=== PATIENT | male | born 1935 | race Asian ===

== ENCOUNTER 2017-09-16 10:32 | Inpatient (IN) | payer MEDICARE, OTHER, MEDICAID ==
[2017-09-16 11:18] LABS: ADD MAN DIFF? NO
[2017-09-16 11:23] LABS: BASOPHILS % 0.3 % (0.0-2.0); EOSINOPHILS % 0.2 % (0.0-7.0); HEMATOCRIT 28.3 % (42.0-52.0); HEMOGLOBIN 9.4 g/dl (14.0-18.0); LYMPHOCYTES # 0.8 10^3/ul (0.8-2.9); LYMPHOCYTES % 12.7 % (15.0-51.0); MEAN CORPUSCULAR HEMOGLOBIN 33.2 pg (29.0-33.0); MEAN CORPUSCULAR HGB CONC 33.2 g/dl (32.0-37.0); MEAN PLATELET VOLUME 9.9 fl (7.4-10.4); MONOCYTE # 0.4 10^3/ul (0.3-0.9); NEUTROPHIL # 4.8 10^3/ul (1.6-7.5); NEUTROPHILS % 79.6 % (39.0-77.0); PLATELET COUNT 164 10^3/UL (140-415); RED BLOOD COUNT 2.83 10^6/ul (4.70-6.10); RED CELL DISTRIBUTION WIDTH 12.7 % (11.5-14.5)
[2017-09-16] MEDS ORDERED: ATROPINE 1 MG/10 ML SYRINGE (11:42)
[2017-09-16] MEDS: SOD CHLORIDE 0.9% 1,000 ML IV (11:46)
[2017-09-16] MEDS: ATROPINE 1 MG INJ IV (11:46)
[2017-09-16 11:51] LABS: ALANINE AMINOTRANSFERASE 48 IU/L (13-69); ALKALINE PHOSPHATASE 43 IU/L (42-121); ANION GAP 15 (8-16); ASPARTATE AMINO TRANSFERASE 55 IU/L (15-46); BILIRUBIN,INDIRECT 0.4 mg/dl (0-1.1); BILIRUBIN,TOTAL 0.4 mg/dl (0.2-1.3); BLOOD UREA NITROGEN 38 mg/dl (7-20); CALCIUM 8.9 mg/dl (8.4-10.2); CARBON DIOXIDE 21 mmol/L (21-31); CHLORIDE 104 mmol/L (97-110); CREATININE 1.61 mg/dl (0.61-1.24); GLUCOSE 123 mg/dl (70-220); POTASSIUM 4.6 mmol/L (3.5-5.1); SODIUM 135 mmol/L (135-144)
[2017-09-16 11:52] LABS: ALBUMIN 3.8 g/dl (3.3-4.9); ALBUMIN/GLOBULIN RATIO 1.58; CREATINE KINASE 110 IU/L (23-200); TOTAL PROTEIN 6.2 g/dl (6.1-8.1)
[2017-09-16 11:56] LABS: INR 0.95; PROTIME 12.8 Sec (11.9-14.9)
[2017-09-16 11:57] LABS: PARTIAL THROMBOPLASTIN TIME 26.1 Sec (25.0-35.0)
[2017-09-16 12:01] LABS: B-TYPE NATRIURETIC PEPTIDE 2000 PG/ML (0-450); CK INDEX 1.1; CK-MB 1.25 ng/ml (0.0-2.4)
[2017-09-16 12:03] LABS: TROPONIN-I 0.123 ng/ml (0.000-0.120)
[2017-09-16] MEDS: ALBUTEROL 0.5% (NEB) 2.5 MG/0.5 ML AMP INH (12:12)
[2017-09-16] MEDS: ASPIRIN 325 MG TAB PO (13:08)
[2017-09-16] MEDS: ISOPROTERENOL IV ×4 (13:46→22:09)
[2017-09-16] MEDS: DEXTROSE 5% IV ×4 (13:46→22:09)
[2017-09-16] MEDS ORDERED: NA PHOSPHATE/BIPHOS 133 ML ENEMA PR (14:00)
[2017-09-16] MEDS ORDERED: DOCUSATE SODIUM 100 MG CAP PO ×2 (14:00)
[2017-09-16] MEDS ORDERED: ONDANSETRON 4 MG INJ IV (14:00)
[2017-09-16] MEDS ORDERED: ALBUTEROL/IPRATROPIUM (NEB) 3 ML AMP HHN (14:00)
[2017-09-16] MEDS ORDERED: hydrALAzine 20 MG INJ IV (14:00)
[2017-09-16] MEDS ORDERED: LORAZEPAM 2 MG INJ IV (14:00)
[2017-09-16] MEDS ORDERED: HYDROCODONE/APAP (5/325) TAB PO (14:00)
[2017-09-16] MEDS ORDERED: NACL 0.9% 3 ML SYG IV (14:00)
[2017-09-16] MEDS ORDERED: NITROGLYCERIN (SL) 0.4 MG TAB SL (14:00)
[2017-09-16] MEDS ORDERED: morphine 2 MG INJ IV (14:00)
[2017-09-16] MEDS ORDERED: MAGNESIUM HYDROXIDE 30ML CUP PO (14:00)
[2017-09-16 14:06] LABS: HEMOGLOBIN A1C 5.8 % (0-5.9)
[2017-09-16 14:20] LABS: FREE T4 (FREE THYROXINE) 1.25 ng/dl (0.85-1.93)
[2017-09-16] MEDS: SOD CHLORIDE 0.45% 1,000 ML IV (15:00)
[2017-09-16] MEDS: FISH OIL 1,000 MG CAP PO ×2 (16:04→20:12)
[2017-09-16 16:22] LABS: TROPONIN-I 0.133 ng/ml (0.000-0.120)
[2017-09-16] MEDS: CREON (24K-76K-120K) 1 CAP PO (17:42)
[2017-09-16] MEDS: DOXAZOSIN 4 MG TAB PO (20:12)
[2017-09-16] MEDS: LUBIPROSTONE 24 MCG CAP PO (20:12)
[2017-09-16] MEDS: BACLOFEN 10 MG TAB PO (20:12)
[2017-09-16] MEDS: ATORVASTATIN 40 MG TAB PO (20:12)
[2017-09-16] MEDS: HEPARIN 5,000 UNIT/0.5 ML VIAL SC (20:16)
[2017-09-16 20:22] LABS: TROPONIN-I 0.249 ng/ml (0.000-0.120)
[2017-09-17 00:56] LABS: TROPONIN-I 0.478 ng/ml (0.000-0.120)
[2017-09-17] MEDS: DEXTROSE 5% IV ×2 (02:10→07:05)
[2017-09-17] MEDS: ISOPROTERENOL IV ×2 (02:10→07:05)
[2017-09-17 05:31] LABS: ADD MAN DIFF? NO
[2017-09-17 05:43] LABS: WHITE BLOOD COUNT 7.3 10^3/ul (4.8-10.8)
[2017-09-17 05:43] LABS: BASOPHILS % 0.1 % (0.0-2.0); EOSINOPHILS % 0.3 % (0.0-7.0); HEMATOCRIT 25.9 % (42.0-52.0); HEMOGLOBIN 8.6 g/dl (14.0-18.0); LYMPHOCYTES # 1.1 10^3/ul (0.8-2.9); MEAN CORPUSCULAR HEMOGLOBIN 33.5 pg (29.0-33.0); MEAN CORPUSCULAR HGB CONC 33.2 g/dl (32.0-37.0); MEAN CORPUSCULAR VOLUME 100.8 fl (82.0-101.0); MEAN PLATELET VOLUME 9.8 fl (7.4-10.4); MONOCYTE # 0.6 10^3/ul (0.3-0.9); MONOCYTES % 8.3 % (0.0-11.0); NEUTROPHIL # 5.6 10^3/ul (1.6-7.5); PLATELET COUNT 165 10^3/UL (140-415); RED BLOOD COUNT 2.57 10^6/ul (4.70-6.10); RED CELL DISTRIBUTION WIDTH 12.8 % (11.5-14.5)
[2017-09-17 06:00] LABS: INR 0.95; PROTIME 12.8 Sec (11.9-14.9)
[2017-09-17 06:09] LABS: ANION GAP 12 (8-16); BLOOD UREA NITROGEN 27 mg/dl (7-20); CALCIUM 8.5 mg/dl (8.4-10.2); CARBON DIOXIDE 21 mmol/L (21-31); CHLORIDE 104 mmol/L (97-110); CHOLESTEROL 110 mg/dl (100-200); CREATININE 1.05 mg/dl (0.61-1.24); GLUCOSE 124 mg/dl (70-220); HDL CHOLESTEROL 36 mg/dl (31-75); LDL CHOLESTEROL,CALCULATED 54 mg/dl; POTASSIUM 3.1 mmol/L (3.5-5.1); SODIUM 134 mmol/L (135-144); TRIGLYCERIDES 99 mg/dl (0-149)
[2017-09-17 06:25] LABS: TROPONIN-I 0.503 ng/ml (0.000-0.120)
[2017-09-17 06:42] LABS: PHOSPHORUS 3.8 mg/dl (2.5-4.9)
[2017-09-17 06:42] LABS: MAGNESIUM 2.2 mg/dl (1.7-2.5)
[2017-09-17] MEDS: SOD CHLORIDE 0.45% 1,000 ML IV (07:05)
[2017-09-17] MEDS ORDERED: LIDOCAINE 1%/EPI 30 ML INJ (07:07)
[2017-09-17] MEDS: POLYMYXIN/BACITRACIN 1L IRRIG IRR (07:30)
[2017-09-17 07:32] LABS: HEMOGLOBIN A1C 5.4 % (0-5.9)
[2017-09-17] MEDS ORDERED: PROPOFOL 20 ML (07:43)
[2017-09-17] MEDS ORDERED: MIDAZOLAM 1 MG/ML 2 ML INJ (07:43)
[2017-09-17] MEDS ORDERED: FENTAnyl 50 MCG/ML VIAL (07:43)
[2017-09-17] MEDS: HEPARIN 5,000 UNIT/0.5 ML VIAL SC ×2 (08:56→21:08)
[2017-09-17] MEDS ORDERED: HYDROCHLOROTHIAZIDE 12.5 MG CAP PO (09:00)
[2017-09-17] MEDS ORDERED: LOSARTAN 50 MG TAB PO (09:00)
[2017-09-17] MEDS ORDERED: POTASSIUM CHLORIDE 50 ML IVPB (10:00)
[2017-09-17] MEDS: PANTOPRAZOLE (EC) 40 MG TAB PO (10:28)
[2017-09-17] MEDS: CREON (24K-76K-120K) 1 CAP PO ×3 (10:29→17:35)
[2017-09-17] MEDS: LUBIPROSTONE 24 MCG CAP PO ×2 (10:29→21:01)
[2017-09-17] MEDS: FISH OIL 1,000 MG CAP PO ×2 (10:29→21:07)
[2017-09-17] MEDS: NIFEdipine (XL) 30 MG TAB PO (10:29)
[2017-09-17] MEDS: BACLOFEN 10 MG TAB PO ×2 (10:33→21:31)
[2017-09-17] MEDS: CLOPIDOGREL 75 MG TAB PO (10:33)
[2017-09-17] MEDS: ACETAMINOPHEN 325 MG TAB PO (12:52)
[2017-09-17] MEDS: POTASSIUM CHLORIDE (SR) 20 MEQ TAB PO (12:52)
[2017-09-17] MEDS: ATORVASTATIN 40 MG TAB PO (21:06)
[2017-09-17] MEDS: DOXAZOSIN 4 MG TAB PO (21:07)
[2017-09-18] MEDS: SOD CHLORIDE 0.45% 1,000 ML IV (05:34)
[2017-09-18 06:38] LABS: ADD MAN DIFF? NO
[2017-09-18 06:42] LABS: BASOPHILS % 0.4 % (0.0-2.0); EOSINOPHILS # 0.1 10^3/ul (0.0-0.5); EOSINOPHILS % 0.8 % (0.0-7.0); HEMATOCRIT 28.7 % (42.0-52.0); HEMOGLOBIN 10.1 g/dl (14.0-18.0); LYMPHOCYTES # 0.8 10^3/ul (0.8-2.9); LYMPHOCYTES % 11.4 % (15.0-51.0); MEAN CORPUSCULAR HEMOGLOBIN 35.1 pg (29.0-33.0); MEAN CORPUSCULAR HGB CONC 35.2 g/dl (32.0-37.0); MEAN CORPUSCULAR VOLUME 99.7 fl (82.0-101.0); MEAN PLATELET VOLUME 9.8 fl (7.4-10.4); MONOCYTE # 0.6 10^3/ul (0.3-0.9); MONOCYTES % 8.6 % (0.0-11.0); NEUTROPHIL # 5.7 10^3/ul (1.6-7.5); NEUTROPHILS % 78.5 % (39.0-77.0); PLATELET COUNT 166 10^3/UL (140-415); RED BLOOD COUNT 2.88 10^6/ul (4.70-6.10); RED CELL DISTRIBUTION WIDTH 12.7 % (11.5-14.5)
[2017-09-18 06:42] LABS: WHITE BLOOD COUNT 7.2 10^3/ul (4.8-10.8)
[2017-09-18 07:19] LABS: ANION GAP 9 (8-16); BLOOD UREA NITROGEN 17 mg/dl (7-20); CALCIUM 9.1 mg/dl (8.4-10.2); CARBON DIOXIDE 24 mmol/L (21-31); CHLORIDE 113 mmol/L (97-110); CREATININE 0.95 mg/dl (0.61-1.24); GLUCOSE 108 mg/dl (70-220); POTASSIUM 3.8 mmol/L (3.5-5.1); SODIUM 142 mmol/L (135-144)
[2017-09-18] MEDS: LUBIPROSTONE 24 MCG CAP PO (09:28)
[2017-09-18] MEDS: CREON (24K-76K-120K) 1 CAP PO ×2 (09:28→12:31)
[2017-09-18] MEDS: CLOPIDOGREL 75 MG TAB PO (09:28)
[2017-09-18] MEDS: NIFEdipine (XL) 30 MG TAB PO (09:28)
[2017-09-18] MEDS: FISH OIL 1,000 MG CAP PO (09:28)
[2017-09-18] MEDS: PANTOPRAZOLE (EC) 40 MG TAB PO (09:28)
[2017-09-18] MEDS: BACLOFEN 10 MG TAB PO (09:28)
[2017-09-18] MEDS: HEPARIN 5,000 UNIT/0.5 ML VIAL SC (09:32)
== END 2017-09-18 17:15 | disposition home or self-care (01) | DRG 244 ==
LOC: E/R 10:32 → MS4 09-17 14:39 → ICU 12:40
PROC: 0JH604Z Insertion of Pacemaker, Single Chamber into Chest Subcutaneous Tissue and Fascia, Open Approach (ICD-10-PCS; principal; 2017-09-17 07:30)
PROC: 02HK3JZ Insertion of Pacemaker Lead into Right Ventricle, Percutaneous Approach (ICD-10-PCS; 2017-09-17 07:30)
DX: I44.2 Atrioventricular block, complete (principal); E78.5 Hyperlipidemia, unspecified; F03.90 Unspecified dementia, unspecified severity, without behavioral disturbance, psychotic disturbance, mood disturbance, and anxiety; I10 Essential (primary) hypertension; I25.10 Atherosclerotic heart disease of native coronary artery without angina pectoris; E87.6 Hypokalemia; R00.1 Bradycardia, unspecified; Z95.5 Presence of coronary angioplasty implant and graft; Z85.46 Personal history of malignant neoplasm of prostate; Z87.891 Personal history of nicotine dependence; Z79.02 Long term (current) use of antithrombotics/antiplatelets
CPT/HCPCS: 71045; 80048; 80053; 80061; 82550; 82553; 83036; 83735; 83880; 84100; 84439; 84443; 84484; 85025; 85610; 85730; 92610; 93005; 93306; 94644; 96374; 97161; 97530; 99291-25

== ENCOUNTER 2017-11-12 14:56 | Emergency (ER) | payer MEDICARE, OTHER ==
[2017-11-12 16:47] LABS: ADD MAN DIFF? NO
[2017-11-12 16:56] LABS: BASOPHILS % 0.4 % (0.0-2.0); EOSINOPHILS % 0.5 % (0.0-7.0); HEMATOCRIT 26.5 % (42.0-52.0); HEMOGLOBIN 8.8 g/dl (14.0-18.0); MEAN CORPUSCULAR HEMOGLOBIN 33.5 pg (29.0-33.0); MEAN CORPUSCULAR HGB CONC 33.2 g/dl (32.0-37.0); MEAN CORPUSCULAR VOLUME 100.8 fl (82.0-101.0); MEAN PLATELET VOLUME 9.9 fl (7.4-10.4); MONOCYTE # 0.7 10^3/ul (0.3-0.9); MONOCYTES % 10.2 % (0.0-11.0); NEUTROPHIL # 5.5 10^3/ul (1.6-7.5); NEUTROPHILS % 75.5 % (39.0-77.0); PLATELET COUNT 157 10^3/UL (140-415); RED BLOOD COUNT 2.63 10^6/ul (4.70-6.10); RED CELL DISTRIBUTION WIDTH 13.2 % (11.5-14.5)
[2017-11-12 16:56] LABS: WHITE BLOOD COUNT 7.3 10^3/ul (4.8-10.8)
[2017-11-12 16:58] LABS: ADD UMIC NO; UR ASCORBIC ACID 40 mg/dL (NEGATIVE); UR BILIRUBIN (Dip) NEGATIVE (NEGATIVE); UR BLOOD (Dip) NEGATIVE (NEGATIVE); UR CLARITY CLEAR (CLEAR); UR COLOR YELLOW (YELLOW); UR GLUCOSE (Dip) NEGATIVE (NEGATIVE); UR KETONES (Dip) NEGATIVE (NEGATIVE); UR LEUKOCYTE ESTERASE (Dip) NEGATIVE Leu/ul (NEGATIVE); UR NITRITE (Dip) NEGATIVE (NEGATIVE); UR SPECIFIC GRAVITY (Dip) 1.017 (1.003-1.030); UR TOTAL PROTEIN (Dip) NEGATIVE (NEGATIVE); UR UROBILINOGEN (Dip) 2+ mg/dL (NEGATIVE)
[2017-11-12] MEDS: SOD CHLORIDE 0.9% 500 ML IV (17:10)
[2017-11-12 17:13] LABS: INR 0.94; PARTIAL THROMBOPLASTIN TIME 29.6 Sec (25.0-35.0); PROTIME 12.7 Sec (11.9-14.9)
[2017-11-12 17:20] LABS: ANION GAP 12 (8-16); BLOOD UREA NITROGEN 27 mg/dl (7-20); CALCIUM 9.1 mg/dl (8.4-10.2); CARBON DIOXIDE 26 mmol/L (21-31); CHLORIDE 108 mmol/L (97-110); CREATININE 0.94 mg/dl (0.61-1.24); GLUCOSE 111 mg/dl (70-220); POTASSIUM 3.8 mmol/L (3.5-5.1); SODIUM 142 mmol/L (135-144)
[2017-11-12 17:31] LABS: TROPONIN-I 0.028 ng/ml (0.000-0.120)
[2017-11-12] MEDS ORDERED: ACETAMINOPHEN 325 MG TAB PO ×2 (18:30→19:00)
[2017-11-12] MEDS ORDERED: ONDANSETRON 4 MG INJ IV ×2 (18:30→19:00)
[2017-11-12] MEDS ORDERED: SOD CHLORIDE 0.9% 1,000 ML IV (19:00)
[2017-11-12] MEDS ORDERED: HYDROCODONE/APAP (5/325) TAB PO (19:00)
[2017-11-13] MEDS ORDERED: ALBUTEROL/IPRATROPIUM (NEB) 3 ML AMP HHN (06:00)
[2017-11-13] MEDS ORDERED: PANTOPRAZOLE (EC) 40 MG TAB PO (06:00)
[2017-11-13] MEDS ORDERED: ACETAMINOPHEN 325 MG TAB PO (06:00)
[2017-11-13] MEDS ORDERED: NACL 0.9% 3 ML SYG IV (06:00)
[2017-11-13] MEDS ORDERED: DOCUSATE SODIUM 100 MG CAP PO (06:00)
[2017-11-13] MEDS ORDERED: ONDANSETRON 4 MG INJ IV (06:00)
[2017-11-13] MEDS ORDERED: CLOPIDOGREL 75 MG TAB PO (09:00)
[2017-11-13] MEDS ORDERED: NON-FORMULARY/PATIENT OWN MED (Omega-3 Acid Ethyl Esters (Lovaza) 2 GM) PO (09:00)
[2017-11-13] MEDS ORDERED: NIFEdipine (XL) 30 MG TAB PO (09:00)
[2017-11-13] MEDS ORDERED: FISH OIL 1,000 MG CAP PO (09:00)
[2017-11-13] MEDS ORDERED: DOXAZOSIN 4 MG TAB PO (21:00)
[2017-11-13] MEDS ORDERED: ATORVASTATIN 40 MG TAB PO (21:00)
== END 2017-11-12 19:29 | disposition left against medical advice (07) ==
LOC: E/R 14:56
DX: S92.911A Unspecified fracture of right toe(s), initial encounter for closed fracture (principal); S30.0XXA Contusion of lower back and pelvis, initial encounter; R53.1 Weakness; I10 Essential (primary) hypertension; W18.30XA Fall on same level, unspecified, initial encounter; Y92.9 Unspecified place or not applicable; Z85.46 Personal history of malignant neoplasm of prostate
CPT/HCPCS: 29515; 36415; 70450; 71045; 72131; 73550; 73552; 73630; 80048; 81003; 84484; 85025; 85610; 85730; 93005; 99285-25

== ENCOUNTER 2017-11-13 12:25 | Inpatient (IN) | payer MEDICARE, OTHER ==
[2017-11-13 14:11] LABS: ADD MAN DIFF? NO
[2017-11-13 14:13] LABS: WHITE BLOOD COUNT 5.7 10^3/ul (4.8-10.8)
[2017-11-13 14:13] LABS: BASOPHILS % 0.4 % (0.0-2.0); EOSINOPHILS # 0.1 10^3/ul (0.0-0.5); EOSINOPHILS % 0.9 % (0.0-7.0); HEMATOCRIT 26.9 % (42.0-52.0); HEMOGLOBIN 8.8 g/dl (14.0-18.0); LYMPHOCYTES # 0.8 10^3/ul (0.8-2.9); LYMPHOCYTES % 14.2 % (15.0-51.0); MEAN CORPUSCULAR HEMOGLOBIN 33.6 pg (29.0-33.0); MEAN CORPUSCULAR HGB CONC 32.7 g/dl (32.0-37.0); MEAN CORPUSCULAR VOLUME 102.7 fl (82.0-101.0); MEAN PLATELET VOLUME 9.6 fl (7.4-10.4); MONOCYTE # 0.5 10^3/ul (0.3-0.9); MONOCYTES % 8.1 % (0.0-11.0); NEUTROPHIL # 4.3 10^3/ul (1.6-7.5); NEUTROPHILS % 76.2 % (39.0-77.0); PLATELET COUNT 157 10^3/UL (140-415); RED BLOOD COUNT 2.62 10^6/ul (4.70-6.10); RED CELL DISTRIBUTION WIDTH 13.2 % (11.5-14.5)
[2017-11-13 14:29] LABS: ANION GAP 12 (8-16); BLOOD UREA NITROGEN 21 mg/dl (7-20); CALCIUM 8.8 mg/dl (8.4-10.2); CARBON DIOXIDE 23 mmol/L (21-31); CHLORIDE 108 mmol/L (97-110); CREATININE 0.88 mg/dl (0.61-1.24); GLUCOSE 98 mg/dl (70-220); POTASSIUM 3.9 mmol/L (3.5-5.1); SODIUM 139 mmol/L (135-144)
[2017-11-13] MEDS ORDERED: ACETAMINOPHEN 325 MG TAB PO ×2 (15:00→18:00)
[2017-11-13] MEDS ORDERED: ONDANSETRON 4 MG INJ IV ×2 (15:00→18:00)
[2017-11-13] MEDS ORDERED: ALBUTEROL/IPRATROPIUM (NEB) 3 ML AMP HHN (18:00)
[2017-11-13] MEDS ORDERED: morphine 2 MG INJ IV (18:00)
[2017-11-13] MEDS ORDERED: hydrALAzine 20 MG INJ IV (18:00)
[2017-11-13] MEDS ORDERED: LORAZEPAM 2 MG INJ IV (18:00)
[2017-11-13] MEDS ORDERED: NACL 0.9% 3 ML SYG IV (18:00)
[2017-11-13] MEDS ORDERED: DOCUSATE SODIUM 100 MG CAP PO ×2 (18:00)
[2017-11-13] MEDS ORDERED: NA PHOSPHATE/BIPHOS 133 ML ENEMA PR (18:00)
[2017-11-13] MEDS ORDERED: HYDROCODONE/APAP (5/325) TAB PO (18:00)
[2017-11-13] MEDS ORDERED: NITROGLYCERIN (SL) 0.4 MG TAB SL (18:00)
[2017-11-13] MEDS ORDERED: MAGNESIUM HYDROXIDE 30ML CUP PO (18:00)
[2017-11-13 18:30] LABS: FREE T4 (FREE THYROXINE) 1.88 ng/dl (0.85-1.93)
[2017-11-13] MEDS: DOXAZOSIN 4 MG TAB PO (20:39)
[2017-11-13] MEDS: HEPARIN 5,000 UNIT/0.5 ML VIAL SC (20:39)
[2017-11-13] MEDS: FISH OIL 1,000 MG CAP PO (20:39)
[2017-11-13] MEDS: ATORVASTATIN 40 MG TAB PO (20:41)
[2017-11-13] MEDS: SOD CHLORIDE 0.45% 1,000 ML IV (20:52)
[2017-11-13] MEDS ORDERED: NON-FORMULARY/PATIENT OWN MED (Omega-3 Acid Ethyl Esters (Lovaza) 2 GM) PO (21:00)
[2017-11-14] MEDS ORDERED: PANTOPRAZOLE (EC) 40 MG TAB PO (06:00)
[2017-11-14] MEDS: SOD CHLORIDE 0.45% 1,000 ML IV (07:10)
[2017-11-14 08:07] LABS: CHOL/HDL RATIO 3.4 RATIO; HDL CHOLESTEROL 40 mg/dl (31-75); LDL CHOLESTEROL,CALCULATED 81 mg/dl; TRIGLYCERIDES 88 mg/dl (0-149)
[2017-11-14 08:07] LABS: CHOLESTEROL 139 mg/dl (100-200)
[2017-11-14 08:09] LABS: HEMOGLOBIN A1C 5.6 % (0-5.9)
[2017-11-14] MEDS: FISH OIL 1,000 MG CAP PO ×2 (09:47→20:12)
[2017-11-14] MEDS: FAMOTIDINE 20 MG TAB PO (09:48)
[2017-11-14] MEDS: NIFEdipine (XL) 30 MG TAB PO (09:48)
[2017-11-14] MEDS: CLOPIDOGREL 75 MG TAB PO (09:48)
[2017-11-14] MEDS: HEPARIN 5,000 UNIT/0.5 ML VIAL SC ×2 (10:08→20:27)
[2017-11-14] MEDS ORDERED: DICLOFENAC SODIUM 1% GEL 100 GM TUBE TP (13:00)
[2017-11-14] MEDS: ASPIRIN (EC) 81 MG TAB PO (13:36)
[2017-11-14] MEDS: DICLOFENAC SODIUM 1% GEL 100 GM TUBE TP ×3 (13:37→20:13)
[2017-11-14 13:53] LABS: B-TYPE NATRIURETIC PEPTIDE 2060 PG/ML (0-450)
[2017-11-14 18:37] LABS: TROPONIN-I 0.022 ng/ml (0.000-0.120)
[2017-11-14] MEDS: DOXAZOSIN 4 MG TAB PO (20:12)
[2017-11-14] MEDS: ATORVASTATIN 40 MG TAB PO (20:12)
[2017-11-14] MEDS: DORZOLAMIDE/TIMOLOL 10 ML OPH BOTH EYES (20:12)
[2017-11-15 01:17] LABS: TROPONIN-I 0.042 ng/ml (0.000-0.120)
[2017-11-15] MEDS: FAMOTIDINE 20 MG TAB PO (08:56)
[2017-11-15] MEDS: CLOPIDOGREL 75 MG TAB PO (08:56)
[2017-11-15] MEDS: FISH OIL 1,000 MG CAP PO ×2 (08:56→20:28)
[2017-11-15] MEDS: DICLOFENAC SODIUM 1% GEL 100 GM TUBE TP ×4 (08:57→20:38)
[2017-11-15] MEDS: DORZOLAMIDE/TIMOLOL 10 ML OPH BOTH EYES ×2 (08:57→20:36)
[2017-11-15] MEDS: NIFEdipine (XL) 30 MG TAB PO (08:57)
[2017-11-15] MEDS: HEPARIN 5,000 UNIT/0.5 ML VIAL SC ×2 (08:58→20:36)
[2017-11-15] MEDS: ASPIRIN (EC) 81 MG TAB PO (09:00)
[2017-11-15 10:46] LABS: ADD MAN DIFF? NO
[2017-11-15 10:58] LABS: BASOPHILS % 0.7 % (0.0-2.0); EOSINOPHILS # 0.1 10^3/ul (0.0-0.5); EOSINOPHILS % 1.1 % (0.0-7.0); HEMATOCRIT 30.3 % (42.0-52.0); HEMOGLOBIN 10.2 g/dl (14.0-18.0); LYMPHOCYTES # 0.9 10^3/ul (0.8-2.9); LYMPHOCYTES % 15.6 % (15.0-51.0); MEAN CORPUSCULAR HEMOGLOBIN 33.3 pg (29.0-33.0); MEAN CORPUSCULAR HGB CONC 33.7 g/dl (32.0-37.0); MEAN PLATELET VOLUME 9.7 fl (7.4-10.4); MONOCYTE # 0.4 10^3/ul (0.3-0.9); MONOCYTES % 7.5 % (0.0-11.0); NEUTROPHIL # 4.1 10^3/ul (1.6-7.5); NEUTROPHILS % 74.9 % (39.0-77.0); PLATELET COUNT 203 10^3/UL (140-415); RED BLOOD COUNT 3.06 10^6/ul (4.70-6.10); RED CELL DISTRIBUTION WIDTH 13.1 % (11.5-14.5)
[2017-11-15 10:58] LABS: WHITE BLOOD COUNT 5.5 10^3/ul (4.8-10.8)
[2017-11-15 11:16] LABS: ANION GAP 10 (8-16); BLOOD UREA NITROGEN 23 mg/dl (7-20); CALCIUM 8.8 mg/dl (8.4-10.2); CARBON DIOXIDE 24 mmol/L (21-31); CHLORIDE 107 mmol/L (97-110); CREATININE 0.94 mg/dl (0.61-1.24); GLUCOSE 109 mg/dl (70-220); POTASSIUM 4.2 mmol/L (3.5-5.1); SODIUM 137 mmol/L (135-144)
[2017-11-15 11:24] LABS: TROPONIN-I 0.016 ng/ml (0.000-0.120)
[2017-11-15 13:16] LABS: TROPONIN-I 0.018 ng/ml (0.000-0.120)
[2017-11-15 18:57] LABS: TROPONIN-I 0.016 ng/ml (0.000-0.120)
[2017-11-15] MEDS: ATORVASTATIN 40 MG TAB PO (20:28)
[2017-11-15] MEDS: DOXAZOSIN 4 MG TAB PO (20:29)
[2017-11-16 06:35] LABS: ADD MAN DIFF? NO
[2017-11-16 06:49] LABS: WHITE BLOOD COUNT 5.2 10^3/ul (4.8-10.8)
[2017-11-16 06:49] LABS: BASOPHIL # 0.1 10^3/ul (0.0-0.1); EOSINOPHILS # 0.1 10^3/ul (0.0-0.5); EOSINOPHILS % 1.7 % (0.0-7.0); HEMOGLOBIN 9.5 g/dl (14.0-18.0); LYMPHOCYTES # 1.2 10^3/ul (0.8-2.9); LYMPHOCYTES % 23.2 % (15.0-51.0); MEAN CORPUSCULAR HEMOGLOBIN 33.5 pg (29.0-33.0); MEAN CORPUSCULAR HGB CONC 33.9 g/dl (32.0-37.0); MEAN CORPUSCULAR VOLUME 98.6 fl (82.0-101.0); MEAN PLATELET VOLUME 9.9 fl (7.4-10.4); MONOCYTE # 0.5 10^3/ul (0.3-0.9); MONOCYTES % 8.8 % (0.0-11.0); NEUTROPHIL # 3.4 10^3/ul (1.6-7.5); NEUTROPHILS % 64.9 % (39.0-77.0); PLATELET COUNT 193 10^3/UL (140-415); RED BLOOD COUNT 2.84 10^6/ul (4.70-6.10)
[2017-11-16 07:09] LABS: ANION GAP 10 (8-16); CALCIUM 8.7 mg/dl (8.4-10.2); CARBON DIOXIDE 24 mmol/L (21-31); CHLORIDE 110 mmol/L (97-110); CREATININE 0.99 mg/dl (0.61-1.24); GLUCOSE 100 mg/dl (70-220); POTASSIUM 3.8 mmol/L (3.5-5.1); SODIUM 140 mmol/L (135-144)
[2017-11-16 07:10] LABS: BLOOD UREA NITROGEN 28 mg/dl (7-20)
[2017-11-16] MEDS: CLOPIDOGREL 75 MG TAB PO (08:53)
[2017-11-16] MEDS: FAMOTIDINE 20 MG TAB PO (08:53)
[2017-11-16] MEDS: DORZOLAMIDE/TIMOLOL 10 ML OPH BOTH EYES (08:53)
[2017-11-16] MEDS: FISH OIL 1,000 MG CAP PO (08:53)
[2017-11-16] MEDS: NIFEdipine (XL) 30 MG TAB PO (08:54)
[2017-11-16] MEDS: HEPARIN 5,000 UNIT/0.5 ML VIAL SC (08:54)
[2017-11-16] MEDS: ASPIRIN (EC) 81 MG TAB PO (08:55)
[2017-11-16] MEDS: DICLOFENAC SODIUM 1% GEL 100 GM TUBE TP ×3 (08:56→16:27)
== END 2017-11-16 20:00 | DRG 556 ==
LOC: TEL 18:05 → E/R 12:25 → PP2 14:40 → TEL 21:28
DX: M62.81 Muscle weakness (generalized) (principal); I25.10 Atherosclerotic heart disease of native coronary artery without angina pectoris; Z95.5 Presence of coronary angioplasty implant and graft; I10 Essential (primary) hypertension; Z95.0 Presence of cardiac pacemaker; Z79.02 Long term (current) use of antithrombotics/antiplatelets; Z85.46 Personal history of malignant neoplasm of prostate; E78.00 Pure hypercholesterolemia, unspecified; S92.341D Displaced fracture of fourth metatarsal bone, right foot, subsequent encounter for fracture with routine healing; S92.351D Displaced fracture of fifth metatarsal bone, right foot, subsequent encounter for fracture with routine healing; X58.XXXD Exposure to other specified factors, subsequent encounter; N40.0 Benign prostatic hyperplasia without lower urinary tract symptoms
CPT/HCPCS: 36415; 70450; 71045; 72131; 73550; 73552; 73630; 80048; 80061; 81003; 83036; 83880; 84439; 84443; 84484; 85025; 85610; 85730; 92610; 93005; 93306; 97116; 97162; 97166; 97530; 99217; 99285-25; G0378

== ENCOUNTER 2017-11-16 20:42 | Inpatient (IN) | payer MEDICARE, OTHER ==
[2017-11-16] MEDS ORDERED: ONDANSETRON 4 MG INJ IV (23:07)
[2017-11-16] MEDS ORDERED: NACL 0.9% 3 ML SYG IV (23:07)
[2017-11-16] MEDS ORDERED: ALBUTEROL/IPRATROPIUM (NEB) 3 ML AMP HHN (23:07)
[2017-11-16] MEDS ORDERED: NITROGLYCERIN (SL) 0.4 MG TAB SL (23:07)
[2017-11-16] MEDS ORDERED: LORAZEPAM 2 MG INJ IV (23:07)
[2017-11-16] MEDS ORDERED: hydrALAzine 20 MG INJ IV (23:07)
[2017-11-16] MEDS ORDERED: DOCUSATE SODIUM 100 MG CAP PO (23:07)
[2017-11-16] MEDS ORDERED: HYDROCODONE/APAP (5/325) TAB PO (23:07)
[2017-11-16] MEDS ORDERED: HEPARIN 5,000 UNIT/0.5 ML VIAL SC (23:07)
[2017-11-16] MEDS ORDERED: MAGNESIUM HYDROXIDE 30ML CUP PO (23:07)
[2017-11-16] MEDS ORDERED: DORZOLAMIDE/TIMOLOL 10 ML OPH BOTH EYES (23:07)
[2017-11-16] MEDS ORDERED: DOXAZOSIN 4 MG TAB PO (23:07)
[2017-11-16] MEDS ORDERED: ATORVASTATIN 40 MG TAB PO (23:07)
[2017-11-16] MEDS ORDERED: FISH OIL 1,000 MG CAP PO (23:07)
[2017-11-16] MEDS ORDERED: NA PHOSPHATE/BIPHOS 133 ML ENEMA PR (23:07)
[2017-11-16] MEDS: DORZOLAMIDE/TIMOLOL 10 ML OPH BOTH EYES (23:33)
[2017-11-16] MEDS: HEPARIN 5,000 UNIT/0.5 ML VIAL SC (23:35)
[2017-11-16] MEDS: ATORVASTATIN 40 MG TAB PO (23:36)
[2017-11-16] MEDS: FISH OIL 1,000 MG CAP PO (23:36)
[2017-11-16] MEDS: DOXAZOSIN 4 MG TAB PO (23:48)
[2017-11-17] MEDS ORDERED: BISACODYL 10 MG SUPP PR (01:30)
[2017-11-17] MEDS ORDERED: LACTULOSE 30ML CUP PO (01:30)
[2017-11-17] MEDS ORDERED: MAGNESIUM HYDROXIDE 30ML CUP PO (01:30)
[2017-11-17 03:18] LABS: ADD UMIC NO; UR ASCORBIC ACID 20 mg/dL (NEGATIVE); UR BILIRUBIN (Dip) NEGATIVE (NEGATIVE); UR BLOOD (Dip) NEGATIVE (NEGATIVE); UR CLARITY CLEAR (CLEAR); UR COLOR YELLOW (YELLOW); UR GLUCOSE (Dip) NEGATIVE (NEGATIVE); UR KETONES (Dip) NEGATIVE (NEGATIVE); UR LEUKOCYTE ESTERASE (Dip) NEGATIVE Leu/ul (NEGATIVE); UR NITRITE (Dip) NEGATIVE (NEGATIVE); UR SPECIFIC GRAVITY (Dip) 1.015 (1.003-1.030); UR TOTAL PROTEIN (Dip) NEGATIVE (NEGATIVE); UR UROBILINOGEN (Dip) 2+ mg/dL (NEGATIVE)
[2017-11-17] MEDS: CLOPIDOGREL 75 MG TAB PO (09:04)
[2017-11-17] MEDS: FISH OIL 1,000 MG CAP PO ×2 (09:04→20:58)
[2017-11-17] MEDS: DOCUSATE SODIUM 100 MG CAP PO ×2 (09:04→20:57)
[2017-11-17] MEDS: FAMOTIDINE 20 MG TAB PO (09:05)
[2017-11-17] MEDS: ASPIRIN (EC) 81 MG TAB PO (09:05)
[2017-11-17] MEDS: NIFEdipine (XL) 30 MG TAB PO (09:05)
[2017-11-17] MEDS: HEPARIN 5,000 UNIT/0.5 ML VIAL SC ×2 (09:11→20:59)
[2017-11-17] MEDS ORDERED: PENDING SANTYL ORDER FOR WOUND CARE XX (10:00)
[2017-11-17 10:26] LABS: ADD MAN DIFF? NO
[2017-11-17 10:32] LABS: BASOPHILS % 0.8 % (0.0-2.0); EOSINOPHILS # 0.1 10^3/ul (0.0-0.5); EOSINOPHILS % 2.4 % (0.0-7.0); HEMATOCRIT 29.8 % (42.0-52.0); LYMPHOCYTES # 1.1 10^3/ul (0.8-2.9); MEAN CORPUSCULAR HEMOGLOBIN 33.9 pg (29.0-33.0); MEAN CORPUSCULAR HGB CONC 33.6 g/dl (32.0-37.0); MONOCYTE # 0.5 10^3/ul (0.3-0.9); MONOCYTES % 9.4 % (0.0-11.0); NEUTROPHIL # 3.2 10^3/ul (1.6-7.5); NEUTROPHILS % 65.2 % (39.0-77.0); PLATELET COUNT 211 10^3/UL (140-415); RED BLOOD COUNT 2.95 10^6/ul (4.70-6.10); RED CELL DISTRIBUTION WIDTH 13.1 % (11.5-14.5)
[2017-11-17 10:32] LABS: WHITE BLOOD COUNT 4.9 10^3/ul (4.8-10.8)
[2017-11-17] MEDS: DORZOLAMIDE/TIMOLOL 10 ML OPH BOTH EYES ×2 (10:46→20:57)
[2017-11-17] MEDS: DICLOFENAC SODIUM 1% GEL 100 GM TUBE TP ×4 (10:48→20:57)
[2017-11-17] MEDS: morphine 2 MG INJ IV (10:51)
[2017-11-17 10:52] LABS: ALANINE AMINOTRANSFERASE 32 IU/L (13-69); ALBUMIN 3.6 g/dl (3.3-4.9); ALBUMIN/GLOBULIN RATIO 1.24; ALKALINE PHOSPHATASE 67 IU/L (42-121); ANION GAP 9 (8-16); ASPARTATE AMINO TRANSFERASE 42 IU/L (15-46); BILIRUBIN,INDIRECT 0.6 mg/dl (0-1.1); BILIRUBIN,TOTAL 0.6 mg/dl (0.2-1.3); BLOOD UREA NITROGEN 27 mg/dl (7-20); CALCIUM 8.6 mg/dl (8.4-10.2); CARBON DIOXIDE 24 mmol/L (21-31); CHLORIDE 110 mmol/L (97-110); CREATININE 0.95 mg/dl (0.61-1.24); GLUCOSE 97 mg/dl (70-220); POTASSIUM 3.9 mmol/L (3.5-5.1); SODIUM 139 mmol/L (135-144); TOTAL PROTEIN 6.5 g/dl (6.1-8.1)
[2017-11-17] MEDS: DOXAZOSIN 4 MG TAB PO (20:57)
[2017-11-17] MEDS: ATORVASTATIN 40 MG TAB PO (20:57)
[2017-11-17] MEDS: SENNA TAB PO (20:59)
[2017-11-18] MEDS: DOCUSATE SODIUM 100 MG CAP PO ×2 (08:53→21:01)
[2017-11-18] MEDS: NIFEdipine (XL) 30 MG TAB PO (08:53)
[2017-11-18] MEDS: DORZOLAMIDE/TIMOLOL 10 ML OPH BOTH EYES ×2 (08:53→21:06)
[2017-11-18] MEDS: FAMOTIDINE 20 MG TAB PO (08:53)
[2017-11-18] MEDS: CLOPIDOGREL 75 MG TAB PO (08:53)
[2017-11-18] MEDS: DICLOFENAC SODIUM 1% GEL 100 GM TUBE TP ×4 (08:54→21:07)
[2017-11-18] MEDS: FISH OIL 1,000 MG CAP PO ×2 (08:54→21:01)
[2017-11-18] MEDS: HEPARIN 5,000 UNIT/0.5 ML VIAL SC ×2 (09:03→21:02)
[2017-11-18] MEDS: ASPIRIN (EC) 81 MG TAB PO (11:55)
[2017-11-18] MEDS: ATORVASTATIN 40 MG TAB PO (21:01)
[2017-11-18] MEDS: SENNA TAB PO (21:01)
[2017-11-18] MEDS: ACETAMINOPHEN 325 MG TAB PO (21:01)
[2017-11-18] MEDS: DOXAZOSIN 4 MG TAB PO (21:05)
[2017-11-19] MEDS: DORZOLAMIDE/TIMOLOL 10 ML OPH BOTH EYES ×2 (09:00→21:18)
[2017-11-19] MEDS: DICLOFENAC SODIUM 1% GEL 100 GM TUBE TP ×4 (09:00→21:27)
[2017-11-19] MEDS: HEPARIN 5,000 UNIT/0.5 ML VIAL SC ×2 (09:00→21:23)
[2017-11-19] MEDS: NIFEdipine (XL) 30 MG TAB PO (10:00)
[2017-11-19] MEDS: FAMOTIDINE 20 MG TAB PO (19:36)
[2017-11-19] MEDS: ASPIRIN (EC) 81 MG TAB PO (19:36)
[2017-11-19] MEDS: CLOPIDOGREL 75 MG TAB PO (19:36)
[2017-11-19] MEDS: FISH OIL 1,000 MG CAP PO ×2 (19:36→21:00)
[2017-11-19] MEDS: DOCUSATE SODIUM 100 MG CAP PO ×2 (19:36→21:00)
[2017-11-19] MEDS: ATORVASTATIN 40 MG TAB PO (21:18)
[2017-11-19] MEDS: SENNA TAB PO (21:18)
[2017-11-19] MEDS: DOXAZOSIN 4 MG TAB PO (21:19)
[2017-11-20] MEDS: DOCUSATE SODIUM 100 MG CAP PO ×2 (08:53→20:22)
[2017-11-20] MEDS: CLOPIDOGREL 75 MG TAB PO (08:53)
[2017-11-20] MEDS: DORZOLAMIDE/TIMOLOL 10 ML OPH BOTH EYES ×2 (08:53→20:23)
[2017-11-20] MEDS: FAMOTIDINE 20 MG TAB PO (08:53)
[2017-11-20] MEDS: ASPIRIN (EC) 81 MG TAB PO (08:53)
[2017-11-20] MEDS: FISH OIL 1,000 MG CAP PO ×2 (08:53→20:22)
[2017-11-20] MEDS: NIFEdipine (XL) 30 MG TAB PO (08:54)
[2017-11-20] MEDS: HEPARIN 5,000 UNIT/0.5 ML VIAL SC ×2 (08:59→20:24)
[2017-11-20] MEDS: DICLOFENAC SODIUM 1% GEL 100 GM TUBE TP ×4 (09:06→20:31)
[2017-11-20] MEDS: FINASTERIDE 5 MG TAB PO (15:49)
[2017-11-20] MEDS: SENNA TAB PO (20:22)
[2017-11-20] MEDS: ATORVASTATIN 40 MG TAB PO (20:22)
[2017-11-20] MEDS: DOXAZOSIN 4 MG TAB PO (20:22)
[2017-11-21] MEDS: DORZOLAMIDE/TIMOLOL 10 ML OPH BOTH EYES ×2 (09:06→21:00)
[2017-11-21] MEDS: FINASTERIDE 5 MG TAB PO (09:06)
[2017-11-21] MEDS: FISH OIL 1,000 MG CAP PO ×2 (09:06→21:00)
[2017-11-21] MEDS: DOCUSATE SODIUM 100 MG CAP PO ×2 (09:06→21:01)
[2017-11-21] MEDS: CLOPIDOGREL 75 MG TAB PO (09:06)
[2017-11-21] MEDS: ASPIRIN (EC) 81 MG TAB PO (09:06)
[2017-11-21] MEDS: DICLOFENAC SODIUM 1% GEL 100 GM TUBE TP ×4 (09:07→21:00)
[2017-11-21] MEDS: NIFEdipine (XL) 30 MG TAB PO (09:07)
[2017-11-21] MEDS: FAMOTIDINE 20 MG TAB PO (09:07)
[2017-11-21] MEDS: HEPARIN 5,000 UNIT/0.5 ML VIAL SC ×2 (09:19→21:01)
[2017-11-21] MEDS: SENNA TAB PO (21:01)
[2017-11-21] MEDS: ATORVASTATIN 40 MG TAB PO (21:02)
[2017-11-21] MEDS: DOXAZOSIN 4 MG TAB PO (21:02)
[2017-11-22 06:59] LABS: ADD MAN DIFF? NO
[2017-11-22 07:07] LABS: WHITE BLOOD COUNT 5.5 10^3/ul (4.8-10.8)
[2017-11-22 07:07] LABS: BASOPHIL # 0.1 10^3/ul (0.0-0.1); BASOPHILS % 0.9 % (0.0-2.0); EOSINOPHILS # 0.1 10^3/ul (0.0-0.5); EOSINOPHILS % 1.6 % (0.0-7.0); HEMATOCRIT 29.9 % (42.0-52.0); HEMOGLOBIN 10.1 g/dl (14.0-18.0); LYMPHOCYTES # 1.5 10^3/ul (0.8-2.9); LYMPHOCYTES % 26.8 % (15.0-51.0); MEAN CORPUSCULAR HEMOGLOBIN 33.6 pg (29.0-33.0); MEAN CORPUSCULAR HGB CONC 33.8 g/dl (32.0-37.0); MEAN CORPUSCULAR VOLUME 99.3 fl (82.0-101.0); MEAN PLATELET VOLUME 9.6 fl (7.4-10.4); MONOCYTE # 0.5 10^3/ul (0.3-0.9); MONOCYTES % 8.7 % (0.0-11.0); NEUTROPHIL # 3.4 10^3/ul (1.6-7.5); NEUTROPHILS % 61.6 % (39.0-77.0); PLATELET COUNT 228 10^3/UL (140-415); RED BLOOD COUNT 3.01 10^6/ul (4.70-6.10); RED CELL DISTRIBUTION WIDTH 13.3 % (11.5-14.5)
[2017-11-22 08:10] LABS: IRON 99 ug/dl (35-150)
[2017-11-22 08:12] LABS: ALANINE AMINOTRANSFERASE 29 IU/L (13-69); ALBUMIN 3.3 g/dl (3.3-4.9); ALKALINE PHOSPHATASE 65 IU/L (42-121); ANION GAP 13 (8-16); ASPARTATE AMINO TRANSFERASE 25 IU/L (15-46); BILIRUBIN,INDIRECT 0.6 mg/dl (0-1.1); BILIRUBIN,TOTAL 0.6 mg/dl (0.2-1.3); BLOOD UREA NITROGEN 27 mg/dl (7-20); CALCIUM 9.1 mg/dl (8.4-10.2); CARBON DIOXIDE 22 mmol/L (21-31); CHLORIDE 108 mmol/L (97-110); CREATININE 0.97 mg/dl (0.61-1.24); GLUCOSE 103 mg/dl (70-220); POTASSIUM 3.9 mmol/L (3.5-5.1); SODIUM 139 mmol/L (135-144); TOTAL PROTEIN 6.3 g/dl (6.1-8.1)
[2017-11-22 08:15] LABS: THYROID STIMULATING HORMONE 0.938 MIU/L (0.465-4.680)
[2017-11-22 08:19] LABS: % IRON SATURATION 29 % SAT (22-52); FERRITIN 47.1 ng/ml (11.1-264.0); TOTAL IRON BINDING CAPACITY 345 ug/dl (241-421)
[2017-11-22 08:34] LABS: HEPATITIS C VIRAL ANTIBODY NEGATIVE (NEGATIVE)
[2017-11-22] MEDS: ASPIRIN (EC) 81 MG TAB PO (09:00)
[2017-11-22] MEDS: DICLOFENAC SODIUM 1% GEL 100 GM TUBE TP ×4 (10:04→21:00)
[2017-11-22] MEDS: DOCUSATE SODIUM 100 MG CAP PO ×2 (10:05→22:05)
[2017-11-22] MEDS: FAMOTIDINE 20 MG TAB PO (10:06)
[2017-11-22] MEDS: NIFEdipine (XL) 30 MG TAB PO (10:06)
[2017-11-22] MEDS: CLOPIDOGREL 75 MG TAB PO (10:06)
[2017-11-22] MEDS: FISH OIL 1,000 MG CAP PO ×2 (10:07→22:05)
[2017-11-22] MEDS: DORZOLAMIDE/TIMOLOL 10 ML OPH BOTH EYES ×2 (10:08→22:04)
[2017-11-22] MEDS: FINASTERIDE 5 MG TAB PO (10:09)
[2017-11-22] MEDS: HEPARIN 5,000 UNIT/0.5 ML VIAL SC ×2 (10:12→21:00)
[2017-11-22 19:38] LABS: RAPID PLASMA REAGIN NONREACTIVE (NR)
[2017-11-22] MEDS: SENNA TAB PO (22:05)
[2017-11-22] MEDS: ATORVASTATIN 40 MG TAB PO (22:05)
[2017-11-22] MEDS: DOXAZOSIN 4 MG TAB PO (22:07)
[2017-11-23] MEDS: HEPARIN 5,000 UNIT/0.5 ML VIAL SC ×3 (09:00→20:33)
[2017-11-23] MEDS: DORZOLAMIDE/TIMOLOL 10 ML OPH BOTH EYES ×2 (09:40→20:23)
[2017-11-23] MEDS: DOCUSATE SODIUM 100 MG CAP PO ×2 (09:41→20:22)
[2017-11-23] MEDS: FISH OIL 1,000 MG CAP PO ×2 (09:41→20:22)
[2017-11-23] MEDS: ASPIRIN (EC) 81 MG TAB PO (09:41)
[2017-11-23] MEDS: FINASTERIDE 5 MG TAB PO (09:42)
[2017-11-23] MEDS: FAMOTIDINE 20 MG TAB PO (09:42)
[2017-11-23] MEDS: CLOPIDOGREL 75 MG TAB PO (09:42)
[2017-11-23] MEDS: NIFEdipine (XL) 30 MG TAB PO (09:42)
[2017-11-23] MEDS: DICLOFENAC SODIUM 1% GEL 100 GM TUBE TP ×4 (09:42→20:30)
[2017-11-23] MEDS: DOXAZOSIN 4 MG TAB PO (20:22)
[2017-11-23] MEDS: SENNA TAB PO (20:23)
[2017-11-23] MEDS: ATORVASTATIN 40 MG TAB PO (20:24)
[2017-11-24] MEDS: FAMOTIDINE 20 MG TAB PO (08:27)
[2017-11-24] MEDS: NIFEdipine (XL) 30 MG TAB PO (08:27)
[2017-11-24] MEDS: FISH OIL 1,000 MG CAP PO ×2 (08:27→21:37)
[2017-11-24] MEDS: FINASTERIDE 5 MG TAB PO (08:27)
[2017-11-24] MEDS: DOCUSATE SODIUM 100 MG CAP PO ×2 (08:27→21:37)
[2017-11-24] MEDS: DORZOLAMIDE/TIMOLOL 10 ML OPH BOTH EYES ×2 (08:27→21:36)
[2017-11-24] MEDS: ASPIRIN (EC) 81 MG TAB PO (08:27)
[2017-11-24] MEDS: CLOPIDOGREL 75 MG TAB PO (08:27)
[2017-11-24] MEDS: HEPARIN 5,000 UNIT/0.5 ML VIAL SC ×2 (08:28→21:38)
[2017-11-24] MEDS: DICLOFENAC SODIUM 1% GEL 100 GM TUBE TP ×4 (08:29→21:00)
[2017-11-24] MEDS: SENNA TAB PO (21:36)
[2017-11-24] MEDS: ATORVASTATIN 40 MG TAB PO (21:37)
[2017-11-24] MEDS: DOXAZOSIN 4 MG TAB PO (21:40)
[2017-11-25] MEDS: DOCUSATE SODIUM 100 MG CAP PO (08:42)
[2017-11-25] MEDS: FINASTERIDE 5 MG TAB PO (08:42)
[2017-11-25] MEDS: DORZOLAMIDE/TIMOLOL 10 ML OPH BOTH EYES (08:42)
[2017-11-25] MEDS: CLOPIDOGREL 75 MG TAB PO (08:42)
[2017-11-25] MEDS: FISH OIL 1,000 MG CAP PO (08:42)
[2017-11-25] MEDS: ASPIRIN (EC) 81 MG TAB PO (08:42)
[2017-11-25] MEDS: FAMOTIDINE 20 MG TAB PO (08:42)
[2017-11-25] MEDS: NIFEdipine (XL) 30 MG TAB PO (08:42)
[2017-11-25] MEDS: DICLOFENAC SODIUM 1% GEL 100 GM TUBE TP ×2 (08:43→14:17)
[2017-11-25] MEDS: HEPARIN 5,000 UNIT/0.5 ML VIAL SC (08:43)
== END 2017-11-25 15:30 | disposition home health service (06) | DRG 561 ==
LOC: VRC 11-24 12:51
PROC: F07Z5ZZ Bed Mobility Treatment (ICD-10-PCS; principal; 2017-11-16)
PROC: F08Z2ZZ Grooming/Personal Hygiene Treatment (ICD-10-PCS; 2017-11-16)
DX: S92.341D Displaced fracture of fourth metatarsal bone, right foot, subsequent encounter for fracture with routine healing (principal); S92.351D Displaced fracture of fifth metatarsal bone, right foot, subsequent encounter for fracture with routine healing; R53.81 Other malaise; R53.1 Weakness; M54.5 Low back pain; I10 Essential (primary) hypertension; E78.5 Hyperlipidemia, unspecified; I25.10 Atherosclerotic heart disease of native coronary artery without angina pectoris; N40.0 Benign prostatic hyperplasia without lower urinary tract symptoms; Z79.82 Long term (current) use of aspirin; I34.0 Nonrheumatic mitral (valve) insufficiency; D64.9 Anemia, unspecified
CPT/HCPCS: 80053; 81003; 82728; 83540; 83735; 84443; 85025; 86592; 86803; 87081; 87086; 97110; 97112; 97116; 97150; 97163; 97530; 97535; 97542

== ENCOUNTER 2018-02-18 14:26 | Inpatient (IN) | payer MEDICARE, OTHER ==
[2018-02-18 15:10] LABS: ADD MAN DIFF? NO
[2018-02-18 15:13] LABS: WHITE BLOOD COUNT 14.2 10^3/ul (4.8-10.8)
[2018-02-18 15:13] LABS: ABNORMAL IP MESSAGE 1; BASOPHILS % 0.1 % (0.0-2.0); HEMATOCRIT 26.9 % (42.0-52.0); HEMOGLOBIN 8.9 g/dl (14.0-18.0); LYMPHOCYTES # 0.3 10^3/ul (0.8-2.9); LYMPHOCYTES % 2.3 % (15.0-51.0); MEAN CORPUSCULAR HEMOGLOBIN 32.2 pg (29.0-33.0); MEAN CORPUSCULAR HGB CONC 33.1 g/dl (32.0-37.0); MEAN CORPUSCULAR VOLUME 97.5 fl (82.0-101.0); MEAN PLATELET VOLUME 11.2 fl (7.4-10.4); MONOCYTE # 0.7 10^3/ul (0.3-0.9); PLATELET COUNT 196 10^3/UL (140-415); POSITIVE DIFF @See below; RED BLOOD COUNT 2.76 10^6/ul (4.70-6.10); RED CELL DISTRIBUTION WIDTH 12.7 % (11.5-14.5)
[2018-02-18] MEDS: CEFEPIME 2GM/50 ML (PMX) 50 ML IVPB (15:13)
[2018-02-18 15:28] LABS: ADD UMIC NO; UR ASCORBIC ACID 20 mg/dL (NEGATIVE); UR BILIRUBIN (Dip) NEGATIVE (NEGATIVE); UR BLOOD (Dip) NEGATIVE (NEGATIVE); UR CLARITY CLEAR (CLEAR); UR COLOR YELLOW (YELLOW); UR GLUCOSE (Dip) NEGATIVE (NEGATIVE); UR KETONES (Dip) NEGATIVE (NEGATIVE); UR LEUKOCYTE ESTERASE (Dip) NEGATIVE Leu/ul (NEGATIVE); UR NITRITE (Dip) NEGATIVE (NEGATIVE); UR SPECIFIC GRAVITY (Dip) 1.016 (1.003-1.030); UR TOTAL PROTEIN (Dip) NEGATIVE (NEGATIVE); UR UROBILINOGEN (Dip) NEGATIVE (NEGATIVE)
[2018-02-18] MEDS: SODIUM CHLORIDE 0.9% 1L BAG IV* (15:31)
[2018-02-18] MEDS: VANCOMYCIN 1 GM (PMX) 250 ML IVPB (15:32)
[2018-02-18 15:33] LABS: ANION GAP 19 (5-13); BLOOD UREA NITROGEN 59 mg/dl (7-20); CALCIUM 8.6 mg/dl (8.4-10.2); CARBON DIOXIDE 17 mmol/L (21-31); CHLORIDE 100 mmol/L (97-110); CREATININE 1.54 mg/dl (0.61-1.24); GLUCOSE 245 mg/dl (70-220); SODIUM 136 mmol/L (135-144)
[2018-02-18 15:34] LABS: INR 1.24; PROTIME 15.8 Sec (11.9-14.9); PT RATIO 1.2
[2018-02-18 15:35] LABS: PARTIAL THROMBOPLASTIN TIME 37.5 Sec (23.0-35.0)
[2018-02-18 15:44] LABS: TROPONIN-I 0.108 ng/ml (0.000-0.120)
[2018-02-18] MEDS ORDERED: ONDANSETRON 4 MG INJ IV ×2 (17:00→17:30)
[2018-02-18] MEDS ORDERED: ACETAMINOPHEN 325 MG TAB PO (17:00)
[2018-02-18] MEDS ORDERED: DOCUSATE SODIUM 100 MG CAP PO (17:30)
[2018-02-18] MEDS ORDERED: morphine 2 MG INJ IV (17:30)
[2018-02-18] MEDS ORDERED: NACL 0.9% 3 ML SYG IV (17:30)
[2018-02-18] MEDS: LORAZEPAM 2 MG INJ IV (17:36)
[2018-02-18] MEDS: HALOPERIDOL 5 MG INJ IM ×2 (18:12→18:51)
[2018-02-18] MEDS: SOD CHLORIDE 0.9% 1,000 ML IV (18:30)
[2018-02-18 18:39] LABS: AADO2 Arterial 579.5 mmHg (7.0-24.0); Allen Test ACCEPTAB; Arterial Blood Gas Oxygen Sat 97.4 mmHG (95.0-100.0); Arterial COHb 0.3 % (0.0-3.0); Arterial Fraction of Oxyhgb 96.9 % (93.0-99.0); Arterial HCO3 16.7 mmol/L (22.0-26.0); Arterial MetHb 0.2 % (0.0-1.5); Arterial pCO2 24.4 mmhg (35-45); Blood Gas IEPAP 15/5; Blood Gas PS 10; MODE MASK - BIPAP; Site Right Radial
[2018-02-18 20:07] LABS: LACTIC ACID 2.3 mmol/L (0.5-2.0)
[2018-02-18] MEDS: DOCUSATE SODIUM 100 MG CAP PO (21:00)
[2018-02-18] MEDS: DOXAZOSIN 4 MG TAB PO (21:00)
[2018-02-18] MEDS: ATORVASTATIN 40 MG TAB PO (21:00)
[2018-02-18] MEDS: BACLOFEN 10 MG TAB PO (21:00)
[2018-02-18] MEDS: NIFEdipine (XL) 30 MG TAB PO (21:00)
[2018-02-18] MEDS ORDERED: CEFEPIME 2GM/50 ML (PMX) 50 ML IVPB (22:00)
[2018-02-18] MEDS: FAMOTIDINE 20 MG INJ IV (23:07)
[2018-02-18] MEDS: LORAZEPAM 4 MG/ML VIAL IV (23:26)
[2018-02-19] MEDS: SOD CHLORIDE 0.9% 1,000 ML IV ×4 (00:50→17:40)
[2018-02-19] MEDS: HALOPERIDOL 5 MG INJ IM (02:37)
[2018-02-19 06:24] LABS: ADD MAN DIFF? NO
[2018-02-19 06:27] LABS: WHITE BLOOD COUNT 15.1 10^3/ul (4.8-10.8)
[2018-02-19 06:27] LABS: ABNORMAL IP MESSAGE 1; BASOPHILS % 0.1 % (0.0-2.0); HEMATOCRIT 23.1 % (42.0-52.0); HEMOGLOBIN 7.8 g/dl (14.0-18.0); LYMPHOCYTES # 0.3 10^3/ul (0.8-2.9); MEAN CORPUSCULAR HEMOGLOBIN 32.4 pg (29.0-33.0); MEAN CORPUSCULAR HGB CONC 33.8 g/dl (32.0-37.0); MEAN CORPUSCULAR VOLUME 95.9 fl (82.0-101.0); MEAN PLATELET VOLUME 10.7 fl (7.4-10.4); MONOCYTE # 0.4 10^3/ul (0.3-0.9); MONOCYTES % 2.4 % (0.0-11.0); NEUTROPHIL # 14.3 10^3/ul (1.6-7.5); NEUTROPHILS % 94.9 % (39.0-77.0); PLATELET COUNT 163 10^3/UL (140-415); POSITIVE DIFF @See below; RED BLOOD COUNT 2.41 10^6/ul (4.70-6.10); RED CELL DISTRIBUTION WIDTH 12.7 % (11.5-14.5)
[2018-02-19] MEDS ORDERED: ETOMIDATE 20 MG INJ (07:00)
[2018-02-19] MEDS ORDERED: VECURONIUM 10 MG VIAL (07:00)
[2018-02-19 07:07] LABS: ALANINE AMINOTRANSFERASE 33 IU/L (13-69); ALBUMIN 3.2 g/dl (3.3-4.9); ALBUMIN/GLOBULIN RATIO 1.14; ALKALINE PHOSPHATASE 58 IU/L (42-121); ANION GAP 14 (5-13); ASPARTATE AMINO TRANSFERASE 56 IU/L (15-46); BILIRUBIN,INDIRECT 0.2 mg/dl (0-1.1); BILIRUBIN,TOTAL 0.2 mg/dl (0.2-1.3); BLOOD UREA NITROGEN 67 mg/dl (7-20); CALCIUM 7.9 mg/dl (8.4-10.2); CARBON DIOXIDE 18 mmol/L (21-31); CHLORIDE 109 mmol/L (97-110); CREATININE 1.47 mg/dl (0.61-1.24); GLUCOSE 133 mg/dl (70-220); SODIUM 141 mmol/L (135-144)
[2018-02-19] MEDS: DONEPEZIL 5 MG TAB PO (09:00)
[2018-02-19] MEDS: PREGABALIN 25 MG CAP PO (09:00)
[2018-02-19] MEDS: NIFEdipine (XL) 30 MG TAB PO ×2 (09:00→21:00)
[2018-02-19] MEDS: FLUTICASONE 0.05% 16 GM NAS SPRAY NASAL (09:00)
[2018-02-19] MEDS: PANTOPRAZOLE (EC) 40 MG TAB PO (09:00)
[2018-02-19 10:40] LABS: AADO2 Arterial 531.1 mmHg (7.0-24.0); Allen Test ACCEPTAB; Arterial Base Excess -7.8 mmol/L (-3.0-3); Arterial COHb 0.3 % (0.0-3.0); Arterial Fraction of Oxyhgb 97.4 % (93.0-99.0); Arterial HCO3 18.5 mmol/L (22.0-26.0); Arterial MetHb 0.3 % (0.0-1.5); Arterial pCO2 40.6 mmhg (35-45); MODE VENT - AC; Site Right Radial
[2018-02-19] MEDS: LEVOFLOXACIN 250MG/D5W (PMX) 50 ML IVPB (10:55)
[2018-02-19] MEDS: ENOXAPARIN 30 MG/0.3 ML SYG SC (11:02)
[2018-02-19] MEDS: FINASTERIDE 5 MG TAB PO (11:06)
[2018-02-19] MEDS: BACLOFEN 10 MG TAB PO ×2 (11:09→21:05)
[2018-02-19] MEDS: HYDROCHLOROTHIAZIDE 12.5 MG CAP PO (11:09)
[2018-02-19] MEDS: DOCUSATE SODIUM 100 MG CAP PO ×2 (11:09→21:05)
[2018-02-19] MEDS: FAMOTIDINE 20 MG INJ IV ×2 (11:22→21:05)
[2018-02-19] MEDS: CEFEPIME 2GM/50 ML (PMX) 50 ML IVPB ×3 (11:23→21:06)
[2018-02-19] MEDS: NA BICARBONATE 8.4% 50 ML SYG IV (12:59)
[2018-02-19] MEDS: PROPOFOL 100 ML IV ×2 (13:43→22:48)
[2018-02-19] MEDS: PREGABALIN 50 MG CAP PO (14:09)
[2018-02-19] MEDS: DOXAZOSIN 4 MG TAB PO (21:00)
[2018-02-19] MEDS: ATORVASTATIN 40 MG TAB PO (21:05)
[2018-02-20 05:42] LABS: CREATINE KINASE 94 IU/L (23-200)
[2018-02-20] MEDS: PROPOFOL 100 ML IV ×3 (06:00→21:23)
[2018-02-20] MEDS: SOD CHLORIDE 0.9% 1,000 ML IV (06:00)
[2018-02-20 08:28] LABS: ADD MAN DIFF? NO
[2018-02-20 08:30] LABS: WHITE BLOOD COUNT 9.6 10^3/ul (4.8-10.8)
[2018-02-20 08:30] LABS: ABNORMAL IP MESSAGE 1; BASOPHILS % 0.1 % (0.0-2.0); EOSINOPHILS % 0.4 % (0.0-7.0); HEMATOCRIT 23.5 % (42.0-52.0); HEMOGLOBIN 7.7 g/dl (14.0-18.0); LYMPHOCYTES # 0.4 10^3/ul (0.8-2.9); LYMPHOCYTES % 3.8 % (15.0-51.0); MEAN CORPUSCULAR HGB CONC 32.8 g/dl (32.0-37.0); MEAN CORPUSCULAR VOLUME 97.5 fl (82.0-101.0); MEAN PLATELET VOLUME 11.3 fl (7.4-10.4); MONOCYTE # 0.3 10^3/ul (0.3-0.9); MONOCYTES % 2.9 % (0.0-11.0); NEUTROPHIL # 8.8 10^3/ul (1.6-7.5); NEUTROPHILS % 92.3 % (39.0-77.0); PLATELET COUNT 185 10^3/UL (140-415); POSITIVE DIFF @See below; RED BLOOD COUNT 2.41 10^6/ul (4.70-6.10); RED CELL DISTRIBUTION WIDTH 13.2 % (11.5-14.5)
[2018-02-20] MEDS: CEFEPIME 2GM/50 ML (PMX) 50 ML IVPB ×2 (08:52→21:34)
[2018-02-20] MEDS: FINASTERIDE 5 MG TAB PO (08:52)
[2018-02-20] MEDS: FAMOTIDINE 20 MG INJ IV ×2 (08:52→21:24)
[2018-02-20] MEDS: PANTOPRAZOLE (EC) 40 MG TAB PO (08:53)
[2018-02-20] MEDS: NIFEdipine (XL) 30 MG TAB PO ×2 (08:53→21:00)
[2018-02-20] MEDS: HYDROCHLOROTHIAZIDE 12.5 MG CAP PO (08:53)
[2018-02-20] MEDS: DONEPEZIL 5 MG TAB PO (08:53)
[2018-02-20] MEDS: BACLOFEN 10 MG TAB PO ×2 (08:53→21:27)
[2018-02-20] MEDS: DOCUSATE SODIUM 100 MG CAP PO (08:54)
[2018-02-20] MEDS: FLUTICASONE 0.05% 16 GM NAS SPRAY NASAL (08:55)
[2018-02-20] MEDS: PREGABALIN 50 MG CAP PO (08:58)
[2018-02-20] MEDS: ENOXAPARIN 30 MG/0.3 ML SYG SC (09:01)
[2018-02-20 09:08] LABS: ALANINE AMINOTRANSFERASE 42 IU/L (13-69); ALBUMIN 2.8 g/dl (3.3-4.9); ALBUMIN/GLOBULIN RATIO 0.93; ALKALINE PHOSPHATASE 90 IU/L (42-121); ANION GAP 11 (5-13); ASPARTATE AMINO TRANSFERASE 78 IU/L (15-46); BILIRUBIN,INDIRECT 0.2 mg/dl (0-1.1); BILIRUBIN,TOTAL 0.2 mg/dl (0.2-1.3); BLOOD UREA NITROGEN 61 mg/dl (7-20); CALCIUM 7.7 mg/dl (8.4-10.2); CARBON DIOXIDE 21 mmol/L (21-31); CHLORIDE 115 mmol/L (97-110); GLUCOSE 114 mg/dl (70-220); MAGNESIUM 3.6 mg/dl (1.7-2.5); POTASSIUM 4.2 mmol/L (3.5-5.1); SODIUM 147 mmol/L (135-144); TOTAL PROTEIN 5.8 g/dl (6.1-8.1)
[2018-02-20] MEDS: LEVOFLOXACIN 250MG/D5W (PMX) 50 ML IVPB (10:13)
[2018-02-20 10:17] LABS: AADO2 Arterial 287.9 mmHg (7.0-24.0); Allen Test ACCEPTAB; Arterial Base Excess -2.9 mmol/L (-3.0-3); Arterial Blood Gas Oxygen Sat 91.6 mmHG (95.0-100.0); Arterial COHb 0.3 % (0.0-3.0); Arterial Fraction of Oxyhgb 91.1 % (93.0-99.0); Arterial HCO3 21.4 mmol/L (22.0-26.0); Arterial MetHb 0.3 % (0.0-1.5); Arterial pCO2 34.8 mmhg (35-45); MODE VENT - AC; Site Right Radial
[2018-02-20 11:08] LABS: CREATININE,URINE RANDOM 85.09 mg/dl (20-370); PROTEIN/CREAT RATIO 0.24 RATIO
[2018-02-20 11:21] LABS: SODIUM,URINE RANDOM < 13 mmol/L (30-90)
[2018-02-20] MEDS: LIDOCAINE 1% (MPF) 5 ML VIAL INJ (17:56)
[2018-02-20] MEDS: DOXAZOSIN 4 MG TAB PO (21:00)
[2018-02-20] MEDS: ATORVASTATIN 40 MG TAB PO (21:24)
[2018-02-20] MEDS: DOCUSATE SODIUM 10 MG/ML (10ML CUP) GTB (21:24)
[2018-02-21] MEDS: PROPOFOL 100 ML IV ×3 (05:25→20:58)
[2018-02-21 05:40] LABS: ADD MAN DIFF? NO
[2018-02-21 05:46] LABS: WHITE BLOOD COUNT 7.4 10^3/ul (4.8-10.8)
[2018-02-21 05:46] LABS: ABNORMAL IP MESSAGE 1; BASOPHILS % 0.1 % (0.0-2.0); EOSINOPHILS # 0.1 10^3/ul (0.0-0.5); EOSINOPHILS % 1.6 % (0.0-7.0); HEMATOCRIT 21.8 % (42.0-52.0); HEMOGLOBIN 7.3 g/dl (14.0-18.0); LYMPHOCYTES # 0.4 10^3/ul (0.8-2.9); LYMPHOCYTES % 4.9 % (15.0-51.0); MEAN CORPUSCULAR HEMOGLOBIN 32.6 pg (29.0-33.0); MEAN CORPUSCULAR HGB CONC 33.5 g/dl (32.0-37.0); MEAN CORPUSCULAR VOLUME 97.3 fl (82.0-101.0); MEAN PLATELET VOLUME 11.3 fl (7.4-10.4); MONOCYTE # 0.2 10^3/ul (0.3-0.9); NEUTROPHIL # 6.6 10^3/ul (1.6-7.5); NEUTROPHILS % 89.7 % (39.0-77.0); PLATELET COUNT 189 10^3/UL (140-415); POSITIVE DIFF @See below; RED BLOOD COUNT 2.24 10^6/ul (4.70-6.10); RED CELL DISTRIBUTION WIDTH 13.2 % (11.5-14.5)
[2018-02-21 06:18] LABS: ANION GAP 7 (5-13); BLOOD UREA NITROGEN 55 mg/dl (7-20); CALCIUM 7.6 mg/dl (8.4-10.2); CARBON DIOXIDE 23 mmol/L (21-31); CHLORIDE 118 mmol/L (97-110); CREATININE 1.12 mg/dl (0.61-1.24); GLUCOSE 152 mg/dl (70-220); MAGNESIUM 3.6 mg/dl (1.7-2.5); PHOSPHORUS 3.2 mg/dl (2.5-4.9); SODIUM 148 mmol/L (135-144)
[2018-02-21 06:30] LABS: POTASSIUM 2.9 mmol/L (3.5-5.1)
[2018-02-21] MEDS: POTASSIUM CHLORIDE (SR) 20 MEQ TAB PO (06:53)
[2018-02-21] MEDS: FLUTICASONE 0.05% 16 GM NAS SPRAY NASAL (09:00)
[2018-02-21] MEDS: NIFEdipine (XL) 30 MG TAB PO ×3 (09:00→20:15)
[2018-02-21] MEDS: FENTAnyl (DRIP) 1000 mcg/100mL 100 ML IV (09:07)
[2018-02-21] MEDS: DOCUSATE SODIUM 10 MG/ML (10ML CUP) GTB ×2 (09:14→20:14)
[2018-02-21] MEDS: FINASTERIDE 5 MG TAB PO (09:14)
[2018-02-21] MEDS: HYDROCHLOROTHIAZIDE 12.5 MG CAP PO (09:14)
[2018-02-21] MEDS: BACLOFEN 10 MG TAB PO ×2 (09:15→20:15)
[2018-02-21] MEDS: DONEPEZIL 5 MG TAB PO (09:15)
[2018-02-21] MEDS: ALLOPURINOL 100 MG TAB PO (09:15)
[2018-02-21] MEDS: ENOXAPARIN 30 MG/0.3 ML SYG SC (09:17)
[2018-02-21] MEDS: CEFEPIME 2GM/50 ML (PMX) 50 ML IVPB ×2 (09:32→20:13)
[2018-02-21] MEDS: PREGABALIN 50 MG CAP PO (09:32)
[2018-02-21] MEDS: FAMOTIDINE 20 MG INJ IV (09:32)
[2018-02-21] MEDS: LEVOFLOXACIN 250MG/D5W (PMX) 50 ML IVPB (10:23)
[2018-02-21] MEDS ORDERED: POTASSIUM CHLORIDE (SR) 20 MEQ TAB PO (11:00)
[2018-02-21 11:05] LABS: IMMEDIATE SPIN CROSSMATCH 1 1
[2018-02-21] MEDS: POTASSIUM CHLORIDE 20 MEQ POWDER FOR ORAL SOLN NGT (11:47)
[2018-02-21] MEDS: FAMOTIDINE 20 MG TAB PO (20:14)
[2018-02-21] MEDS: ATORVASTATIN 40 MG TAB PO (20:14)
[2018-02-21] MEDS: DOXAZOSIN 4 MG TAB PO (20:15)
[2018-02-22] MEDS: FENTAnyl (DRIP) 1000 mcg/100mL 100 ML IV (04:16)
[2018-02-22] MEDS: PROPOFOL 100 ML IV ×3 (04:48→20:58)
[2018-02-22 05:15] LABS: ADD MAN DIFF? NO
[2018-02-22 05:17] LABS: ABNORMAL IP MESSAGE 1; BASOPHILS % 0.4 % (0.0-2.0); EOSINOPHILS # 0.3 10^3/ul (0.0-0.5); EOSINOPHILS % 3.5 % (0.0-7.0); HEMATOCRIT 23.7 % (42.0-52.0); HEMOGLOBIN 7.8 g/dl (14.0-18.0); LYMPHOCYTES # 0.5 10^3/ul (0.8-2.9); LYMPHOCYTES % 7.3 % (15.0-51.0); MEAN CORPUSCULAR HEMOGLOBIN 31.8 pg (29.0-33.0); MEAN CORPUSCULAR HGB CONC 32.9 g/dl (32.0-37.0); MEAN CORPUSCULAR VOLUME 96.7 fl (82.0-101.0); MEAN PLATELET VOLUME 11.1 fl (7.4-10.4); MONOCYTE # 0.4 10^3/ul (0.3-0.9); MONOCYTES % 5.6 % (0.0-11.0); NEUTROPHIL # 5.8 10^3/ul (1.6-7.5); NUCLEATED RED BLOOD CELLS% 0.4 /100WBC (0.0-0.0); PLATELET COUNT 189 10^3/UL (140-415); POSITIVE DIFF @See below; RED BLOOD COUNT 2.45 10^6/ul (4.70-6.10); RED CELL DISTRIBUTION WIDTH 14.1 % (11.5-14.5)
[2018-02-22 05:17] LABS: WHITE BLOOD COUNT 7.2 10^3/ul (4.8-10.8)
[2018-02-22 05:44] LABS: ALANINE AMINOTRANSFERASE 31 IU/L (13-69); ALBUMIN 2.4 g/dl (3.3-4.9); ALBUMIN/GLOBULIN RATIO 0.92; ALKALINE PHOSPHATASE 90 IU/L (42-121); ANION GAP 8 (5-13); ASPARTATE AMINO TRANSFERASE 47 IU/L (15-46); BLOOD UREA NITROGEN 50 mg/dl (7-20); CALCIUM 8.1 mg/dl (8.4-10.2); CARBON DIOXIDE 24 mmol/L (21-31); CHLORIDE 119 mmol/L (97-110); CREATININE 1.14 mg/dl (0.61-1.24); GLUCOSE 153 mg/dl (70-220); SODIUM 151 mmol/L (135-144)
[2018-02-22] MEDS: NIFEdipine (XL) 30 MG TAB PO ×2 (09:00→20:59)
[2018-02-22] MEDS: FLUTICASONE 0.05% 16 GM NAS SPRAY NASAL (09:00)
[2018-02-22] MEDS: CEFEPIME 2GM/50 ML (PMX) 50 ML IVPB ×2 (09:17→20:58)
[2018-02-22] MEDS: FAMOTIDINE 20 MG TAB PO ×2 (09:19→20:58)
[2018-02-22] MEDS: ALLOPURINOL 100 MG TAB PO (09:19)
[2018-02-22] MEDS: FINASTERIDE 5 MG TAB PO (09:19)
[2018-02-22] MEDS: DOCUSATE SODIUM 10 MG/ML (10ML CUP) GTB ×2 (09:19→20:58)
[2018-02-22] MEDS: DONEPEZIL 5 MG TAB PO (09:19)
[2018-02-22] MEDS: HYDROCHLOROTHIAZIDE 12.5 MG CAP PO (09:19)
[2018-02-22] MEDS: BACLOFEN 10 MG TAB PO ×2 (09:19→20:58)
[2018-02-22] MEDS: ENOXAPARIN 30 MG/0.3 ML SYG SC (09:21)
[2018-02-22] MEDS: PREGABALIN 50 MG CAP PO (09:22)
[2018-02-22] MEDS: LEVOFLOXACIN 250MG/D5W (PMX) 50 ML IVPB (10:07)
[2018-02-22] MEDS: DEXTROSE 5% 1,000 ML IV (15:44)
[2018-02-22] MEDS: DOXAZOSIN 4 MG TAB PO (20:59)
[2018-02-22] MEDS: ATORVASTATIN 40 MG TAB PO (20:59)
[2018-02-23] MEDS: FENTAnyl (DRIP) 1000 mcg/100mL 100 ML IV ×2 (00:55→22:15)
[2018-02-23 04:57] LABS: ADD MAN DIFF? NO
[2018-02-23 05:08] LABS: WHITE BLOOD COUNT 10.3 10^3/ul (4.8-10.8)
[2018-02-23 05:08] LABS: BASOPHILS % 0.2 % (0.0-2.0); EOSINOPHILS # 0.2 10^3/ul (0.0-0.5); EOSINOPHILS % 1.7 % (0.0-7.0); HEMATOCRIT 25.1 % (42.0-52.0); HEMOGLOBIN 7.9 g/dl (14.0-18.0); LYMPHOCYTES # 0.6 10^3/ul (0.8-2.9); LYMPHOCYTES % 6.1 % (15.0-51.0); MEAN CORPUSCULAR HEMOGLOBIN 31.6 pg (29.0-33.0); MEAN CORPUSCULAR HGB CONC 31.5 g/dl (32.0-37.0); MEAN CORPUSCULAR VOLUME 100.4 fl (82.0-101.0); MEAN PLATELET VOLUME 11.1 fl (7.4-10.4); MONOCYTE # 0.4 10^3/ul (0.3-0.9); NEUTROPHIL # 8.9 10^3/ul (1.6-7.5); NEUTROPHILS % 86.7 % (39.0-77.0); NUCLEATED RED BLOOD CELLS% 0.3 /100WBC (0.0-0.0); PLATELET COUNT 171 10^3/UL (140-415); RED CELL DISTRIBUTION WIDTH 14.5 % (11.5-14.5)
[2018-02-23] MEDS: PROPOFOL 100 ML IV ×2 (05:30→12:32)
[2018-02-23 05:34] LABS: ANION GAP 6 (5-13); BLOOD UREA NITROGEN 51 mg/dl (7-20); CARBON DIOXIDE 24 mmol/L (21-31); CHLORIDE 118 mmol/L (97-110); CREATININE 1.18 mg/dl (0.61-1.24); GLUCOSE 153 mg/dl (70-220); POTASSIUM 4.7 mmol/L (3.5-5.1); SODIUM 148 mmol/L (135-144)
[2018-02-23 07:15] LABS: AADO2 Arterial 226.3 mmHg (7.0-24.0); Allen Test ACCEPTAB; Arterial Base Excess -2.4 mmol/L (-3.0-3); Arterial Blood Gas Oxygen Sat 93.8 mmHG (95.0-100.0); Arterial COHb 0.3 % (0.0-3.0); Arterial Fraction of Oxyhgb 93.1 % (93.0-99.0); Arterial MetHb 0.4 % (0.0-1.5); MODE VENT - AC; Site Right Radial
[2018-02-23] MEDS: DONEPEZIL 5 MG TAB PO (08:48)
[2018-02-23] MEDS: CEFEPIME 2GM/50 ML (PMX) 50 ML IVPB ×2 (08:48→20:48)
[2018-02-23] MEDS: FAMOTIDINE 20 MG TAB PO ×2 (08:49→20:49)
[2018-02-23] MEDS: BACLOFEN 10 MG TAB PO ×2 (08:49→20:49)
[2018-02-23] MEDS: HYDROCHLOROTHIAZIDE 12.5 MG CAP PO (08:49)
[2018-02-23] MEDS: ALLOPURINOL 100 MG TAB PO (08:49)
[2018-02-23] MEDS: FINASTERIDE 5 MG TAB PO (08:49)
[2018-02-23] MEDS: PREGABALIN 50 MG CAP PO (08:49)
[2018-02-23] MEDS: ENOXAPARIN 30 MG/0.3 ML SYG SC (09:00)
[2018-02-23] MEDS ORDERED: VANCOMYCIN IV PER PHARMACY XX (09:00)
[2018-02-23] MEDS: NIFEdipine (XL) 30 MG TAB PO (09:00)
[2018-02-23] MEDS: DOCUSATE SODIUM 10 MG/ML (10ML CUP) GTB ×2 (09:26→20:48)
[2018-02-23] MEDS: VANCOMYCIN 1.25 GM in SOD CHLORIDE 0.9% 250 ML IVPB (10:17)
[2018-02-23] MEDS: LEVOFLOXACIN 250MG/D5W (PMX) 50 ML IVPB (10:52)
[2018-02-23] MEDS: FLUTICASONE 0.05% 16 GM NAS SPRAY NASAL (12:59)
[2018-02-23] MEDS: NIFEdipine 10 MG CAP NGT ×2 (15:30→20:44)
[2018-02-23] MEDS: DOXAZOSIN 4 MG TAB PO (20:44)
[2018-02-23] MEDS: ATORVASTATIN 40 MG TAB PO (20:49)
[2018-02-24] MEDS: PROPOFOL 100 ML IV ×2 (00:50→14:07)
[2018-02-24 05:08] LABS: ABNORMAL IP MESSAGE 1; ADD MAN DIFF? NO; BASOPHILS % 0.2 % (0.0-2.0); EOSINOPHILS # 0.1 10^3/ul (0.0-0.5); EOSINOPHILS % 0.9 % (0.0-7.0); HEMATOCRIT 24.1 % (42.0-52.0); HEMOGLOBIN 7.7 g/dl (14.0-18.0); LYMPHOCYTES # 0.4 10^3/ul (0.8-2.9); LYMPHOCYTES % 3.7 % (15.0-51.0); MEAN CORPUSCULAR HEMOGLOBIN 32.1 pg (29.0-33.0); MEAN CORPUSCULAR VOLUME 100.4 fl (82.0-101.0); MEAN PLATELET VOLUME 11.5 fl (7.4-10.4); MONOCYTE # 0.5 10^3/ul (0.3-0.9); MONOCYTES % 4.3 % (0.0-11.0); NEUTROPHIL # 9.4 10^3/ul (1.6-7.5); NEUTROPHILS % 86.8 % (39.0-77.0); NUCLEATED RED BLOOD CELLS% 0.3 /100WBC (0.0-0.0); PLATELET COUNT 158 10^3/UL (140-415); POSITIVE DIFF @See below; RED CELL DISTRIBUTION WIDTH 14.6 % (11.5-14.5)
[2018-02-24 05:08] LABS: WHITE BLOOD COUNT 10.8 10^3/ul (4.8-10.8)
[2018-02-24 05:39] LABS: ALANINE AMINOTRANSFERASE 52 IU/L (13-69); ALBUMIN/GLOBULIN RATIO 0.83; ALKALINE PHOSPHATASE 109 IU/L (42-121); ANION GAP 5 (5-13); ASPARTATE AMINO TRANSFERASE 102 IU/L (15-46); BILIRUBIN,INDIRECT 0.1 mg/dl (0-1.1); BILIRUBIN,TOTAL 0.1 mg/dl (0.2-1.3); BLOOD UREA NITROGEN 64 mg/dl (7-20); CALCIUM 7.9 mg/dl (8.4-10.2); CARBON DIOXIDE 22 mmol/L (21-31); CHLORIDE 117 mmol/L (97-110); GLUCOSE 160 mg/dl (70-220); POTASSIUM 5.5 mmol/L (3.5-5.1); SODIUM 144 mmol/L (135-144); TOTAL PROTEIN 4.4 g/dl (6.1-8.1)
[2018-02-24 07:13] LABS: AADO2 Arterial 310.3 mmHg (7.0-24.0); Allen Test ACCEPTAB; Arterial Base Excess -2.6 mmol/L (-3.0-3); Arterial Blood Gas Oxygen Sat 98.2 mmHG (95.0-100.0); Arterial COHb 0.3 % (0.0-3.0); Arterial Fraction of Oxyhgb 97.6 % (93.0-99.0); Arterial HCO3 23.1 mmol/L (22.0-26.0); Arterial MetHb 0.3 % (0.0-1.5); Arterial pCO2 44.4 mmhg (35-45); MODE VENT - AC; Site Right Radial
[2018-02-24] MEDS: FLUTICASONE 0.05% 16 GM NAS SPRAY NASAL (08:51)
[2018-02-24] MEDS: FINASTERIDE 5 MG TAB PO (08:51)
[2018-02-24] MEDS: CEFEPIME 2GM/50 ML (PMX) 50 ML IVPB ×2 (08:51→20:28)
[2018-02-24] MEDS: DOCUSATE SODIUM 10 MG/ML (10ML CUP) GTB ×2 (08:51→20:28)
[2018-02-24] MEDS: BACLOFEN 10 MG TAB PO ×2 (08:53→20:29)
[2018-02-24] MEDS: NIFEdipine 10 MG CAP NGT ×3 (08:53→20:28)
[2018-02-24] MEDS: ALLOPURINOL 100 MG TAB PO (08:53)
[2018-02-24] MEDS: DONEPEZIL 5 MG TAB PO (08:53)
[2018-02-24] MEDS: PREGABALIN 50 MG CAP PO (08:54)
[2018-02-24] MEDS: FAMOTIDINE 20 MG TAB PO ×2 (08:55→20:29)
[2018-02-24] MEDS: BALSAM PERU/CASTOR OIL 60 GM TUBE TOP ×3 (08:55→20:29)
[2018-02-24] MEDS: ENOXAPARIN 30 MG/0.3 ML SYG SC (08:58)
[2018-02-24] MEDS: LEVOFLOXACIN 250MG/D5W (PMX) 50 ML IVPB (10:00)
[2018-02-24] MEDS: NA POLYST SULFON 15 GM/60 ML BTL NGT (11:22)
[2018-02-24] MEDS: VANCOMYCIN 1 GM 250 ML IVPB (12:32)
[2018-02-24] MEDS: FENTAnyl (DRIP) 1000 mcg/100mL 100 ML IV (19:38)
[2018-02-24] MEDS: DOXAZOSIN 4 MG TAB PO (20:29)
[2018-02-24] MEDS: ATORVASTATIN 40 MG TAB PO (20:29)
[2018-02-25] MEDS: PROPOFOL 100 ML IV ×3 (01:59→23:11)
[2018-02-25 05:56] LABS: CREATININE 1.64 mg/dl (0.61-1.24)
[2018-02-25 05:56] LABS: BLOOD UREA NITROGEN 73 mg/dl (7-20)
[2018-02-25 07:58] LABS: ADD MAN DIFF? NO
[2018-02-25 08:07] LABS: WHITE BLOOD COUNT 9.9 10^3/ul (4.8-10.8)
[2018-02-25 08:07] LABS: ABNORMAL IP MESSAGE 1; BASOPHILS % 0.1 % (0.0-2.0); EOSINOPHILS # 0.1 10^3/ul (0.0-0.5); EOSINOPHILS % 1.4 % (0.0-7.0); HEMATOCRIT 24.7 % (42.0-52.0); HEMOGLOBIN 7.8 g/dl (14.0-18.0); LYMPHOCYTES # 0.5 10^3/ul (0.8-2.9); LYMPHOCYTES % 4.6 % (15.0-51.0); MEAN CORPUSCULAR HEMOGLOBIN 31.6 pg (29.0-33.0); MEAN CORPUSCULAR HGB CONC 31.6 g/dl (32.0-37.0); MEAN PLATELET VOLUME 11.8 fl (7.4-10.4); MONOCYTE # 0.4 10^3/ul (0.3-0.9); MONOCYTES % 3.9 % (0.0-11.0); NEUTROPHIL # 8.5 10^3/ul (1.6-7.5); NEUTROPHILS % 86.2 % (39.0-77.0); PLATELET COUNT 167 10^3/UL (140-415); POSITIVE DIFF @See below; RED BLOOD COUNT 2.47 10^6/ul (4.70-6.10); RED CELL DISTRIBUTION WIDTH 14.5 % (11.5-14.5)
[2018-02-25] MEDS: NIFEdipine 10 MG CAP NGT ×3 (08:10→20:20)
[2018-02-25] MEDS: DOCUSATE SODIUM 10 MG/ML (10ML CUP) GTB ×2 (08:11→20:20)
[2018-02-25] MEDS: CEFEPIME 2GM/50 ML (PMX) 50 ML IVPB ×2 (08:11→20:19)
[2018-02-25] MEDS: FLUTICASONE 0.05% 16 GM NAS SPRAY NASAL (08:12)
[2018-02-25] MEDS: PREGABALIN 50 MG CAP PO (08:12)
[2018-02-25] MEDS: ALLOPURINOL 100 MG TAB PO (08:13)
[2018-02-25] MEDS: FINASTERIDE 5 MG TAB PO (08:13)
[2018-02-25] MEDS: BACLOFEN 10 MG TAB PO ×2 (08:13→20:20)
[2018-02-25] MEDS: FAMOTIDINE 20 MG TAB PO ×2 (08:13→20:20)
[2018-02-25] MEDS: DONEPEZIL 5 MG TAB PO (08:13)
[2018-02-25] MEDS: BALSAM PERU/CASTOR OIL 60 GM TUBE TOP ×2 (08:14→20:20)
[2018-02-25] MEDS: ENOXAPARIN 30 MG/0.3 ML SYG SC (08:15)
[2018-02-25 08:29] LABS: ANION GAP 6 (5-13); BLOOD UREA NITROGEN 72 mg/dl (7-20); CALCIUM 8.4 mg/dl (8.4-10.2); CARBON DIOXIDE 23 mmol/L (21-31); CHLORIDE 116 mmol/L (97-110); CREATININE 1.64 mg/dl (0.61-1.24); GLUCOSE 167 mg/dl (70-220); POTASSIUM 4.8 mmol/L (3.5-5.1); SODIUM 145 mmol/L (135-144)
[2018-02-25] MEDS: LEVOFLOXACIN 250MG/D5W (PMX) 50 ML IVPB (09:06)
[2018-02-25] MEDS: VANCOMYCIN 1 GM 250 ML IVPB (11:00)
[2018-02-25] MEDS: FUROSEMIDE 40 MG INJ IV (12:18)
[2018-02-25] MEDS: FENTAnyl (DRIP) 1000 mcg/100mL 100 ML IV (14:14)
[2018-02-25] MEDS: ATORVASTATIN 40 MG TAB PO (20:19)
[2018-02-25] MEDS: DOXAZOSIN 4 MG TAB PO (23:35)
[2018-02-26] MEDS: FENTAnyl (DRIP) 1000 mcg/100mL 100 ML IV (04:53)
[2018-02-26] MEDS: FUROSEMIDE 40 MG INJ IV (05:32)
[2018-02-26 05:56] LABS: ANION GAP 11 (5-13); BLOOD UREA NITROGEN 92 mg/dl (7-20); CALCIUM 8.5 mg/dl (8.4-10.2); CARBON DIOXIDE 24 mmol/L (21-31); CHLORIDE 112 mmol/L (97-110); CREATININE 2.43 mg/dl (0.61-1.24); GLUCOSE 155 mg/dl (70-220); MAGNESIUM 3.1 mg/dl (1.7-2.5); POTASSIUM 4.4 mmol/L (3.5-5.1); SODIUM 147 mmol/L (135-144)
[2018-02-26] MEDS: FAMOTIDINE 20 MG TAB PO ×2 (08:47→20:32)
[2018-02-26] MEDS: DONEPEZIL 5 MG TAB PO (08:47)
[2018-02-26] MEDS: DOCUSATE SODIUM 10 MG/ML (10ML CUP) GTB ×2 (08:47→20:31)
[2018-02-26] MEDS: ALLOPURINOL 100 MG TAB PO (08:48)
[2018-02-26] MEDS: FINASTERIDE 5 MG TAB PO (08:48)
[2018-02-26] MEDS: PREGABALIN 50 MG CAP PO (08:48)
[2018-02-26] MEDS: BACLOFEN 10 MG TAB PO ×2 (08:48→20:32)
[2018-02-26] MEDS: CEFEPIME 2GM/50 ML (PMX) 50 ML IVPB ×2 (08:49→20:31)
[2018-02-26] MEDS: NIFEdipine 10 MG CAP NGT ×3 (08:49→20:32)
[2018-02-26] MEDS: ENOXAPARIN 30 MG/0.3 ML SYG SC (08:50)
[2018-02-26] MEDS: BALSAM PERU/CASTOR OIL 60 GM TUBE TOP ×2 (08:51→20:32)
[2018-02-26] MEDS: FLUTICASONE 0.05% 16 GM NAS SPRAY NASAL (08:51)
[2018-02-26] MEDS: LEVOFLOXACIN 250MG/D5W (PMX) 50 ML IVPB (09:55)
[2018-02-26 09:56] LABS: ADD MAN DIFF? NO
[2018-02-26] MEDS: PROPOFOL 100 ML IV (09:56)
[2018-02-26 10:01] LABS: ABNORMAL IP MESSAGE 1; BASOPHILS % 0.3 % (0.0-2.0); EOSINOPHILS # 0.2 10^3/ul (0.0-0.5); EOSINOPHILS % 2.5 % (0.0-7.0); HEMATOCRIT 25.2 % (42.0-52.0); HEMOGLOBIN 8.1 g/dl (14.0-18.0); LYMPHOCYTES # 0.7 10^3/ul (0.8-2.9); LYMPHOCYTES % 7.4 % (15.0-51.0); MEAN CORPUSCULAR HEMOGLOBIN 31.9 pg (29.0-33.0); MEAN CORPUSCULAR HGB CONC 32.1 g/dl (32.0-37.0); MEAN CORPUSCULAR VOLUME 99.2 fl (82.0-101.0); MEAN PLATELET VOLUME 12.1 fl (7.4-10.4); MONOCYTE # 0.6 10^3/ul (0.3-0.9); MONOCYTES % 5.8 % (0.0-11.0); NEUTROPHIL # 7.4 10^3/ul (1.6-7.5); NEUTROPHILS % 78.5 % (39.0-77.0); NUCLEATED RED BLOOD CELLS% 0.3 /100WBC (0.0-0.0); PLATELET COUNT 148 10^3/UL (140-415); POSITIVE DIFF @See below; RED BLOOD COUNT 2.54 10^6/ul (4.70-6.10); RED CELL DISTRIBUTION WIDTH 14.4 % (11.5-14.5)
[2018-02-26 10:01] LABS: WHITE BLOOD COUNT 9.4 10^3/ul (4.8-10.8)
[2018-02-26 10:49] LABS: VANCOMYCIN,TROUGH 22.4 ug/ml (10.0-20.0)
[2018-02-26] MEDS ORDERED: GLUCOSE GEL 15 GRAM TUBE BUCCAL (14:30)
[2018-02-26] MEDS ORDERED: DEXTROSE 50% 50 ML SYRINGE IV ×2 (14:30)
[2018-02-26] MEDS ORDERED: GLUCOSE GEL 15 GRAM TUBE PO ×2 (14:30)
[2018-02-26] MEDS ORDERED: GLUCAGON 1 MG INJ IM (14:30)
[2018-02-26] MEDS: INSULIN ASPART [NOVOLOG] 3 ML PEN SC ×2 (16:41→20:43)
[2018-02-26] MEDS ORDERED: FUROSEMIDE 20 MG INJ IV (18:00)
[2018-02-26] MEDS: ATORVASTATIN 40 MG TAB PO (20:31)
[2018-02-26] MEDS: DOXAZOSIN 4 MG TAB PO (20:32)
[2018-02-27] MEDS: INSULIN ASPART [NOVOLOG] 3 ML PEN SC ×6 (01:15→21:00)
[2018-02-27] MEDS: PROPOFOL 100 ML IV ×2 (02:15→16:22)
[2018-02-27 04:57] LABS: ADD MAN DIFF? NO
[2018-02-27 05:00] LABS: ABNORMAL IP MESSAGE 1; BASOPHILS % 0.2 % (0.0-2.0); EOSINOPHILS # 0.2 10^3/ul (0.0-0.5); EOSINOPHILS % 2.3 % (0.0-7.0); HEMATOCRIT 22.9 % (42.0-52.0); HEMOGLOBIN 7.3 g/dl (14.0-18.0); LYMPHOCYTES # 0.4 10^3/ul (0.8-2.9); LYMPHOCYTES % 3.6 % (15.0-51.0); MEAN CORPUSCULAR HEMOGLOBIN 31.6 pg (29.0-33.0); MEAN CORPUSCULAR HGB CONC 31.9 g/dl (32.0-37.0); MEAN CORPUSCULAR VOLUME 99.1 fl (82.0-101.0); MEAN PLATELET VOLUME 12.6 fl (7.4-10.4); MONOCYTE # 0.6 10^3/ul (0.3-0.9); MONOCYTES % 5.8 % (0.0-11.0); NEUTROPHIL # 8.5 10^3/ul (1.6-7.5); NEUTROPHILS % 83.7 % (39.0-77.0); NUCLEATED RED BLOOD CELLS% 0.2 /100WBC (0.0-0.0); PLATELET COUNT 135 10^3/UL (140-415); POSITIVE DIFF @See below; RED BLOOD COUNT 2.31 10^6/ul (4.70-6.10); RED CELL DISTRIBUTION WIDTH 14.2 % (11.5-14.5)
[2018-02-27 05:00] LABS: WHITE BLOOD COUNT 10.1 10^3/ul (4.8-10.8)
[2018-02-27 05:32] LABS: ANION GAP 8 (5-13); BLOOD UREA NITROGEN 111 mg/dl (7-20); CALCIUM 8.7 mg/dl (8.4-10.2); CARBON DIOXIDE 22 mmol/L (21-31); CHLORIDE 113 mmol/L (97-110); CREATININE 3.42 mg/dl (0.61-1.24); GLUCOSE 161 mg/dl (70-220); POTASSIUM 4.5 mmol/L (3.5-5.1); SODIUM 143 mmol/L (135-144)
[2018-02-27 05:33] LABS: VANCOMYCIN,RANDOM 19.1 ug/ml
[2018-02-27 05:55] LABS: AADO2 Arterial 152.6 mmHg (7.0-24.0); Allen Test ACCEPTAB; Arterial Base Excess -4.4 mmol/L (-3.0-3); Arterial Blood Gas Oxygen Sat 95.7 mmHG (95.0-100.0); Arterial COHb 0.1 % (0.0-3.0); Arterial Fraction of Oxyhgb 95.1 % (93.0-99.0); Arterial HCO3 20.7 mmol/L (22.0-26.0); Arterial MetHb 0.5 % (0.0-1.5); Arterial pCO2 37.4 mmhg (35-45); MODE VENT - AC; Site Right Radial
[2018-02-27 08:03] LABS: CREATININE,URINE RANDOM 29.47 mg/dl (20-370)
[2018-02-27] MEDS: FLUTICASONE 0.05% 16 GM NAS SPRAY NASAL (09:00)
[2018-02-27] MEDS: DOCUSATE SODIUM 10 MG/ML (10ML CUP) GTB ×2 (09:31→21:00)
[2018-02-27] MEDS: ALLOPURINOL 100 MG TAB PO (09:31)
[2018-02-27] MEDS: FAMOTIDINE 20 MG TAB PO (09:31)
[2018-02-27] MEDS: NIFEdipine 10 MG CAP NGT ×3 (09:31→21:37)
[2018-02-27] MEDS: FINASTERIDE 5 MG TAB PO (09:31)
[2018-02-27] MEDS: BACLOFEN 10 MG TAB PO ×2 (09:32→21:36)
[2018-02-27] MEDS: ENOXAPARIN 30 MG/0.3 ML SYG SC (09:33)
[2018-02-27] MEDS: BALSAM PERU/CASTOR OIL 60 GM TUBE TOP ×2 (09:34→21:43)
[2018-02-27] MEDS: DONEPEZIL 5 MG TAB PO (09:42)
[2018-02-27] MEDS: PREGABALIN 50 MG CAP PO (09:42)
[2018-02-27] MEDS: CEFEPIME 2GM/50 ML (PMX) 50 ML IVPB ×2 (09:42→21:37)
[2018-02-27] MEDS: ALBUMIN HUMAN 25% 100 ML IV (09:43)
[2018-02-27] MEDS: SOD CHLORIDE 0.9% 1,000 ML IV (09:44)
[2018-02-27] MEDS: LEVOFLOXACIN 250MG/D5W (PMX) 50 ML IVPB (12:10)
[2018-02-27 12:26] LABS: HEMATOCRIT 22.9 % (42.0-52.0); HEMOGLOBIN 7.5 g/dl (14.0-18.0)
[2018-02-27] MEDS: BUMETANIDE 12 MG in DEXTROSE 5% 72 ML IV (13:30)
[2018-02-27] MEDS: ATORVASTATIN 40 MG TAB PO (21:36)
[2018-02-27] MEDS: DOXAZOSIN 4 MG TAB PO (21:36)
[2018-02-28] MEDS: INSULIN ASPART [NOVOLOG] 3 ML PEN SC ×6 (01:00→20:26)
[2018-02-28] MEDS: PROPOFOL 100 ML IV ×2 (04:21→13:53)
[2018-02-28 04:51] LABS: ADD MAN DIFF? NO
[2018-02-28 04:55] LABS: ABNORMAL IP MESSAGE 1; BASOPHILS % 0.1 % (0.0-2.0); EOSINOPHILS # 0.2 10^3/ul (0.0-0.5); EOSINOPHILS % 2.1 % (0.0-7.0); HEMATOCRIT 22.1 % (42.0-52.0); HEMOGLOBIN 7.2 g/dl (14.0-18.0); LYMPHOCYTES # 0.4 10^3/ul (0.8-2.9); LYMPHOCYTES % 3.3 % (15.0-51.0); MEAN CORPUSCULAR HGB CONC 32.6 g/dl (32.0-37.0); MEAN CORPUSCULAR VOLUME 98.2 fl (82.0-101.0); MEAN PLATELET VOLUME 12.7 fl (7.4-10.4); MONOCYTE # 0.5 10^3/ul (0.3-0.9); MONOCYTES % 4.7 % (0.0-11.0); NEUTROPHIL # 9.5 10^3/ul (1.6-7.5); NEUTROPHILS % 86.1 % (39.0-77.0); PLATELET COUNT 127 10^3/UL (140-415); POSITIVE DIFF @See below; RED BLOOD COUNT 2.25 10^6/ul (4.70-6.10); RED CELL DISTRIBUTION WIDTH 14.5 % (11.5-14.5)
[2018-02-28 04:55] LABS: WHITE BLOOD COUNT 11.1 10^3/ul (4.8-10.8)
[2018-02-28 05:01] LABS: AADO2 Arterial 156.9 mmHg (7.0-24.0); Allen Test ACCEPTAB; Arterial Base Excess -7.5 mmol/L (-3.0-3); Arterial Blood Gas Oxygen Sat 94.1 mmHG (95.0-100.0); Arterial COHb 0.7 % (0.0-3.0); Arterial Fraction of Oxyhgb 93.1 % (93.0-99.0); Arterial HCO3 18.9 mmol/L (22.0-26.0); Arterial MetHb 0.4 % (0.0-1.5); MODE VENT - AC; Site Right Radial
[2018-02-28 05:17] LABS: URIC ACID 6.3 mg/dl (3.1-7.9)
[2018-02-28 05:22] LABS: ANION GAP 10 (5-13); CALCIUM 8.8 mg/dl (8.4-10.2); CARBON DIOXIDE 20 mmol/L (21-31); CHLORIDE 108 mmol/L (97-110); CREATININE 4.22 mg/dl (0.61-1.24); GLUCOSE 129 mg/dl (70-220); SODIUM 138 mmol/L (135-144)
[2018-02-28 05:24] LABS: B-TYPE NATRIURETIC PEPTIDE 23300 PG/ML (0-450)
[2018-02-28 05:31] LABS: BLOOD UREA NITROGEN 131 mg/dl (7-20)
[2018-02-28] MEDS ORDERED: SODIUM CHLORIDE 0.9% 1L BAG IV (07:30)
[2018-02-28] MEDS ORDERED: MANNITOL 25% 50 ML IV (07:30)
[2018-02-28] MEDS ORDERED: ALBUMIN HUMAN 25% 50 ML IV (07:30)
[2018-02-28] MEDS: BALSAM PERU/CASTOR OIL 60 GM TUBE TOP ×2 (08:52→20:26)
[2018-02-28] MEDS: DOCUSATE SODIUM 10 MG/ML (10ML CUP) GTB ×2 (08:52→20:25)
[2018-02-28] MEDS: FINASTERIDE 5 MG TAB PO (08:53)
[2018-02-28] MEDS: DONEPEZIL 5 MG TAB PO (08:53)
[2018-02-28] MEDS: ENOXAPARIN 30 MG/0.3 ML SYG SC (08:53)
[2018-02-28] MEDS: ALLOPURINOL 100 MG TAB PO (08:53)
[2018-02-28] MEDS: PREGABALIN 50 MG CAP PO (08:53)
[2018-02-28] MEDS: BACLOFEN 10 MG TAB PO ×2 (08:53→20:26)
[2018-02-28] MEDS: FAMOTIDINE 20 MG INJ IV (08:53)
[2018-02-28] MEDS: FLUTICASONE 0.05% 16 GM NAS SPRAY NASAL (08:54)
[2018-02-28] MEDS: NIFEdipine 10 MG CAP NGT ×3 (08:54→20:26)
[2018-02-28 09:26] LABS: HAAIG REFLEX REFLEX FILED
[2018-02-28 09:48] LABS: INR 1.27; PT RATIO 1.3
[2018-02-28] MEDS: CEFEPIME 2GM/50 ML (PMX) 50 ML IVPB (10:00)
[2018-02-28 10:19] LABS: HEPATITIS B SURFACE ANTIGEN NEGATIVE (NEGATIVE)
[2018-02-28 10:36] LABS: HEPATITIS B CORE ANTIBODY REACTIVE (NEGATIVE); HEPATITIS C VIRAL ANTIBODY NEGATIVE (NEGATIVE); HIV 1&2 ANTIBODY NEGATIVE (NEGATIVE)
[2018-02-28] MEDS: LEVOFLOXACIN 250MG/D5W (PMX) 50 ML IVPB ×2 (11:00→15:35)
[2018-02-28] MEDS: EVAC CONTAINER IV (13:48)
[2018-02-28] MEDS: MANNITOL 20% IV (13:48)
[2018-02-28] MEDS: HEPARIN 1000 UNITS/ML 10 ML INJ CATHETER (15:30)
[2018-02-28] MEDS: CEFEPIME 1GM/50 ML IVPB (20:23)
[2018-02-28] MEDS: ATORVASTATIN 40 MG TAB PO (20:25)
[2018-02-28] MEDS: DOXAZOSIN 4 MG TAB PO (20:26)
[2018-03-01] MEDS: INSULIN ASPART [NOVOLOG] 3 ML PEN SC ×6 (01:00→21:29)
[2018-03-01 04:54] LABS: ADD MAN DIFF? NO
[2018-03-01 04:57] LABS: ABNORMAL IP MESSAGE 1; BASOPHILS % 0.1 % (0.0-2.0); EOSINOPHILS # 0.2 10^3/ul (0.0-0.5); EOSINOPHILS % 1.2 % (0.0-7.0); HEMATOCRIT 20.7 % (42.0-52.0); LYMPHOCYTES # 0.4 10^3/ul (0.8-2.9); LYMPHOCYTES % 3.2 % (15.0-51.0); MEAN CORPUSCULAR HGB CONC 33.8 g/dl (32.0-37.0); MEAN CORPUSCULAR VOLUME 94.5 fl (82.0-101.0); MEAN PLATELET VOLUME 13.2 fl (7.4-10.4); MONOCYTE # 0.6 10^3/ul (0.3-0.9); NEUTROPHIL # 10.5 10^3/ul (1.6-7.5); NEUTROPHILS % 87.3 % (39.0-77.0); PLATELET COUNT 137 10^3/UL (140-415); POSITIVE DIFF @See below; RED BLOOD COUNT 2.19 10^6/ul (4.70-6.10); RED CELL DISTRIBUTION WIDTH 14.2 % (11.5-14.5)
[2018-03-01 05:18] LABS: INR 1.34; PROTIME 16.7 Sec (11.9-14.9); PT RATIO 1.3
[2018-03-01 05:19] LABS: PARTIAL THROMBOPLASTIN TIME 38.5 Sec (23.0-35.0)
[2018-03-01 05:21] LABS: ALANINE AMINOTRANSFERASE 38 IU/L (13-69); ALBUMIN 2.1 g/dl (3.3-4.9); ALBUMIN/GLOBULIN RATIO 0.87; ALKALINE PHOSPHATASE 124 IU/L (42-121); ANION GAP 10 (5-13); ASPARTATE AMINO TRANSFERASE 38 IU/L (15-46); BLOOD UREA NITROGEN 107 mg/dl (7-20); CALCIUM 8.2 mg/dl (8.4-10.2); CARBON DIOXIDE 22 mmol/L (21-31); CHLORIDE 105 mmol/L (97-110); CREATININE 3.87 mg/dl (0.61-1.24); GLUCOSE 126 mg/dl (70-220); POTASSIUM 4.7 mmol/L (3.5-5.1); SODIUM 137 mmol/L (135-144); TOTAL PROTEIN 4.5 g/dl (6.1-8.1)
[2018-03-01] MEDS: PROPOFOL 100 ML IV ×2 (07:23→21:42)
[2018-03-01] MEDS: FLUTICASONE 0.05% 16 GM NAS SPRAY NASAL (09:00)
[2018-03-01] MEDS: PREGABALIN 50 MG CAP PO (09:15)
[2018-03-01] MEDS: DONEPEZIL 5 MG TAB PO (09:15)
[2018-03-01] MEDS: FINASTERIDE 5 MG TAB PO (09:15)
[2018-03-01] MEDS: FAMOTIDINE 20 MG INJ IV (09:15)
[2018-03-01] MEDS: BACLOFEN 10 MG TAB PO ×2 (09:15→21:22)
[2018-03-01] MEDS: ALLOPURINOL 100 MG TAB PO (09:15)
[2018-03-01] MEDS: DOCUSATE SODIUM 10 MG/ML (10ML CUP) GTB ×2 (09:15→21:21)
[2018-03-01] MEDS: NIFEdipine 10 MG CAP NGT ×3 (09:16→21:23)
[2018-03-01] MEDS: ENOXAPARIN 30 MG/0.3 ML SYG SC (09:25)
[2018-03-01] MEDS: BALSAM PERU/CASTOR OIL 60 GM TUBE TOP ×2 (09:26→21:23)
[2018-03-01] MEDS: HEPARIN 1000 UNITS/ML 10 ML INJ CATHETER (12:27)
[2018-03-01] MEDS: CEFEPIME 1GM/50 ML IVPB (21:21)
[2018-03-01] MEDS: DOXAZOSIN 4 MG TAB PO (21:22)
[2018-03-01] MEDS: ATORVASTATIN 40 MG TAB PO (21:22)
[2018-03-02] MEDS: INSULIN ASPART [NOVOLOG] 3 ML PEN SC ×6 (01:13→21:30)
[2018-03-02 04:37] LABS: ADD MAN DIFF? NO
[2018-03-02 04:40] LABS: ABNORMAL IP MESSAGE 1; BASOPHILS % 0.1 % (0.0-2.0); EOSINOPHILS # 0.2 10^3/ul (0.0-0.5); EOSINOPHILS % 1.5 % (0.0-7.0); HEMATOCRIT 21.1 % (42.0-52.0); HEMOGLOBIN 7.2 g/dl (14.0-18.0); LYMPHOCYTES # 0.5 10^3/ul (0.8-2.9); LYMPHOCYTES % 4.5 % (15.0-51.0); MEAN CORPUSCULAR HEMOGLOBIN 31.9 pg (29.0-33.0); MEAN CORPUSCULAR HGB CONC 34.1 g/dl (32.0-37.0); MEAN CORPUSCULAR VOLUME 93.4 fl (82.0-101.0); MEAN PLATELET VOLUME 12.6 fl (7.4-10.4); MONOCYTE # 0.6 10^3/ul (0.3-0.9); MONOCYTES % 5.4 % (0.0-11.0); NEUTROPHIL # 9.8 10^3/ul (1.6-7.5); NEUTROPHILS % 86.5 % (39.0-77.0); PLATELET COUNT 147 10^3/UL (140-415); POSITIVE DIFF @See below; RED BLOOD COUNT 2.26 10^6/ul (4.70-6.10)
[2018-03-02 04:40] LABS: WHITE BLOOD COUNT 11.3 10^3/ul (4.8-10.8)
[2018-03-02 04:59] LABS: ANION GAP 13 (5-13); BLOOD UREA NITROGEN 85 mg/dl (7-20); CALCIUM 8.6 mg/dl (8.4-10.2); CARBON DIOXIDE 26 mmol/L (21-31); CHLORIDE 99 mmol/L (97-110); GLUCOSE 125 mg/dl (70-220); MAGNESIUM 2.9 mg/dl (1.7-2.5); PHOSPHORUS 6.2 mg/dl (2.5-4.9); POTASSIUM 4.2 mmol/L (3.5-5.1); SODIUM 138 mmol/L (135-144)
[2018-03-02] MEDS: FINASTERIDE 5 MG TAB PO (08:55)
[2018-03-02] MEDS: FAMOTIDINE 20 MG INJ IV (08:55)
[2018-03-02] MEDS: DOCUSATE SODIUM 10 MG/ML (10ML CUP) GTB ×2 (08:55→21:16)
[2018-03-02] MEDS: ALLOPURINOL 100 MG TAB PO (08:55)
[2018-03-02] MEDS: DONEPEZIL 5 MG TAB PO (08:55)
[2018-03-02] MEDS: PREGABALIN 50 MG CAP PO (08:55)
[2018-03-02] MEDS: BACLOFEN 10 MG TAB PO ×2 (08:55→21:17)
[2018-03-02] MEDS: NIFEdipine 10 MG CAP NGT ×3 (08:55→21:17)
[2018-03-02] MEDS: BALSAM PERU/CASTOR OIL 60 GM TUBE TOP ×2 (08:56→21:18)
[2018-03-02] MEDS: ENOXAPARIN 30 MG/0.3 ML SYG SC (08:57)
[2018-03-02] MEDS: FLUTICASONE 0.05% 16 GM NAS SPRAY NASAL (09:00)
[2018-03-02] MEDS ORDERED: SOD CHLORIDE 0.9% 250 ML IV* (14:42)
[2018-03-02] MEDS: SOD CHLORIDE 0.9% 250 ML IV* (15:09)
[2018-03-02 17:23] LABS: IMMEDIATE SPIN CROSSMATCH 1 1
[2018-03-02] MEDS: CEFEPIME 1GM/50 ML IVPB (21:16)
[2018-03-02] MEDS: ATORVASTATIN 40 MG TAB PO (21:17)
[2018-03-02] MEDS: DOXAZOSIN 4 MG TAB PO (21:17)
[2018-03-02 21:59] LABS: ADD MAN DIFF? NO
[2018-03-02 22:03] LABS: ABNORMAL IP MESSAGE 1; BASOPHILS % 0.2 % (0.0-2.0); EOSINOPHILS # 0.1 10^3/ul (0.0-0.5); EOSINOPHILS % 0.4 % (0.0-7.0); HEMATOCRIT 26.6 % (42.0-52.0); LYMPHOCYTES # 0.4 10^3/ul (0.8-2.9); LYMPHOCYTES % 3.4 % (15.0-51.0); MEAN CORPUSCULAR HEMOGLOBIN 31.6 pg (29.0-33.0); MEAN CORPUSCULAR HGB CONC 33.8 g/dl (32.0-37.0); MEAN CORPUSCULAR VOLUME 93.3 fl (82.0-101.0); MEAN PLATELET VOLUME 13.3 fl (7.4-10.4); MONOCYTE # 0.6 10^3/ul (0.3-0.9); MONOCYTES % 4.5 % (0.0-11.0); NEUTROPHIL # 11.7 10^3/ul (1.6-7.5); PLATELET COUNT 155 10^3/UL (140-415); POSITIVE DIFF @See below; RED BLOOD COUNT 2.85 10^6/ul (4.70-6.10); RED CELL DISTRIBUTION WIDTH 14.3 % (11.5-14.5)
[2018-03-03] MEDS: INSULIN ASPART [NOVOLOG] 3 ML PEN SC ×6 (01:22→21:00)
[2018-03-03 04:59] LABS: ADD MAN DIFF? NO
[2018-03-03 05:06] LABS: WHITE BLOOD COUNT 12.7 10^3/ul (4.8-10.8)
[2018-03-03 05:06] LABS: ABNORMAL IP MESSAGE 1; BASOPHILS % 0.2 % (0.0-2.0); EOSINOPHILS # 0.1 10^3/ul (0.0-0.5); EOSINOPHILS % 0.5 % (0.0-7.0); HEMATOCRIT 25.1 % (42.0-52.0); HEMOGLOBIN 8.7 g/dl (14.0-18.0); LYMPHOCYTES # 0.4 10^3/ul (0.8-2.9); LYMPHOCYTES % 3.2 % (15.0-51.0); MEAN CORPUSCULAR HEMOGLOBIN 31.8 pg (29.0-33.0); MEAN CORPUSCULAR HGB CONC 34.7 g/dl (32.0-37.0); MEAN CORPUSCULAR VOLUME 91.6 fl (82.0-101.0); MEAN PLATELET VOLUME 13.2 fl (7.4-10.4); MONOCYTE # 0.7 10^3/ul (0.3-0.9); MONOCYTES % 5.4 % (0.0-11.0); NEUTROPHIL # 11.3 10^3/ul (1.6-7.5); NEUTROPHILS % 89.4 % (39.0-77.0); PLATELET COUNT 146 10^3/UL (140-415); POSITIVE DIFF @See below; RED BLOOD COUNT 2.74 10^6/ul (4.70-6.10); RED CELL DISTRIBUTION WIDTH 14.7 % (11.5-14.5)
[2018-03-03 05:42] LABS: ANION GAP 13 (5-13); BLOOD UREA NITROGEN 74 mg/dl (7-20); CALCIUM 8.7 mg/dl (8.4-10.2); CARBON DIOXIDE 26 mmol/L (21-31); CHLORIDE 99 mmol/L (97-110); CREATININE 3.48 mg/dl (0.61-1.24); GLUCOSE 156 mg/dl (70-220); POTASSIUM 4.2 mmol/L (3.5-5.1); SODIUM 138 mmol/L (135-144)
[2018-03-03] MEDS: ALLOPURINOL 100 MG TAB PO (08:26)
[2018-03-03] MEDS: FINASTERIDE 5 MG TAB PO (08:26)
[2018-03-03] MEDS: FAMOTIDINE 20 MG TAB PO (08:26)
[2018-03-03] MEDS: BACLOFEN 10 MG TAB PO ×2 (08:26→21:26)
[2018-03-03] MEDS: DOXAZOSIN 4 MG TAB PO (08:26)
[2018-03-03] MEDS: ENOXAPARIN 30 MG/0.3 ML SYG SC (08:27)
[2018-03-03] MEDS: DOCUSATE SODIUM 10 MG/ML (10ML CUP) GTB ×2 (08:48→21:00)
[2018-03-03] MEDS: FLUTICASONE 0.05% 16 GM NAS SPRAY NASAL (09:00)
[2018-03-03 10:34] LABS: OCCULT BLOOD STOOL NEGATIVE (NEGATIVE)
[2018-03-03] MEDS: NIFEdipine 10 MG CAP NGT ×3 (11:29→21:25)
[2018-03-03] MEDS: BALSAM PERU/CASTOR OIL 60 GM TUBE TOP ×2 (11:30→21:00)
[2018-03-03 12:03] LABS: TROPONIN-I 0.381 ng/ml (0.000-0.120)
[2018-03-03 18:51] LABS: TROPONIN-I 0.357 ng/ml (0.000-0.120)
[2018-03-03] MEDS: LORAZEPAM 1 MG TAB GTB (21:25)
[2018-03-03] MEDS: ATORVASTATIN 40 MG TAB PO (21:25)
[2018-03-03] MEDS: CEFEPIME 1GM/50 ML IVPB (21:25)
[2018-03-04] MEDS: INSULIN ASPART [NOVOLOG] 3 ML PEN SC ×6 (01:00→21:16)
[2018-03-04 01:23] LABS: TROPONIN-I 0.384 ng/ml (0.000-0.120)
[2018-03-04 05:03] LABS: ADD MAN DIFF? NO
[2018-03-04 05:07] LABS: ABNORMAL IP MESSAGE 1; BASOPHILS % 0.2 % (0.0-2.0); EOSINOPHILS # 0.2 10^3/ul (0.0-0.5); EOSINOPHILS % 1.7 % (0.0-7.0); HEMATOCRIT 24.2 % (42.0-52.0); HEMOGLOBIN 8.4 g/dl (14.0-18.0); LYMPHOCYTES # 0.6 10^3/ul (0.8-2.9); LYMPHOCYTES % 5.3 % (15.0-51.0); MEAN CORPUSCULAR HEMOGLOBIN 31.9 pg (29.0-33.0); MEAN CORPUSCULAR HGB CONC 34.7 g/dl (32.0-37.0); MEAN PLATELET VOLUME 13.6 fl (7.4-10.4); MONOCYTE # 0.8 10^3/ul (0.3-0.9); MONOCYTES % 6.5 % (0.0-11.0); NEUTROPHIL # 9.9 10^3/ul (1.6-7.5); NEUTROPHILS % 85.3 % (39.0-77.0); PLATELET COUNT 139 10^3/UL (140-415); POSITIVE DIFF @See below; RED BLOOD COUNT 2.63 10^6/ul (4.70-6.10); RED CELL DISTRIBUTION WIDTH 14.5 % (11.5-14.5)
[2018-03-04 05:07] LABS: WHITE BLOOD COUNT 11.6 10^3/ul (4.8-10.8)
[2018-03-04 05:27] LABS: AMMONIA 11 umol/l (9-30)
[2018-03-04 05:35] LABS: ANION GAP 14 (5-13); BLOOD UREA NITROGEN 107 mg/dl (7-20); CALCIUM 8.6 mg/dl (8.4-10.2); CARBON DIOXIDE 21 mmol/L (21-31); CHLORIDE 100 mmol/L (97-110); GLUCOSE 132 mg/dl (70-220); POTASSIUM 4.1 mmol/L (3.5-5.1); SODIUM 135 mmol/L (135-144)
[2018-03-04 05:44] LABS: CREATININE 3.99 mg/dl (0.61-1.24)
[2018-03-04] MEDS: DOCUSATE SODIUM 10 MG/ML (10ML CUP) GTB ×2 (08:23→21:13)
[2018-03-04] MEDS: HEPARIN 5,000 UNIT/1 ML VIAL SC ×2 (08:42→21:15)
[2018-03-04 09:05] LABS: AADO2 Arterial 90.2 mmHg (7.0-24.0); Allen Test ACCEPTAB; Arterial Base Excess -2.2 mmol/L (-3.0-3); Arterial COHb 0.3 % (0.0-3.0); Arterial Fraction of Oxyhgb 95.6 % (93.0-99.0); Arterial HCO3 20.8 mmol/L (22.0-26.0); Arterial MetHb 0.1 % (0.0-1.5); Arterial pCO2 29.2 mmhg (35-45); MODE VENT - AC; Site Right Radial
[2018-03-04] MEDS ORDERED: MANNITOL 25% 50 ML INJ IV* (10:51)
[2018-03-04] MEDS ORDERED: MANNITOL 20% IV (11:30)
[2018-03-04] MEDS: MANNITOL 20% 125 ML IV (11:30)
[2018-03-04] MEDS ORDERED: METOPROLOL 5 MG INJ IV (12:00)
[2018-03-04] MEDS: NIFEdipine 10 MG CAP NGT ×3 (13:00→21:14)
[2018-03-04] MEDS: HEPARIN 1000 UNITS/ML 10 ML INJ CATHETER (13:06)
[2018-03-04] MEDS: FINASTERIDE 5 MG TAB PO (13:50)
[2018-03-04] MEDS: BACLOFEN 10 MG TAB PO ×2 (13:51→21:14)
[2018-03-04] MEDS: FAMOTIDINE 20 MG TAB PO (13:51)
[2018-03-04] MEDS: ALLOPURINOL 100 MG TAB PO (13:51)
[2018-03-04] MEDS: BALSAM PERU/CASTOR OIL 60 GM TUBE TOP ×2 (13:52→21:17)
[2018-03-04] MEDS: DOXAZOSIN 4 MG TAB PO (21:00)
[2018-03-04] MEDS: CEFEPIME 1GM/50 ML IVPB (21:13)
[2018-03-04] MEDS: ATORVASTATIN 40 MG TAB PO (21:14)
[2018-03-05] MEDS: INSULIN ASPART [NOVOLOG] 3 ML PEN SC ×6 (01:35→20:45)
[2018-03-05 05:02] LABS: ADD MAN DIFF? NO
[2018-03-05 05:08] LABS: ABNORMAL IP MESSAGE 1; BASOPHILS % 0.3 % (0.0-2.0); EOSINOPHILS # 0.1 10^3/ul (0.0-0.5); EOSINOPHILS % 0.5 % (0.0-7.0); HEMATOCRIT 25.5 % (42.0-52.0); HEMOGLOBIN 8.5 g/dl (14.0-18.0); LYMPHOCYTES # 0.4 10^3/ul (0.8-2.9); LYMPHOCYTES % 3.3 % (15.0-51.0); MEAN CORPUSCULAR HGB CONC 33.3 g/dl (32.0-37.0); MEAN CORPUSCULAR VOLUME 93.1 fl (82.0-101.0); MEAN PLATELET VOLUME 13.2 fl (7.4-10.4); MONOCYTE # 0.8 10^3/ul (0.3-0.9); MONOCYTES % 6.7 % (0.0-11.0); NEUTROPHIL # 10.3 10^3/ul (1.6-7.5); NEUTROPHILS % 88.4 % (39.0-77.0); PLATELET COUNT 157 10^3/UL (140-415); POSITIVE DIFF @See below; RED BLOOD COUNT 2.74 10^6/ul (4.70-6.10); RED CELL DISTRIBUTION WIDTH 14.5 % (11.5-14.5)
[2018-03-05 05:08] LABS: WHITE BLOOD COUNT 11.7 10^3/ul (4.8-10.8)
[2018-03-05 05:25] LABS: INR 1.15; PROTIME 14.8 Sec (11.9-14.9); PT RATIO 1.2
[2018-03-05 05:26] LABS: PARTIAL THROMBOPLASTIN TIME 36.4 Sec (23.0-35.0)
[2018-03-05 05:35] LABS: ANION GAP 13 (5-13); BLOOD UREA NITROGEN 82 mg/dl (7-20); CALCIUM 8.4 mg/dl (8.4-10.2); CARBON DIOXIDE 27 mmol/L (21-31); CHLORIDE 98 mmol/L (97-110); GLUCOSE 121 mg/dl (70-220); POTASSIUM 4.5 mmol/L (3.5-5.1); SODIUM 138 mmol/L (135-144)
[2018-03-05 05:44] LABS: CREATININE 3.27 mg/dl (0.61-1.24)
[2018-03-05] MEDS ORDERED: SEVOFLURANE 15 MIN (07:00)
[2018-03-05] MEDS: HEPARIN 5,000 UNIT/1 ML VIAL SC ×3 (09:00→21:00)
[2018-03-05] MEDS: FINASTERIDE 5 MG TAB PO (09:44)
[2018-03-05] MEDS: NIFEdipine 10 MG CAP NGT ×3 (09:44→21:00)
[2018-03-05] MEDS: ALLOPURINOL 100 MG TAB PO (09:44)
[2018-03-05] MEDS: FAMOTIDINE 20 MG TAB PO (09:44)
[2018-03-05] MEDS: BACLOFEN 10 MG TAB PO ×2 (09:44→20:50)
[2018-03-05] MEDS: DOCUSATE SODIUM 10 MG/ML (10ML CUP) GTB ×2 (09:45→21:00)
[2018-03-05] MEDS: BALSAM PERU/CASTOR OIL 60 GM TUBE TOP ×2 (09:45→20:46)
[2018-03-05] MEDS: morphine LIQ (10 MG/5 ML) CUP PO (10:01)
[2018-03-05] MEDS ORDERED: FENTAnyl 50 MCG/ML VIAL IV (12:30)
[2018-03-05] MEDS ORDERED: FENTAnyl 50 MCG/ML VIAL (17:32)
[2018-03-05] MEDS ORDERED: LIDOCAINE 1% (MPF) 30 ML INJ (17:33)
[2018-03-05] MEDS ORDERED: MIDAZOLAM 1 MG/ML 2 ML INJ (18:07)
[2018-03-05] MEDS: ATORVASTATIN 40 MG TAB PO (20:50)
[2018-03-05] MEDS: DOXAZOSIN 4 MG TAB PO (21:00)
[2018-03-06] MEDS: INSULIN ASPART [NOVOLOG] 3 ML PEN SC ×6 (01:00→20:54)
[2018-03-06 05:09] LABS: ADD MAN DIFF? NO
[2018-03-06 05:19] LABS: WHITE BLOOD COUNT 9.9 10^3/ul (4.8-10.8)
[2018-03-06 05:19] LABS: ABNORMAL IP MESSAGE 1; BASOPHILS % 0.3 % (0.0-2.0); EOSINOPHILS # 0.2 10^3/ul (0.0-0.5); EOSINOPHILS % 1.6 % (0.0-7.0); HEMATOCRIT 24.7 % (42.0-52.0); LYMPHOCYTES # 0.3 10^3/ul (0.8-2.9); MEAN CORPUSCULAR HEMOGLOBIN 31.3 pg (29.0-33.0); MEAN CORPUSCULAR HGB CONC 32.4 g/dl (32.0-37.0); MEAN CORPUSCULAR VOLUME 96.5 fl (82.0-101.0); MEAN PLATELET VOLUME 13.3 fl (7.4-10.4); MONOCYTE # 0.6 10^3/ul (0.3-0.9); MONOCYTES % 5.9 % (0.0-11.0); NEUTROPHIL # 8.8 10^3/ul (1.6-7.5); NEUTROPHILS % 88.7 % (39.0-77.0); PLATELET COUNT 156 10^3/UL (140-415); POSITIVE DIFF @See below; RED BLOOD COUNT 2.56 10^6/ul (4.70-6.10); RED CELL DISTRIBUTION WIDTH 14.7 % (11.5-14.5)
[2018-03-06 05:43] LABS: ANION GAP 18 (5-13); BLOOD UREA NITROGEN 109 mg/dl (7-20); CALCIUM 8.1 mg/dl (8.4-10.2); CARBON DIOXIDE 21 mmol/L (21-31); CHLORIDE 99 mmol/L (97-110); GLUCOSE 92 mg/dl (70-220); SODIUM 138 mmol/L (135-144)
[2018-03-06 05:53] LABS: CREATININE 4.27 mg/dl (0.61-1.24)
[2018-03-06] MEDS: FINASTERIDE 5 MG TAB PO (08:36)
[2018-03-06] MEDS: NIFEdipine 10 MG CAP NGT ×3 (08:36→20:50)
[2018-03-06] MEDS: DOCUSATE SODIUM 10 MG/ML (10ML CUP) GTB ×2 (08:36→20:50)
[2018-03-06] MEDS: BACLOFEN 10 MG TAB PO ×2 (08:37→20:51)
[2018-03-06] MEDS: FAMOTIDINE 20 MG TAB PO (08:37)
[2018-03-06] MEDS: ALLOPURINOL 100 MG TAB PO (08:37)
[2018-03-06] MEDS ORDERED: MANNITOL 25% 50 ML INJ IV* (11:00)
[2018-03-06] MEDS: MANNITOL 20% 125 ML IV (11:54)
[2018-03-06] MEDS: HEPARIN 1000 UNITS/ML 10 ML INJ CATHETER (14:18)
[2018-03-06] MEDS: BALSAM PERU/CASTOR OIL 60 GM TUBE TOP ×2 (16:56→20:58)
[2018-03-06] MEDS: HEPARIN 5,000 UNIT/1 ML VIAL SC ×2 (16:59→20:54)
[2018-03-06] MEDS: ATORVASTATIN 40 MG TAB PO (20:50)
[2018-03-06] MEDS: DOXAZOSIN 4 MG TAB PO (20:51)
[2018-03-07] MEDS: INSULIN ASPART [NOVOLOG] 3 ML PEN SC ×6 (01:56→22:05)
[2018-03-07] MEDS: ACETAMINOPHEN 325 MG TAB PO (05:28)
[2018-03-07 05:59] LABS: ADD MAN DIFF? NO
[2018-03-07 06:02] LABS: ABNORMAL IP MESSAGE 1; BASOPHILS % 0.4 % (0.0-2.0); EOSINOPHILS # 0.2 10^3/ul (0.0-0.5); EOSINOPHILS % 1.6 % (0.0-7.0); HEMATOCRIT 25.3 % (42.0-52.0); HEMOGLOBIN 8.3 g/dl (14.0-18.0); LYMPHOCYTES # 0.6 10^3/ul (0.8-2.9); LYMPHOCYTES % 5.6 % (15.0-51.0); MEAN CORPUSCULAR HEMOGLOBIN 31.4 pg (29.0-33.0); MEAN CORPUSCULAR HGB CONC 32.8 g/dl (32.0-37.0); MEAN CORPUSCULAR VOLUME 95.8 fl (82.0-101.0); MEAN PLATELET VOLUME 12.6 fl (7.4-10.4); MONOCYTES % 10.1 % (0.0-11.0); NEUTROPHILS % 81.5 % (39.0-77.0); PLATELET COUNT 168 10^3/UL (140-415); POSITIVE DIFF @See below; RED BLOOD COUNT 2.64 10^6/ul (4.70-6.10); RED CELL DISTRIBUTION WIDTH 15.1 % (11.5-14.5)
[2018-03-07 06:02] LABS: WHITE BLOOD COUNT 9.8 10^3/ul (4.8-10.8)
[2018-03-07 06:34] LABS: ANION GAP 11 (5-13); BLOOD UREA NITROGEN 88 mg/dl (7-20); CALCIUM 8.2 mg/dl (8.4-10.2); CARBON DIOXIDE 25 mmol/L (21-31); CHLORIDE 100 mmol/L (97-110); GLUCOSE 162 mg/dl (70-220); POTASSIUM 4.5 mmol/L (3.5-5.1); SODIUM 136 mmol/L (135-144)
[2018-03-07 06:56] LABS: CREATININE 3.52 mg/dl (0.61-1.24)
[2018-03-07] MEDS: FAMOTIDINE 20 MG TAB PO (08:28)
[2018-03-07] MEDS: ALLOPURINOL 100 MG TAB PO (08:28)
[2018-03-07] MEDS: DOCUSATE SODIUM 10 MG/ML (10ML CUP) GTB ×2 (08:28→21:58)
[2018-03-07] MEDS: NIFEdipine 10 MG CAP NGT ×4 (08:28→21:59)
[2018-03-07] MEDS: FINASTERIDE 5 MG TAB PO (08:28)
[2018-03-07] MEDS: BACLOFEN 10 MG TAB PO ×2 (08:28→21:58)
[2018-03-07] MEDS: HEPARIN 5,000 UNIT/1 ML VIAL SC ×2 (08:30→22:15)
[2018-03-07] MEDS: BALSAM PERU/CASTOR OIL 60 GM TUBE TOP ×2 (08:41→21:00)
[2018-03-07] MEDS ORDERED: COLLAGENASE 5 GM (UD JAR) TOP (12:30)
[2018-03-07] MEDS: COLLAGENASE 5 GM (UD JAR) TOP (13:29)
[2018-03-07] MEDS: DOXAZOSIN 4 MG TAB PO (21:59)
[2018-03-07] MEDS: ATORVASTATIN 40 MG TAB PO (21:59)
[2018-03-08] MEDS: INSULIN ASPART [NOVOLOG] 3 ML PEN SC ×6 (01:51→21:00)
[2018-03-08 06:02] LABS: ADD MAN DIFF? NO
[2018-03-08 06:16] LABS: BASOPHILS % 0.3 % (0.0-2.0); EOSINOPHILS # 0.3 10^3/ul (0.0-0.5); EOSINOPHILS % 3.4 % (0.0-7.0); HEMATOCRIT 25.5 % (42.0-52.0); HEMOGLOBIN 8.4 g/dl (14.0-18.0); LYMPHOCYTES # 0.6 10^3/ul (0.8-2.9); MEAN CORPUSCULAR HEMOGLOBIN 31.7 pg (29.0-33.0); MEAN CORPUSCULAR HGB CONC 32.9 g/dl (32.0-37.0); MEAN CORPUSCULAR VOLUME 96.2 fl (82.0-101.0); MEAN PLATELET VOLUME 12.8 fl (7.4-10.4); MONOCYTES % 11.5 % (0.0-11.0); NEUTROPHIL # 6.7 10^3/ul (1.6-7.5); NEUTROPHILS % 77.1 % (39.0-77.0); PLATELET COUNT 183 10^3/UL (140-415); RED BLOOD COUNT 2.65 10^6/ul (4.70-6.10); RED CELL DISTRIBUTION WIDTH 14.7 % (11.5-14.5)
[2018-03-08 06:16] LABS: WHITE BLOOD COUNT 8.6 10^3/ul (4.8-10.8)
[2018-03-08 06:38] LABS: ANION GAP 17 (5-13); CALCIUM 8.1 mg/dl (8.4-10.2); CARBON DIOXIDE 23 mmol/L (21-31); CHLORIDE 97 mmol/L (97-110); GLUCOSE 148 mg/dl (70-220); SODIUM 137 mmol/L (135-144)
[2018-03-08 06:46] LABS: BLOOD UREA NITROGEN 121 mg/dl (7-20); CREATININE 4.34 mg/dl (0.61-1.24)
[2018-03-08] MEDS: FINASTERIDE 5 MG TAB PO (08:59)
[2018-03-08] MEDS: BACLOFEN 10 MG TAB PO ×2 (08:59→20:58)
[2018-03-08] MEDS: FAMOTIDINE 20 MG TAB PO (09:00)
[2018-03-08] MEDS: ALLOPURINOL 100 MG TAB PO (09:00)
[2018-03-08] MEDS: NIFEdipine 10 MG CAP NGT ×3 (09:00→20:58)
[2018-03-08] MEDS: COLLAGENASE 5 GM (UD JAR) TOP (09:00)
[2018-03-08] MEDS: BALSAM PERU/CASTOR OIL 60 GM TUBE TOP ×2 (09:01→21:05)
[2018-03-08] MEDS: DOCUSATE SODIUM 10 MG/ML (10ML CUP) GTB ×2 (09:01→20:58)
[2018-03-08] MEDS: HEPARIN 5,000 UNIT/1 ML VIAL SC ×2 (09:23→21:13)
[2018-03-08] MEDS: ATORVASTATIN 40 MG TAB PO (20:58)
[2018-03-08] MEDS: DOXAZOSIN 4 MG TAB PO (23:05)
[2018-03-09] MEDS: INSULIN ASPART [NOVOLOG] 3 ML PEN SC ×4 (01:06→13:11)
[2018-03-09 07:46] LABS: ADD MAN DIFF? NO
[2018-03-09 08:13] LABS: ANION GAP 15 (5-13); CARBON DIOXIDE 21 mmol/L (21-31); CHLORIDE 97 mmol/L (97-110); GLUCOSE 140 mg/dl (70-220); POTASSIUM 5.4 mmol/L (3.5-5.1); SODIUM 133 mmol/L (135-144)
[2018-03-09 08:19] LABS: BASOPHILS % 0.2 % (0.0-2.0); EOSINOPHILS # 0.2 10^3/ul (0.0-0.5); EOSINOPHILS % 2.3 % (0.0-7.0); HEMATOCRIT 24.5 % (42.0-52.0); HEMOGLOBIN 8.1 g/dl (14.0-18.0); LYMPHOCYTES # 0.8 10^3/ul (0.8-2.9); LYMPHOCYTES % 8.7 % (15.0-51.0); MEAN CORPUSCULAR HEMOGLOBIN 31.8 pg (29.0-33.0); MEAN CORPUSCULAR HGB CONC 33.1 g/dl (32.0-37.0); MEAN CORPUSCULAR VOLUME 96.1 fl (82.0-101.0); MEAN PLATELET VOLUME 12.8 fl (7.4-10.4); MONOCYTE # 1.2 10^3/ul (0.3-0.9); MONOCYTES % 13.4 % (0.0-11.0); NEUTROPHIL # 6.7 10^3/ul (1.6-7.5); NEUTROPHILS % 74.7 % (39.0-77.0); PLATELET COUNT 188 10^3/UL (140-415); RED BLOOD COUNT 2.55 10^6/ul (4.70-6.10); RED CELL DISTRIBUTION WIDTH 14.9 % (11.5-14.5)
[2018-03-09 08:31] LABS: BLOOD UREA NITROGEN 149 mg/dl (7-20)
[2018-03-09] MEDS: DOCUSATE SODIUM 10 MG/ML (10ML CUP) GTB (08:42)
[2018-03-09] MEDS: NIFEdipine 10 MG CAP NGT ×3 (08:43→13:04)
[2018-03-09] MEDS: COLLAGENASE 5 GM (UD JAR) TOP (08:43)
[2018-03-09] MEDS: ALLOPURINOL 100 MG TAB PO (08:43)
[2018-03-09] MEDS: FAMOTIDINE 20 MG TAB PO (08:43)
[2018-03-09] MEDS: BACLOFEN 10 MG TAB PO (08:43)
[2018-03-09] MEDS: FINASTERIDE 5 MG TAB PO (08:43)
[2018-03-09] MEDS: BALSAM PERU/CASTOR OIL 60 GM TUBE TOP (08:44)
[2018-03-09] MEDS: HEPARIN 5,000 UNIT/1 ML VIAL SC (08:50)
[2018-03-09] MEDS: HEPARIN 1000 UNITS/ML 10 ML INJ CATHETER (10:36)
[2018-03-09] MEDS ORDERED: NIFEdipine 10 MG CAP NGT (21:00)
== END 2018-03-09 16:41 | disposition short-term general hospital (02) | DRG 4 ==
LOC: TEL 03-06 17:59 → E/R 14:26 → ICU 16:57
PROC: 0B110F4 Bypass Trachea to Cutaneous with Tracheostomy Device, Open Approach (ICD-10-PCS; principal; 2018-03-05 16:00)
PROC: 5A1955Z Respiratory Ventilation, Greater than 96 Consecutive Hours (ICD-10-PCS; 2018-03-05 17:26)
PROC: 0BH17EZ Insertion of Endotracheal Airway into Trachea, Via Natural or Artificial Opening (ICD-10-PCS; 2018-03-05 17:26)
PROC: 5A1D70Z Performance of Urinary Filtration, Intermittent, Less than 6 Hours Per Day (ICD-10-PCS; 2018-03-05 17:26)
PROC: 02HV33Z Insertion of Infusion Device into Superior Vena Cava, Percutaneous Approach (ICD-10-PCS; 2018-03-05 17:26)
PROC: B548ZZA Ultrasonography of Superior Vena Cava, Guidance (ICD-10-PCS; 2018-03-05 17:26)
PROC: 30233N1 Transfusion of Nonautologous Red Blood Cells into Peripheral Vein, Percutaneous Approach (ICD-10-PCS; 2018-03-05 17:26)
DX: A41.9 Sepsis, unspecified organism (principal); J18.9 Pneumonia, unspecified organism; J96.01 Acute respiratory failure with hypoxia; N17.0 Acute kidney failure with tubular necrosis; G92 Toxic encephalopathy; R65.21 Severe sepsis with septic shock; I50.31 Acute diastolic (congestive) heart failure; N18.6 End stage renal disease; E87.2 Acidosis; E87.0 Hyperosmolality and hypernatremia; N39.0 Urinary tract infection, site not specified; I13.2 Hypertensive heart and chronic kidney disease with heart failure and with stage 5 chronic kidney disease, or end stage renal disease; N40.0 Benign prostatic hyperplasia without lower urinary tract symptoms; I25.10 Atherosclerotic heart disease of native coronary artery without angina pectoris; Z95.5 Presence of coronary angioplasty implant and graft; Z95.0 Presence of cardiac pacemaker; G89.29 Other chronic pain; M54.9 Dorsalgia, unspecified; D64.9 Anemia, unspecified; D69.6 Thrombocytopenia, unspecified; Z85.46 Personal history of malignant neoplasm of prostate; E87.5 Hyperkalemia; R13.10 Dysphagia, unspecified; I25.2 Old myocardial infarction; F03.90 Unspecified dementia, unspecified severity, without behavioral disturbance, psychotic disturbance, mood disturbance, and anxiety; E79.0 Hyperuricemia without signs of inflammatory arthritis and tophaceous disease; G20 Parkinson's disease; F02.80 Dementia in other diseases classified elsewhere, unspecified severity, without behavioral disturbance, psychotic disturbance, mood disturbance, and anxiety; I48.0 Paroxysmal atrial fibrillation; B96.20 Unspecified Escherichia coli [E. coli] as the cause of diseases classified elsewhere
CPT/HCPCS: 31500; 36415; 36430; 36569; 36600; 70450; 71045; 76937; 80048; 80053; 80202; 81003; 82140; 82270; 82540; 82550; 82565; 82570; 82803; 82962; 83036; 83605; 83735; 83880; 84100; 84155; 84300; 84484; 84520; 84560; 85014; 85018; 85025; 85610; 85730; 86703; 86704; 86709; 86803; 86850; 86900; 86901; 86920; 87040; 87070; 87081; 87086; 87340; 87400; 89190; 89220; 90935; 93005; 93306; 93970; 94002; 94003; 94660; 94770; 96365; 96375; 99291-25

== ENCOUNTER 2018-03-16 11:48 | Day surgery (SDC) | payer OTHER, MEDICARE ==
[2018-03-16] MEDS ORDERED: CEFAZOLIN 1 GM INJ (13:39)
[2018-03-16] MEDS ORDERED: FENTAnyl 50 MCG/ML VIAL (13:41)
== END 2018-03-16 15:07 | disposition other institution (70) ==
LOC: GIL 11:48 → SDS 11:48 → GIL 15:07
DX: R13.10 Dysphagia, unspecified (principal); I10 Essential (primary) hypertension; E78.5 Hyperlipidemia, unspecified; E11.9 Type 2 diabetes mellitus without complications
CPT/HCPCS: 43239; 88305; 88312

== ENCOUNTER 2018-04-15 09:26 | Inpatient (IN) | payer MEDICARE, OTHER ==
[2018-04-15 09:50] LABS: ABNORMAL IP MESSAGE 1; HEMATOCRIT 23.3 % (42.0-52.0); HEMOGLOBIN 7.2 g/dl (14.0-18.0); MEAN CORPUSCULAR HGB CONC 30.9 g/dl (32.0-37.0); MEAN CORPUSCULAR VOLUME 103.6 fl (82.0-101.0); NUCLEATED RED BLOOD CELLS% 3.5 /100WBC (0.0-0.0); PLATELET COUNT 50 10^3/UL (140-415); POSITIVE DIFF @See below; RED BLOOD COUNT 2.25 10^6/ul (4.70-6.10); RED CELL DISTRIBUTION WIDTH 26.1 % (11.5-14.5)
[2018-04-15 09:51] LABS: ADD MAN DIFF? YES
[2018-04-15 10:08] LABS: IRON 33 ug/dl (35-150)
[2018-04-15 10:09] LABS: ALANINE AMINOTRANSFERASE 36 IU/L (13-69); ALBUMIN/GLOBULIN RATIO 0.71; ALKALINE PHOSPHATASE 130 IU/L (42-121); ANION GAP 13 (5-13); ASPARTATE AMINO TRANSFERASE 67 IU/L (15-46); BLOOD UREA NITROGEN 101 mg/dl (7-20); CALCIUM 7.8 mg/dl (8.4-10.2); CARBON DIOXIDE 26 mmol/L (21-31); CHLORIDE 97 mmol/L (97-110); CREATININE 2.75 mg/dl (0.61-1.24); GLUCOSE 138 mg/dl (70-220); LACTATE DEHYDROGENASE 656 IU/L (313-618); SODIUM 136 mmol/L (135-144); TOTAL PROTEIN 4.8 g/dl (6.1-8.1)
[2018-04-15 10:17] LABS: % IRON SATURATION 19 % SAT (22-52); TOTAL IRON BINDING CAPACITY 177 ug/dl (241-421)
[2018-04-15 10:22] LABS: POTASSIUM 2.8 mmol/L (3.5-5.1)
[2018-04-15] MEDS: POTASSIUM CHLORIDE 100 ML IVPB (10:58)
[2018-04-15 11:59] LABS: ANISOCYTOSIS 1+ (0-0); BAND NEUTROPHILS #M 1.3 10^3/ul (0.0-0.6); BAND NEUTROPHILS % (M) 33 % (0-4); BURR CELLS 1+ (0-0); ERYTHROBLAST% (NRBC) (M) 5 % (0-0); GIANT THROMBO% (M) 6 % (0-0); LYMPHOCYTES #M 0.4 10^3/ul (0.8-2.9); LYMPHOCYTES % (M) 11 % (15-51); METAMYELOCYTES %M 1 % (0-0); MICROCYTOSIS 1+ (0-0); MONOCYTE #M 0.1 10^3/ul (0.3-0.9); MONOCYTES % (M) 4 % (0-11); PLATELET ESTIMATE DECREASED; POIKILOCYTOSIS 1+ (0-0); POLYCHROMASIA 1+ (0-0); SEG NEUT #M 2.1 10^3/ul (1.6-7.5); SEGMENTED NEUTROPHILS (M) % 51 % (39-77); SMUDGE%M 13 % (0-0)
[2018-04-15 12:19] LABS: IMMEDIATE SPIN CROSSMATCH 1 1
[2018-04-15] MEDS ORDERED: ACETAMINOPHEN 325 MG TAB PO (12:30)
[2018-04-15] MEDS ORDERED: ONDANSETRON 4 MG INJ IV (12:30)
[2018-04-15] MEDS ORDERED: ONDANSETRON 4 MG TAB GTB (21:30)
[2018-04-15] MEDS: ERTAPENEM SODIUM 0.5 GM in SOD CHLORIDE 0.9% 100 ML IVPB (23:12)
[2018-04-16 02:19] LABS: MAGNESIUM 2.6 mg/dl (1.7-2.5)
[2018-04-16 02:19] LABS: ANION GAP 14 (5-13); BLOOD UREA NITROGEN 104 mg/dl (7-20); CALCIUM 7.7 mg/dl (8.4-10.2); CARBON DIOXIDE 25 mmol/L (21-31); CHLORIDE 96 mmol/L (97-110); GLUCOSE 102 mg/dl (70-220); POTASSIUM 3.4 mmol/L (3.5-5.1); SODIUM 135 mmol/L (135-144)
[2018-04-16] MEDS: POTASSIUM CHLORIDE (SR) 20 MEQ TAB PO (03:02)
[2018-04-16 06:18] LABS: ABNORMAL IP MESSAGE 1; HEMOGLOBIN 7.8 g/dl (14.0-18.0); MEAN CORPUSCULAR HEMOGLOBIN 32.4 pg (29.0-33.0); MEAN CORPUSCULAR HGB CONC 32.5 g/dl (32.0-37.0); MEAN CORPUSCULAR VOLUME 99.6 fl (82.0-101.0); PLATELET COUNT 39 10^3/UL (140-415); POSITIVE DIFF @See below; RED BLOOD COUNT 2.41 10^6/ul (4.70-6.10); RED CELL DISTRIBUTION WIDTH 23.3 % (11.5-14.5)
[2018-04-16 06:18] LABS: WHITE BLOOD COUNT 6.3 10^3/ul (4.8-10.8)
[2018-04-16 06:19] LABS: ADD MAN DIFF? YES
[2018-04-16 06:55] LABS: ANION GAP 15 (5-13); BLOOD UREA NITROGEN 105 mg/dl (7-20); CALCIUM 7.5 mg/dl (8.4-10.2); CARBON DIOXIDE 27 mmol/L (21-31); CHLORIDE 95 mmol/L (97-110); CREATININE 2.76 mg/dl (0.61-1.24); GLUCOSE 105 mg/dl (70-220); POTASSIUM 3.6 mmol/L (3.5-5.1); SODIUM 137 mmol/L (135-144)
[2018-04-16 06:59] LABS: IRON 29 ug/dl (35-150)
[2018-04-16 07:08] LABS: % IRON SATURATION 16 % SAT (22-52); TOTAL IRON BINDING CAPACITY 178 ug/dl (241-421)
[2018-04-16 07:18] LABS: ANISOCYTOSIS 2+ (0-0); BAND NEUTROPHILS #M 3.5 10^3/ul (0.0-0.6); BAND NEUTROPHILS % (M) 57 % (0-4); BURR CELLS 1+ (0-0); ERYTHROBLAST% (NRBC) (M) 11 % (0-0); GIANT THROMBO% (M) 1 % (0-0); LYMPHOCYTES #M 0.6 10^3/ul (0.8-2.9); LYMPHOCYTES % (M) 10 % (15-51); MONOCYTE #M 0.3 10^3/ul (0.3-0.9); MONOCYTES % (M) 6 % (0-11); PLATELET ESTIMATE SIG DECREASED; POIKILOCYTOSIS 1+ (0-0); POLYCHROMASIA 1+ (0-0); SEG NEUT #M 1.9 10^3/ul (1.6-7.5); SEGMENTED NEUTROPHILS (M) % 27 % (39-77); SMUDGE%M 38 % (0-0)
[2018-04-16] MEDS: SALINE 0.65% 45 ML NAS SPRAY NASAL (09:44)
[2018-04-16] MEDS: FINASTERIDE 5 MG TAB GTB (09:44)
[2018-04-16] MEDS: LANSOPRAZOLE 30 MG CAP GTB (09:44)
[2018-04-16] MEDS: DOCUSATE SODIUM 10 MG/ML (10ML CUP) GTB ×2 (09:45→21:27)
[2018-04-16] MEDS: BALSAM PERU/CASTOR OIL 60 GM TUBE TOP (09:45)
[2018-04-16] MEDS: COLLAGENASE 5 GM (UD JAR) TOP ×2 (09:46→21:27)
[2018-04-16] MEDS: ESCITALOPRAM 10 MG TAB GTB (09:46)
[2018-04-16] MEDS: ASCORBIC ACID 250 MG TAB GTB (09:46)
[2018-04-16] MEDS: ZINC OXIDE 20% 30 GM OINT TOP (09:46)
[2018-04-16] MEDS: MULTIVIT/CA CARB/B CMPLX/FA TAB GTB (09:47)
[2018-04-16 10:35] LABS: FOLATE > 20.0 ng/ml (2.8-20.0)
[2018-04-16 16:09] LABS: OCCULT BLOOD STOOL NEGATIVE (NEGATIVE)
[2018-04-16 16:21] LABS: TRANSFERRIN 114 mg/dL (188-341)
[2018-04-16] MEDS ORDERED: SODIUM CHLORIDE 0.9% 1L BAG IV (16:30)
[2018-04-16] MEDS: LORAZEPAM 0.5 MG TAB GTB (17:47)
[2018-04-16] MEDS: EPOETIN 4000 UNITS/1 ML INJ (ESRD) SC (17:48)
[2018-04-16] MEDS: ERTAPENEM SODIUM 0.5 GM in SOD CHLORIDE 0.9% 100 ML IVPB (21:28)
[2018-04-17 05:57] LABS: ABNORMAL IP MESSAGE 1; HEMATOCRIT 24.8 % (42.0-52.0); HEMOGLOBIN 7.9 g/dl (14.0-18.0); MEAN CORPUSCULAR HEMOGLOBIN 32.1 pg (29.0-33.0); MEAN CORPUSCULAR HGB CONC 31.9 g/dl (32.0-37.0); MEAN CORPUSCULAR VOLUME 100.8 fl (82.0-101.0); NUCLEATED RED BLOOD CELLS% 7.8 /100WBC (0.0-0.0); POSITIVE DIFF @See below; RED BLOOD COUNT 2.46 10^6/ul (4.70-6.10); RED CELL DISTRIBUTION WIDTH 24.1 % (11.5-14.5)
[2018-04-17 05:57] LABS: WHITE BLOOD COUNT 5.6 10^3/ul (4.8-10.8)
[2018-04-17 05:58] LABS: RETICULOCYTE COUNT # 0.061 X10^6 (0.020-0.110); RETICULOCYTE COUNT % 2.4 % (0.5-1.5)
[2018-04-17 06:28] LABS: IRON 31 ug/dl (35-150)
[2018-04-17 06:29] LABS: ADD MAN DIFF? YES; PLATELET COUNT 40 10^3/UL (140-415)
[2018-04-17 06:36] LABS: ALANINE AMINOTRANSFERASE 42 IU/L (13-69); ALBUMIN 1.8 g/dl (3.3-4.9); ALBUMIN/GLOBULIN RATIO 0.69; ALKALINE PHOSPHATASE 121 IU/L (42-121); ANION GAP 16 (5-13); ASPARTATE AMINO TRANSFERASE 59 IU/L (15-46); BLOOD UREA NITROGEN 118 mg/dl (7-20); CALCIUM 7.6 mg/dl (8.4-10.2); CARBON DIOXIDE 23 mmol/L (21-31); CHLORIDE 98 mmol/L (97-110); CREATININE 2.92 mg/dl (0.61-1.24); GLUCOSE 154 mg/dl (70-220); POTASSIUM 3.2 mmol/L (3.5-5.1); SODIUM 137 mmol/L (135-144); TOTAL PROTEIN 4.4 g/dl (6.1-8.1)
[2018-04-17 06:38] LABS: % IRON SATURATION 20 % SAT (22-52); TOTAL IRON BINDING CAPACITY 156 ug/dl (241-421)
[2018-04-17 06:46] LABS: MAGNESIUM 2.5 mg/dl (1.7-2.5)
[2018-04-17 06:46] LABS: PHOSPHORUS 3.5 mg/dl (2.5-4.9)
[2018-04-17] MEDS: PANTOPRAZOLE 40 MG INJ IV (07:30)
[2018-04-17 07:32] LABS: FOLATE > 20.0 ng/ml (2.8-20.0)
[2018-04-17] MEDS: ALBUMIN HUMAN 25% 100 ML IV ×2 (08:36→09:37)
[2018-04-17] MEDS: ZINC OXIDE 20% 30 GM OINT TOP (09:00)
[2018-04-17 09:12] LABS: ANISOCYTOSIS 1+ (0-0); BAND NEUTROPHILS #M 2.3 10^3/ul (0.0-0.6); BAND NEUTROPHILS % (M) 42 % (0-4); BURR CELLS 2+ (0-0); EOSINOPHILS % (M) 1 % (0-7); ERYTHROBLAST% (NRBC) (M) 15 % (0-0); GIANT THROMBO% (M) 5 % (0-0); LYMPHOCYTES #M 0.3 10^3/ul (0.8-2.9); LYMPHOCYTES % (M) 6 % (15-51); METAMYELOCYTES %M 1 % (0-0); MONOCYTE #M 0.3 10^3/ul (0.3-0.9); MONOCYTES % (M) 7 % (0-11); MYELOCYTES #M 0.1 10^3/ul (0.0-0.0); MYELOCYTES % (M) 2 % (0-0); OVALOCYTES 1+ (0-0); PLATELET ESTIMATE SIG DECREASED; POIKILOCYTOSIS 2+ (0-0); POLYCHROMASIA 2+ (0-0); REACTIVE LYMPHOCYTES #M 0.1 10^3/ul (0.0-0.0); REACTIVE LYMPHOCYTES% (M) 3 % (0-0); SEG NEUT #M 2.3 10^3/ul (1.6-7.5); SEGMENTED NEUTROPHILS (M) % 38 % (39-77); SMUDGE%M 35 % (0-0); TARGET CELLS 1+ (0-0); TEAR DROP CELLS 1+ (0-0); TOXIC GRANULATION 1+ (0-0)
[2018-04-17] MEDS: HEPARIN 1000 UNITS/ML 10 ML INJ CATHETER (10:46)
[2018-04-17] MEDS: MULTIVIT/CA CARB/B CMPLX/FA TAB GTB (12:14)
[2018-04-17] MEDS: ESCITALOPRAM 10 MG TAB GTB (12:14)
[2018-04-17] MEDS: DOCUSATE SODIUM 10 MG/ML (10ML CUP) GTB ×2 (12:14→21:20)
[2018-04-17] MEDS: POTASSIUM CHLORIDE 100 ML IVPB (12:15)
[2018-04-17] MEDS: COLLAGENASE 5 GM (UD JAR) TOP ×2 (12:21→21:20)
[2018-04-17] MEDS: BALSAM PERU/CASTOR OIL 60 GM TUBE TOP (12:21)
[2018-04-17] MEDS: FINASTERIDE 5 MG TAB GTB (12:50)
[2018-04-17] MEDS: ASCORBIC ACID 250 MG TAB GTB (12:50)
[2018-04-17] MEDS: SOD FERRIC GLUC COMPLX 125 MG in SOD CHLORIDE 0.9% 100 ML IVPB (12:56)
[2018-04-17] MEDS: LORAZEPAM 0.5 MG TAB GTB (17:49)
[2018-04-17] MEDS: ERTAPENEM SODIUM 0.5 GM in SOD CHLORIDE 0.9% 100 ML IVPB (21:20)
[2018-04-17] MEDS: ALBUTEROL/IPRATROPIUM (NEB) 3 ML AMP HHN (21:38)
[2018-04-17] MEDS: GUAIFENESIN/DM 5ML CUP PO (22:27)
[2018-04-18] MEDS: LORAZEPAM 0.5 MG TAB GTB (01:44)
[2018-04-18] MEDS: GUAIFENESIN/DM 5ML CUP PO ×2 (01:44→05:55)
[2018-04-18] MEDS: PANTOPRAZOLE 40 MG INJ IV (05:55)
[2018-04-18] MEDS: ESCITALOPRAM 10 MG TAB GTB (09:14)
[2018-04-18] MEDS: COLLAGENASE 5 GM (UD JAR) TOP ×2 (09:14→21:38)
[2018-04-18] MEDS: MULTIVIT/CA CARB/B CMPLX/FA TAB GTB (09:14)
[2018-04-18] MEDS: DOCUSATE SODIUM 10 MG/ML (10ML CUP) GTB ×2 (09:14→21:37)
[2018-04-18] MEDS: FINASTERIDE 5 MG TAB GTB (09:15)
[2018-04-18] MEDS: ASCORBIC ACID 250 MG TAB GTB (09:15)
[2018-04-18] MEDS: ZINC OXIDE 20% 30 GM OINT TOP (09:16)
[2018-04-18] MEDS: INFLUENZA VIRUS VACCINE 0.5 ML (DISPENSING) IM* (09:17)
[2018-04-18] MEDS: BALSAM PERU/CASTOR OIL 60 GM TUBE TOP (09:18)
[2018-04-18] MEDS: metroNIDAZOLE 500 MG/NS (PMX) 100 ML IVPB ×2 (11:56→17:50)
[2018-04-18] MEDS: POTASSIUM CHLORIDE 50 ML IVPB ×3 (11:56→15:30)
[2018-04-18] MEDS: SOD FERRIC GLUC COMPLX 125 MG in SOD CHLORIDE 0.9% 100 ML IVPB (13:18)
[2018-04-18] MEDS: VANCOMYCIN HCL 250 MG/5ML POSYG PO ×2 (13:19→17:50)
[2018-04-18] MEDS ORDERED: EPOETIN 10000 UNITS/1 ML INJ (ESRD) SC (17:00)
[2018-04-18] MEDS: MIDODRINE 5 MG TAB PO (17:54)
[2018-04-18] MEDS: ERTAPENEM SODIUM 0.5 GM in SOD CHLORIDE 0.9% 100 ML IVPB (21:36)
[2018-04-19] MEDS: VANCOMYCIN HCL 250 MG/5ML POSYG PO ×4 (00:23→17:26)
[2018-04-19] MEDS: metroNIDAZOLE 500 MG/NS (PMX) 100 ML IVPB ×4 (00:23→17:26)
[2018-04-19] MEDS: LANSOPRAZOLE 30 MG CAP PEG (06:10)
[2018-04-19] MEDS: ESCITALOPRAM 10 MG TAB GTB (08:38)
[2018-04-19] MEDS: COLLAGENASE 5 GM (UD JAR) TOP ×2 (08:38→20:57)
[2018-04-19] MEDS: FINASTERIDE 5 MG TAB GTB (08:38)
[2018-04-19] MEDS: MULTIVIT/CA CARB/B CMPLX/FA TAB GTB (08:38)
[2018-04-19] MEDS: ASCORBIC ACID 250 MG TAB GTB (08:38)
[2018-04-19] MEDS: DOCUSATE SODIUM 10 MG/ML (10ML CUP) GTB ×2 (08:39→20:56)
[2018-04-19] MEDS: MIDODRINE 5 MG TAB PO ×3 (08:39→17:26)
[2018-04-19] MEDS: ZINC OXIDE 20% 30 GM OINT TOP (08:40)
[2018-04-19] MEDS: BALSAM PERU/CASTOR OIL 60 GM TUBE TOP (08:40)
[2018-04-19 11:45] LABS: WHITE BLOOD COUNT 7.5 10^3/ul (4.8-10.8)
[2018-04-19 11:45] LABS: ABNORMAL IP MESSAGE 1; HEMATOCRIT 22.4 % (42.0-52.0); HEMOGLOBIN 7.2 g/dl (14.0-18.0); MEAN CORPUSCULAR HEMOGLOBIN 32.4 pg (29.0-33.0); MEAN CORPUSCULAR HGB CONC 32.1 g/dl (32.0-37.0); MEAN CORPUSCULAR VOLUME 100.9 fl (82.0-101.0); NUCLEATED RED BLOOD CELLS% 6.6 /100WBC (0.0-0.0); PLATELET COUNT 35 10^3/UL (140-415); POSITIVE DIFF @See below; RED BLOOD COUNT 2.22 10^6/ul (4.70-6.10); RED CELL DISTRIBUTION WIDTH 24.5 % (11.5-14.5)
[2018-04-19 11:48] LABS: ADD MAN DIFF? YES
[2018-04-19 12:03] LABS: ANION GAP 16 (5-13); BLOOD UREA NITROGEN 103 mg/dl (7-20); CALCIUM 7.5 mg/dl (8.4-10.2); CARBON DIOXIDE 22 mmol/L (21-31); CHLORIDE 97 mmol/L (97-110); GLUCOSE 122 mg/dl (70-220); SODIUM 135 mmol/L (135-144)
[2018-04-19 12:06] LABS: POTASSIUM 3.1 mmol/L (3.5-5.1)
[2018-04-19] MEDS: SOD FERRIC GLUC COMPLX 125 MG in SOD CHLORIDE 0.9% 100 ML IVPB (12:28)
[2018-04-19 13:00] LABS: ANISOCYTOSIS 2+ (0-0); BAND NEUTROPHILS #M 2.6 10^3/ul (0.0-0.6); BAND NEUTROPHILS % (M) 35 % (0-4); ERYTHROBLAST% (NRBC) (M) 6 % (0-0); GIANT THROMBO% (M) 4 % (0-0); LYMPHOCYTES #M 0.9 10^3/ul (0.8-2.9); LYMPHOCYTES % (M) 12 % (15-51); METAMYELOCYTES #M 0.6 10^3/ul (0.0-0.0); METAMYELOCYTES %M 9 % (0-0); MONOCYTES % (M) 1 % (0-11); MYELOCYTES #M 0.1 10^3/ul (0.0-0.0); MYELOCYTES % (M) 2 % (0-0); PLATELET ESTIMATE SIG DECREASED; POIKILOCYTOSIS 1+ (0-0); POLYCHROMASIA 1+ (0-0); PROMYELOCYTES #M 0.2 10^3/ul (0-0); PROMYELOCYTES % (M) 3 % (0-0); REACTIVE LYMPHOCYTES% (M) 1 % (0-0); SEGMENTED NEUTROPHILS (M) % 37 % (39-77); SMUDGE%M 46 % (0-0); SPHEROCYTES 1+ (0-0); TOXIC GRANULATION 1+ (0-0)
[2018-04-19] MEDS: EPOETIN 4000 UNITS/1 ML INJ (ESRD) SC (17:27)
[2018-04-19] MEDS: HYDROCODONE/APAP (5/325) TAB PO (18:51)
[2018-04-19] MEDS: HEPARIN 1000 UNITS/ML 10 ML INJ CATHETER (20:29)
[2018-04-19] MEDS: ERTAPENEM SODIUM 0.5 GM in SOD CHLORIDE 0.9% 100 ML IVPB (21:01)
[2018-04-20] MEDS: metroNIDAZOLE 500 MG/NS (PMX) 100 ML IVPB ×4 (01:12→17:32)
[2018-04-20] MEDS: VANCOMYCIN HCL 250 MG/5ML POSYG PO ×4 (01:12→17:32)
[2018-04-20] MEDS: LORAZEPAM 0.5 MG TAB GTB (02:19)
[2018-04-20] MEDS: LANSOPRAZOLE 30 MG CAP PEG (05:42)
[2018-04-20 06:11] LABS: WHITE BLOOD COUNT 7.1 10^3/ul (4.8-10.8)
[2018-04-20 06:11] LABS: ABNORMAL IP MESSAGE 1; MEAN CORPUSCULAR HEMOGLOBIN 34.7 pg (29.0-33.0); MEAN CORPUSCULAR HGB CONC 33.3 g/dl (32.0-37.0); PLATELET COUNT 42 10^3/UL (140-415); POSITIVE DIFF @See below; RED BLOOD COUNT 2.02 10^6/ul (4.70-6.10); RED CELL DISTRIBUTION WIDTH 24.8 % (11.5-14.5)
[2018-04-20 06:32] LABS: ADD MAN DIFF? YES; ANION GAP 6 (5-13); BLOOD UREA NITROGEN 81 mg/dl (7-20); CALCIUM 7.5 mg/dl (8.4-10.2); CARBON DIOXIDE 26 mmol/L (21-31); CHLORIDE 102 mmol/L (97-110); CREATININE 1.86 mg/dl (0.61-1.24); GLUCOSE 134 mg/dl (70-220); SODIUM 134 mmol/L (135-144)
[2018-04-20 06:43] LABS: POTASSIUM 2.8 mmol/L (3.5-5.1)
[2018-04-20 07:04] LABS: OCCULT BLOOD STOOL POSITIVE (NEGATIVE)
[2018-04-20 07:06] LABS: PROTEIN, TOTAL 4.3 g/dL (6.1-8.1)
[2018-04-20 08:23] LABS: ANISOCYTOSIS 2+ (0-0); BAND NEUTROPHILS #M 2.4 10^3/ul (0.0-0.6); BAND NEUTROPHILS % (M) 34 % (0-4); BASOPHIL #M 0.1 10^3/ul (0.0-0.0); BASOPHILS % (M) 2 % (0-2); ERYTHROBLAST% (NRBC) (M) 2 % (0-0); GIANT THROMBO% (M) 4 % (0-0); LYMPHOCYTES #M 0.7 10^3/ul (0.8-2.9); LYMPHOCYTES % (M) 10 % (15-51); METAMYELOCYTES #M 0.6 10^3/ul (0.0-0.0); METAMYELOCYTES %M 9 % (0-0); MONOCYTE #M 0.7 10^3/ul (0.3-0.9); MONOCYTES % (M) 10 % (0-11); MYELOCYTES #M 0.1 10^3/ul (0.0-0.0); MYELOCYTES % (M) 2 % (0-0); OVALOCYTES 1+ (0-0); PLATELET ESTIMATE SIG DECREASED; POLYCHROMASIA 1+ (0-0); PROMYELOCYTES % (M) 1 % (0-0); SEG NEUT #M 2.4 10^3/ul (1.6-7.5); SEGMENTED NEUTROPHILS (M) % 32 % (39-77); SMUDGE%M 60 % (0-0); TARGET CELLS 1+ (0-0); TEAR DROP CELLS 1+ (0-0)
[2018-04-20] MEDS: COLLAGENASE 5 GM (UD JAR) TOP ×2 (08:41→21:16)
[2018-04-20] MEDS: FINASTERIDE 5 MG TAB GTB (08:41)
[2018-04-20] MEDS: ESCITALOPRAM 10 MG TAB GTB (08:41)
[2018-04-20] MEDS: POTASSIUM CHLORIDE 20 MEQ POWDER FOR ORAL SOLN GTB (08:41)
[2018-04-20] MEDS: DOCUSATE SODIUM 10 MG/ML (10ML CUP) GTB ×2 (08:41→20:34)
[2018-04-20] MEDS: MULTIVIT/CA CARB/B CMPLX/FA TAB GTB (08:41)
[2018-04-20] MEDS: ASCORBIC ACID 250 MG TAB GTB (08:41)
[2018-04-20] MEDS: BALSAM PERU/CASTOR OIL 60 GM TUBE TOP (08:42)
[2018-04-20] MEDS: ZINC OXIDE 20% 30 GM OINT TOP (08:42)
[2018-04-20] MEDS: MIDODRINE 5 MG TAB PO ×3 (08:45→17:31)
[2018-04-20] MEDS: SOD FERRIC GLUC COMPLX 125 MG in SOD CHLORIDE 0.9% 100 ML IVPB (13:08)
[2018-04-20 14:56] LABS: HAPTOGLOBIN 242 mg/dL (43-212)
[2018-04-20] MEDS: POTASSIUM CHLORIDE 100 ML IVPB (15:22)
[2018-04-20 15:42] LABS: ALBUMIN 1.7 g/dL (3.8-4.8); ALPHA-1-GLOBULINS 0.6 g/dL (0.2-0.3); ALPHA-2-GLOBULINS 0.8 g/dL (0.5-0.9); BETA 2 GLOBULINS 0.2 g/dL (0.2-0.5); BETA GLOBULINS 0.2 g/dL (0.4-0.6); GAMMA GLOBULINS 0.9 g/dL (0.8-1.7)
[2018-04-21] MEDS: metroNIDAZOLE 500 MG/NS (PMX) 100 ML IVPB ×5 (00:59→23:59)
[2018-04-21] MEDS: VANCOMYCIN HCL 250 MG/5ML POSYG PO ×4 (00:59→17:33)
[2018-04-21] MEDS: LORAZEPAM 0.5 MG TAB GTB (05:00)
[2018-04-21] MEDS: LANSOPRAZOLE 30 MG CAP PEG (05:01)
[2018-04-21] MEDS: GUAIFENESIN/DM 5ML CUP PO (05:01)
[2018-04-21 06:24] LABS: ANION GAP 10 (5-13); BLOOD UREA NITROGEN 95 mg/dl (7-20); CALCIUM 7.5 mg/dl (8.4-10.2); CARBON DIOXIDE 20 mmol/L (21-31); CHLORIDE 104 mmol/L (97-110); CREATININE 1.97 mg/dl (0.61-1.24); GLUCOSE 110 mg/dl (70-220); POTASSIUM 3.6 mmol/L (3.5-5.1); SODIUM 134 mmol/L (135-144)
[2018-04-21 07:01] LABS: ABNORMAL IP MESSAGE 1; HEMATOCRIT 22.9 % (42.0-52.0); HEMOGLOBIN 7.5 g/dl (14.0-18.0); MEAN CORPUSCULAR HEMOGLOBIN 32.9 pg (29.0-33.0); MEAN CORPUSCULAR HGB CONC 32.8 g/dl (32.0-37.0); MEAN CORPUSCULAR VOLUME 100.4 fl (82.0-101.0); NUCLEATED RED BLOOD CELLS% 4.1 /100WBC (0.0-0.0); PLATELET COUNT 52 10^3/UL (140-415); POSITIVE DIFF @See below; RED BLOOD COUNT 2.28 10^6/ul (4.70-6.10)
[2018-04-21 07:01] LABS: WHITE BLOOD COUNT 7.4 10^3/ul (4.8-10.8)
[2018-04-21 07:02] LABS: ADD MAN DIFF? YES
[2018-04-21 07:09] LABS: MAGNESIUM 2.2 mg/dl (1.7-2.5)
[2018-04-21 09:18] LABS: ANISOCYTOSIS 2+ (0-0); BAND NEUTROPHILS #M 2.9 10^3/ul (0.0-0.6); BAND NEUTROPHILS % (M) 40 % (0-4); BURR CELLS 1+ (0-0); ERYTHROBLAST% (NRBC) (M) 8 % (0-0); HYPOCHROMASIA 2+ (0-0); LYMPHOCYTES #M 0.6 10^3/ul (0.8-2.9); LYMPHOCYTES % (M) 9 % (15-51); METAMYELOCYTES #M 0.1 10^3/ul (0.0-0.0); METAMYELOCYTES %M 2 % (0-0); MICROCYTOSIS 1+ (0-0); MONOCYTE #M 0.5 10^3/ul (0.3-0.9); MONOCYTES % (M) 7 % (0-11); MYELOCYTES #M 0.3 10^3/ul (0.0-0.0); MYELOCYTES % (M) 5 % (0-0); OVALOCYTES 1+ (0-0); PLATELET ESTIMATE DECREASED; POIKILOCYTOSIS 1+ (0-0); POLYCHROMASIA 2+ (0-0); PROMYELOCYTES % (M) 1 % (0-0); SEG NEUT #M 2.9 10^3/ul (1.6-7.5); SEGMENTED NEUTROPHILS (M) % 36 % (39-77); SMUDGE%M 40 % (0-0); SPHEROCYTES 1+ (0-0)
[2018-04-21] MEDS ORDERED: ALBUMIN HUMAN 25% 100 ML IV (12:00)
[2018-04-21] MEDS: ALBUMIN HUMAN 25% 100 ML IV (12:11)
[2018-04-21] MEDS: HEPARIN 1000 UNITS/ML 10 ML INJ CATHETER (13:43)
[2018-04-21] MEDS: COLLAGENASE 5 GM (UD JAR) TOP ×2 (14:47→21:52)
[2018-04-21] MEDS: DOCUSATE SODIUM 10 MG/ML (10ML CUP) GTB ×2 (14:47→21:52)
[2018-04-21] MEDS: FINASTERIDE 5 MG TAB GTB (14:48)
[2018-04-21] MEDS: ASCORBIC ACID 250 MG TAB GTB (14:48)
[2018-04-21] MEDS: MULTIVIT/CA CARB/B CMPLX/FA TAB GTB (14:48)
[2018-04-21] MEDS: ESCITALOPRAM 10 MG TAB GTB (14:48)
[2018-04-21] MEDS: BALSAM PERU/CASTOR OIL 60 GM TUBE TOP (14:49)
[2018-04-21] MEDS: MIDODRINE 5 MG TAB PO ×3 (14:49→17:00)
[2018-04-21] MEDS: ZINC OXIDE 20% 30 GM OINT TOP (14:50)
[2018-04-21] MEDS: SOD FERRIC GLUC COMPLX 125 MG in SOD CHLORIDE 0.9% 100 ML IVPB (15:43)
[2018-04-21] MEDS: EPOETIN 4000 UNITS/1 ML INJ (ESRD) SC (17:28)
[2018-04-22] MEDS: LORAZEPAM 0.5 MG TAB GTB ×2 (03:00→21:36)
[2018-04-22] MEDS: metroNIDAZOLE 500 MG/NS (PMX) 100 ML IVPB (05:56)
[2018-04-22] MEDS: VANCOMYCIN HCL 250 MG/5ML POSYG PO ×4 (05:57→17:43)
[2018-04-22] MEDS: LANSOPRAZOLE 30 MG CAP PEG (06:00)
[2018-04-22 06:31] LABS: ABNORMAL IP MESSAGE 1; HEMATOCRIT 21.7 % (42.0-52.0); HEMOGLOBIN 7.4 g/dl (14.0-18.0); MEAN CORPUSCULAR HEMOGLOBIN 35.4 pg (29.0-33.0); MEAN CORPUSCULAR HGB CONC 34.1 g/dl (32.0-37.0); MEAN CORPUSCULAR VOLUME 103.8 fl (82.0-101.0); NUCLEATED RED BLOOD CELLS% 3.7 /100WBC (0.0-0.0); PLATELET COUNT 58 10^3/UL (140-415); POSITIVE DIFF @See below; RED BLOOD COUNT 2.09 10^6/ul (4.70-6.10); RED CELL DISTRIBUTION WIDTH 25.7 % (11.5-14.5)
[2018-04-22 06:34] LABS: ADD MAN DIFF? YES
[2018-04-22 07:02] LABS: ANION GAP 12 (5-13); BLOOD UREA NITROGEN 80 mg/dl (7-20); CALCIUM 7.9 mg/dl (8.4-10.2); CARBON DIOXIDE 22 mmol/L (21-31); CHLORIDE 101 mmol/L (97-110); CREATININE 1.82 mg/dl (0.61-1.24); GLUCOSE 98 mg/dl (70-220); SODIUM 135 mmol/L (135-144)
[2018-04-22] MEDS: ZINC OXIDE 20% 30 GM OINT TOP (09:07)
[2018-04-22] MEDS: DOCUSATE SODIUM 10 MG/ML (10ML CUP) GTB (09:07)
[2018-04-22] MEDS: COLLAGENASE 5 GM (UD JAR) TOP ×2 (09:07→21:36)
[2018-04-22] MEDS: BALSAM PERU/CASTOR OIL 60 GM TUBE TOP (09:07)
[2018-04-22] MEDS: MULTIVIT/CA CARB/B CMPLX/FA TAB GTB (09:08)
[2018-04-22] MEDS: ASCORBIC ACID 250 MG TAB GTB (09:08)
[2018-04-22] MEDS: ESCITALOPRAM 10 MG TAB GTB (09:08)
[2018-04-22] MEDS: FINASTERIDE 5 MG TAB GTB (09:08)
[2018-04-22] MEDS: POTASSIUM CHLORIDE (SR) 10 MEQ TAB GTB (09:08)
[2018-04-22] MEDS: MIDODRINE 5 MG TAB PO ×3 (09:10→17:00)
[2018-04-22 09:26] LABS: ANISOCYTOSIS 2+ (0-0); BAND NEUTROPHILS #M 3.7 10^3/ul (0.0-0.6); BAND NEUTROPHILS % (M) 37 % (0-4); EOSINOPHILS % (M) 1 % (0-7); ERYTHROBLAST% (NRBC) (M) 6 % (0-0); GIANT THROMBO% (M) 2 % (0-0); LYMPHOCYTES #M 0.9 10^3/ul (0.8-2.9); LYMPHOCYTES % (M) 9 % (15-51); METAMYELOCYTES #M 0.1 10^3/ul (0.0-0.0); METAMYELOCYTES %M 1 % (0-0); MONOCYTE #M 0.2 10^3/ul (0.3-0.9); MONOCYTES % (M) 2 % (0-11); MYELOCYTES #M 0.6 10^3/ul (0.0-0.0); MYELOCYTES % (M) 6 % (0-0); PLATELET ESTIMATE SIG DECREASED; POLYCHROMASIA 1+ (0-0); PROMYELOCYTES #M 0.1 10^3/ul (0-0); PROMYELOCYTES % (M) 1 % (0-0); SEG NEUT #M 4.7 10^3/ul (1.6-7.5); SEGMENTED NEUTROPHILS (M) % 43 % (39-77); SMUDGE%M 37 % (0-0); SPHEROCYTES 1+ (0-0)
[2018-04-22] MEDS: SOD FERRIC GLUC COMPLX 125 MG in SOD CHLORIDE 0.9% 100 ML IVPB (12:05)
[2018-04-22] MEDS: FAMOTIDINE 20 MG TAB GTB (21:36)
[2018-04-23] MEDS: VANCOMYCIN HCL 250 MG/5ML POSYG PO ×4 (00:10→17:21)
[2018-04-23 05:27] LABS: ADD MAN DIFF? NO
[2018-04-23 05:33] LABS: ABNORMAL IP MESSAGE 1; HEMATOCRIT 22.7 % (42.0-52.0); HEMOGLOBIN 7.5 g/dl (14.0-18.0); MEAN CORPUSCULAR HEMOGLOBIN 33.5 pg (29.0-33.0); MEAN CORPUSCULAR VOLUME 101.3 fl (82.0-101.0); MEAN PLATELET VOLUME 14.8 fl (7.4-10.4); NUCLEATED RED BLOOD CELLS% 3.6 /100WBC (0.0-0.0); PLATELET COUNT 71 10^3/UL (140-415); POSITIVE DIFF @See below; RED BLOOD COUNT 2.24 10^6/ul (4.70-6.10); RED CELL DISTRIBUTION WIDTH 25.2 % (11.5-14.5)
[2018-04-23 05:33] LABS: WHITE BLOOD COUNT 9.8 10^3/ul (4.8-10.8)
[2018-04-23 06:12] LABS: ANION GAP 12 (5-13); BLOOD UREA NITROGEN 93 mg/dl (7-20); CARBON DIOXIDE 19 mmol/L (21-31); CHLORIDE 101 mmol/L (97-110); CREATININE 2.11 mg/dl (0.61-1.24); GLUCOSE 136 mg/dl (70-220); SODIUM 132 mmol/L (135-144)
[2018-04-23 06:17] LABS: POTASSIUM 2.9 mmol/L (3.5-5.1)
[2018-04-23] MEDS: POTASSIUM CHLORIDE (SR) 20 MEQ TAB PO (06:52)
[2018-04-23 08:00] LABS: ANISOCYTOSIS 2+ (0-0); BAND NEUTROPHILS #M 1.8 10^3/ul (0.0-0.6); BAND NEUTROPHILS % (M) 19 % (0-4); BURR CELLS 1+ (0-0); ERYTHROBLAST% (NRBC) (M) 4 % (0-0); GIANT THROMBO% (M) 3 % (0-0); LYMPHOCYTES #M 0.7 10^3/ul (0.8-2.9); LYMPHOCYTES % (M) 8 % (15-51); METAMYELOCYTES #M 0.2 10^3/ul (0.0-0.0); METAMYELOCYTES %M 3 % (0-0); MONOCYTE #M 1.2 10^3/ul (0.3-0.9); MONOCYTES % (M) 13 % (0-11); MYELOCYTES #M 0.2 10^3/ul (0.0-0.0); MYELOCYTES % (M) 3 % (0-0); OVALOCYTES 1+ (0-0); PLATELET ESTIMATE DECREASED; POIKILOCYTOSIS 1+ (0-0); POLYCHROMASIA 3+ (0-0); PROMYELOCYTES % (M) 1 % (0-0); SEG NEUT #M 5.4 10^3/ul (1.6-7.5); SEGMENTED NEUTROPHILS (M) % 53 % (39-77); SMUDGE%M 27 % (0-0); TEAR DROP CELLS 1+ (0-0)
[2018-04-23] MEDS: MIDODRINE 5 MG TAB PO ×3 (09:09→16:19)
[2018-04-23] MEDS: ZINC OXIDE 20% 30 GM OINT TOP (09:09)
[2018-04-23] MEDS: COLLAGENASE 5 GM (UD JAR) TOP ×2 (09:09→21:59)
[2018-04-23] MEDS: ESCITALOPRAM 10 MG TAB GTB (09:09)
[2018-04-23] MEDS: ASCORBIC ACID 250 MG TAB GTB (09:09)
[2018-04-23] MEDS: FINASTERIDE 5 MG TAB GTB (09:09)
[2018-04-23] MEDS: MULTIVIT/CA CARB/B CMPLX/FA TAB GTB (09:09)
[2018-04-23] MEDS: BALSAM PERU/CASTOR OIL 60 GM TUBE TOP (09:10)
[2018-04-23 10:28] LABS: HEPATITIS B SURFACE ANTIGEN NEGATIVE (NEGATIVE)
[2018-04-23] MEDS: ALBUMIN HUMAN 25% 100 ML IV (11:50)
[2018-04-23] MEDS: HEPARIN 1000 UNITS/ML 10 ML INJ CATHETER (14:14)
[2018-04-23 14:45] LABS: HAPTOGLOBIN 218 mg/dL (43-212)
[2018-04-23] MEDS: EPOETIN 4000 UNITS/1 ML INJ (ESRD) SC (16:19)
[2018-04-23] MEDS: FAMOTIDINE 20 MG TAB GTB (22:00)
[2018-04-24] MEDS: VANCOMYCIN HCL 250 MG/5ML POSYG PO ×5 (00:29→23:04)
[2018-04-24 05:54] LABS: ADD MAN DIFF? NO
[2018-04-24 05:59] LABS: ABNORMAL IP MESSAGE 1; BASOPHILS % 0.1 % (0.0-2.0); EOSINOPHILS % 0.2 % (0.0-7.0); HEMATOCRIT 21.5 % (42.0-52.0); LYMPHOCYTES # 0.8 10^3/ul (0.8-2.9); LYMPHOCYTES % 8.9 % (15.0-51.0); MEAN CORPUSCULAR HGB CONC 32.6 g/dl (32.0-37.0); MEAN CORPUSCULAR VOLUME 104.4 fl (82.0-101.0); MEAN PLATELET VOLUME 14.2 fl (7.4-10.4); MONOCYTE # 0.6 10^3/ul (0.3-0.9); MONOCYTES % 6.4 % (0.0-11.0); NEUTROPHIL # 7.1 10^3/ul (1.6-7.5); NEUTROPHILS % 79.2 % (39.0-77.0); NUCLEATED RED BLOOD CELLS # 0.4 10^3/ul (0.0-0.0); NUCLEATED RED BLOOD CELLS% 4.3 /100WBC (0.0-0.0); PLATELET COUNT 68 10^3/UL (140-415); POSITIVE DIFF @See below; RED BLOOD COUNT 2.06 10^6/ul (4.70-6.10); RED CELL DISTRIBUTION WIDTH 26.5 % (11.5-14.5)
[2018-04-24 05:59] LABS: WHITE BLOOD COUNT 8.9 10^3/ul (4.8-10.8)
[2018-04-24 06:31] LABS: ANION GAP 12 (5-13); BLOOD UREA NITROGEN 77 mg/dl (7-20); CALCIUM 8.2 mg/dl (8.4-10.2); CARBON DIOXIDE 20 mmol/L (21-31); CHLORIDE 104 mmol/L (97-110); CREATININE 1.74 mg/dl (0.61-1.24); GLUCOSE 127 mg/dl (70-220); POTASSIUM 3.2 mmol/L (3.5-5.1); SODIUM 136 mmol/L (135-144)
[2018-04-24 07:23] LABS: ANISOCYTOSIS 2+ (0-0); BAND NEUTROPHILS #M 3.4 10^3/ul (0.0-0.6); BAND NEUTROPHILS % (M) 39 % (0-4); BURR CELLS 1+ (0-0); ERYTHROBLAST% (NRBC) (M) 5 % (0-0); GIANT THROMBO% (M) 4 % (0-0); LYMPHOCYTES #M 0.2 10^3/ul (0.8-2.9); LYMPHOCYTES % (M) 3 % (15-51); METAMYELOCYTES %M 1 % (0-0); MONOCYTE #M 0.9 10^3/ul (0.3-0.9); MONOCYTES % (M) 11 % (0-11); MYELOCYTES % (M) 1 % (0-0); OVALOCYTES 1+ (0-0); PLATELET ESTIMATE DECREASED; POLYCHROMASIA 2+ (0-0); REACTIVE LYMPHOCYTES #M 0.1 10^3/ul (0.0-0.0); REACTIVE LYMPHOCYTES% (M) 2 % (0-0); SEG NEUT #M 4.1 10^3/ul (1.6-7.5); SEGMENTED NEUTROPHILS (M) % 43 % (39-77); SMUDGE%M 50 % (0-0); TEAR DROP CELLS 1+ (0-0)
[2018-04-24] MEDS: MIDODRINE 5 MG TAB PO ×3 (09:00→17:00)
[2018-04-24] MEDS: FINASTERIDE 5 MG TAB GTB (09:24)
[2018-04-24] MEDS: MULTIVIT/CA CARB/B CMPLX/FA TAB GTB (09:24)
[2018-04-24] MEDS: ASCORBIC ACID 250 MG TAB GTB (09:24)
[2018-04-24] MEDS: ESCITALOPRAM 10 MG TAB GTB (09:24)
[2018-04-24] MEDS: ZINC OXIDE 20% 30 GM OINT TOP (09:26)
[2018-04-24] MEDS: BALSAM PERU/CASTOR OIL 60 GM TUBE TOP (09:26)
[2018-04-24] MEDS: COLLAGENASE 5 GM (UD JAR) TOP ×2 (09:27→23:05)
[2018-04-24] MEDS: HYDROCODONE/APAP (5/325) TAB PO (10:04)
[2018-04-24] MEDS: POTASSIUM CHLORIDE 100 ML IVPB ×2 (11:20→14:27)
[2018-04-24] MEDS: FAMOTIDINE 20 MG TAB GTB (23:05)
[2018-04-25] MEDS: VANCOMYCIN HCL 250 MG/5ML POSYG PO ×3 (05:00→19:36)
[2018-04-25 05:56] LABS: WHITE BLOOD COUNT 11.3 10^3/ul (4.8-10.8)
[2018-04-25 05:56] LABS: ABNORMAL IP MESSAGE 1; HEMATOCRIT 22.4 % (42.0-52.0); HEMOGLOBIN 7.5 g/dl (14.0-18.0); MEAN CORPUSCULAR HEMOGLOBIN 35.7 pg (29.0-33.0); MEAN CORPUSCULAR HGB CONC 33.5 g/dl (32.0-37.0); MEAN CORPUSCULAR VOLUME 106.7 fl (82.0-101.0); MEAN PLATELET VOLUME 13.9 fl (7.4-10.4); NUCLEATED RED BLOOD CELLS% 4.5 /100WBC (0.0-0.0); PLATELET COUNT 85 10^3/UL (140-415); POSITIVE DIFF @See below; RED CELL DISTRIBUTION WIDTH 27.5 % (11.5-14.5)
[2018-04-25 06:15] LABS: ADD MAN DIFF? YES
[2018-04-25 07:35] LABS: ANION GAP 15 (5-13); BLOOD UREA NITROGEN 93 mg/dl (7-20); CALCIUM 8.4 mg/dl (8.4-10.2); CARBON DIOXIDE 17 mmol/L (21-31); CHLORIDE 104 mmol/L (97-110); CREATININE 2.05 mg/dl (0.61-1.24); GLUCOSE 143 mg/dl (70-220); POTASSIUM 4.4 mmol/L (3.5-5.1); SODIUM 136 mmol/L (135-144)
[2018-04-25 08:19] LABS: ACANTHOCYTES 1+ (0-0); ANISOCYTOSIS 2+ (0-0); BAND NEUTROPHILS % (M) 27 % (0-4); BURR CELLS 1+ (0-0); ERYTHROBLAST% (NRBC) (M) 4 % (0-0); GIANT THROMBO% (M) 3 % (0-0); LYMPHOCYTES #M 0.9 10^3/ul (0.8-2.9); LYMPHOCYTES % (M) 8 % (15-51); MONOCYTE #M 1.6 10^3/ul (0.3-0.9); MONOCYTES % (M) 15 % (0-11); MYELOCYTES #M 0.2 10^3/ul (0.0-0.0); MYELOCYTES % (M) 2 % (0-0); OVALOCYTES 1+ (0-0); PLATELET ESTIMATE DECREASED; PLATELET MORPHOLOGY COMMENT @See below; POIKILOCYTOSIS 1+ (0-0); POLYCHROMASIA 2+ (0-0); REACTIVE LYMPHOCYTES #M 0.1 10^3/ul (0.0-0.0); REACTIVE LYMPHOCYTES% (M) 1 % (0-0); SEG NEUT #M 5.7 10^3/ul (1.6-7.5); SEGMENTED NEUTROPHILS (M) % 47 % (39-77); SMUDGE%M 32 % (0-0); TEAR DROP CELLS 1+ (0-0)
[2018-04-25] MEDS: MIDODRINE 5 MG TAB PO ×3 (09:00→19:36)
[2018-04-25] MEDS: COLLAGENASE 5 GM (UD JAR) TOP (09:01)
[2018-04-25] MEDS: FINASTERIDE 5 MG TAB GTB (09:02)
[2018-04-25] MEDS: MULTIVIT/CA CARB/B CMPLX/FA TAB GTB (09:02)
[2018-04-25] MEDS: ASCORBIC ACID 250 MG TAB GTB (09:02)
[2018-04-25] MEDS: ESCITALOPRAM 10 MG TAB GTB (09:02)
[2018-04-25] MEDS: ZINC OXIDE 20% 30 GM OINT TOP (09:03)
[2018-04-25] MEDS: BALSAM PERU/CASTOR OIL 60 GM TUBE TOP (09:03)
[2018-04-25] MEDS: HYDROCODONE/APAP (5/325) TAB PO (13:32)
[2018-04-25 14:35] LABS: IMMEDIATE SPIN CROSSMATCH 1 1
[2018-04-25] MEDS ORDERED: CA CHLORIDE 10% 10 ML SYRINGE (18:00)
[2018-04-25] MEDS ORDERED: VERAPAMIL 5 MG INJ (18:00)
[2018-04-25] MEDS ORDERED: EPINEPHrine 0.1 MG/ML SYG ×2 (18:00→20:04)
[2018-04-25] MEDS ORDERED: morphine 2 MG INJ (18:29)
[2018-04-25] MEDS: morphine 2 MG INJ IV (18:33)
[2018-04-25 19:43] LABS: LACTIC ACID 10.2 mmol/L (0.5-2.0)
[2018-04-25 20:21] LABS: AADO2 Arterial 624.9 mmHg (7.0-24.0); Arterial Base Excess -21.8 mmol/L (-3.0-3); Arterial Blood Gas Oxygen Sat 55.1 mmHG (95.0-100.0); Arterial COHb 0.3 % (0.0-3.0); Arterial Fraction of Oxyhgb 54.7 % (93.0-99.0); Arterial HCO3 9.4 mmol/L (22.0-26.0); Arterial MetHb 0.5 % (0.0-1.5); Arterial pCO2 44.9 mmhg (35-45); MODE VENT - VC+; Site Right Brachial
[2018-04-25 23:32] LABS: AADO2 Arterial 443.4 mmHg (7.0-24.0); Arterial Base Excess -21.1 mmol/L (-3.0-3); Arterial Blood Gas Oxygen Sat 98.8 mmHG (95.0-100.0); Arterial COHb 0.2 % (0.0-3.0); Arterial Fraction of Oxyhgb 98.1 % (93.0-99.0); Arterial HCO3 8.2 mmol/L (22.0-26.0); Arterial MetHb 0.5 % (0.0-1.5); Arterial pCO2 30.7 mmhg (35-45); MODE VENT - AC; Site Right Brachial
[2018-04-26] MEDS: FAMOTIDINE 20 MG TAB GTB (01:24)
[2018-04-26] MEDS: COLLAGENASE 5 GM (UD JAR) TOP ×2 (01:24→08:12)
[2018-04-26] MEDS: VANCOMYCIN HCL 250 MG/5ML POSYG PO ×3 (01:24→11:50)
[2018-04-26] MEDS: PHENYLephrine 20MG IN 250 ML 250 ML IV ×6 (02:08→08:09)
[2018-04-26] MEDS ORDERED: NA BICARBONATE 8.4% 50 ML SYG (02:25)
[2018-04-26] MEDS: NA BICARBONATE 8.4% 50 ML SYG IV (02:36)
[2018-04-26] MEDS: SOD CHLORIDE 0.9% 500 ML IV (02:37)
[2018-04-26] MEDS: NORepinephrine 8MG/250 ML (PMX 250 ML IV ×2 (03:32→08:12)
[2018-04-26] MEDS: VASOPRESSIN 60 UNIT in DEXTROSE 5% 57 ML IV (05:21)
[2018-04-26 05:23] LABS: AADO2 Arterial 482.7 mmHg (7.0-24.0); Arterial Blood Gas Oxygen Sat 93.9 mmHG (95.0-100.0); Arterial COHb 0.3 % (0.0-3.0); Arterial Fraction of Oxyhgb 93.2 % (93.0-99.0); Arterial HCO3 8.9 mmol/L (22.0-26.0); Arterial MetHb 0.4 % (0.0-1.5); Arterial pCO2 28.3 mmhg (35-45); Blood Gas Low PEEP Setting 0 cmH2O; MODE VENT - AC; Site A-Line
[2018-04-26 06:19] LABS: ANION GAP 19 (5-13); BLOOD UREA NITROGEN 96 mg/dl (7-20); CALCIUM 7.4 mg/dl (8.4-10.2); CHLORIDE 108 mmol/L (97-110); CREATININE 2.16 mg/dl (0.61-1.24); POTASSIUM 5.4 mmol/L (3.5-5.1); SODIUM 137 mmol/L (135-144)
[2018-04-26 06:21] LABS: CARBON DIOXIDE 10 mmol/L (21-31)
[2018-04-26 06:22] LABS: GLUCOSE < 20 mg/dl (70-220)
[2018-04-26 06:26] LABS: LACTIC ACID 12.7 mmol/L (0.5-2.0)
[2018-04-26] MEDS: SODIUM BICARBONATE (IV ADD) 150 MEQ in DEXTROSE 5% 1,000 ML IV (06:27)
[2018-04-26] MEDS ORDERED: DEXTROSE 5% 1,000 ML IV (06:30)
[2018-04-26 06:46] LABS: WHITE BLOOD COUNT 18.6 10^3/ul (4.8-10.8)
[2018-04-26 06:46] LABS: ABNORMAL IP MESSAGE 1; HEMOGLOBIN 7.6 g/dl (14.0-18.0); MEAN CORPUSCULAR HEMOGLOBIN 34.9 pg (29.0-33.0); MEAN CORPUSCULAR HGB CONC 31.7 g/dl (32.0-37.0); MEAN CORPUSCULAR VOLUME 110.1 fl (82.0-101.0); MEAN PLATELET VOLUME 13.4 fl (7.4-10.4); PLATELET COUNT 48 10^3/UL (140-415); POSITIVE DIFF @See below; RED BLOOD COUNT 2.18 10^6/ul (4.70-6.10); RED CELL DISTRIBUTION WIDTH 26.4 % (11.5-14.5)
[2018-04-26 06:52] LABS: ADD MAN DIFF? YES
[2018-04-26] MEDS: DEXTROSE 50% 50 ML SYRINGE IV ×2 (07:18→09:27)
[2018-04-26 07:58] LABS: AADO2 Arterial 457.8 mmHg (7.0-24.0); Allen Test ACCEPTAB; Arterial Base Excess -20.3 mmol/L (-3.0-3); Arterial Blood Gas Oxygen Sat 96.2 mmHG (95.0-100.0); Arterial COHb 0.2 % (0.0-3.0); Arterial Fraction of Oxyhgb 95.2 % (93.0-99.0); Arterial HCO3 8.1 mmol/L (22.0-26.0); Arterial MetHb 0.8 % (0.0-1.5); Arterial pCO2 28.4 mmhg (35-45); MODE VENT - AC; Site Right Radial
[2018-04-26] MEDS: MULTIVIT/CA CARB/B CMPLX/FA TAB GTB (08:43)
[2018-04-26] MEDS: FINASTERIDE 5 MG TAB GTB (08:43)
[2018-04-26] MEDS: ESCITALOPRAM 10 MG TAB GTB (08:43)
[2018-04-26] MEDS: ASCORBIC ACID 250 MG TAB GTB (08:44)
[2018-04-26] MEDS: MIDODRINE 5 MG TAB PO ×2 (08:44→12:38)
[2018-04-26] MEDS: SODIUM BICARBONATE (IV ADD) 100 MEQ in DEXTROSE 5%-0.45% NACL 1,000 ML IV (08:57)
[2018-04-26] MEDS: ZINC OXIDE 20% 30 GM OINT TOP (09:00)
[2018-04-26] MEDS ORDERED: PHENYLephrine 20MG IN 250 ML 250 ML (09:21)
[2018-04-26 09:27] LABS: ANISOCYTOSIS 2+ (0-0); BAND NEUTROPHILS #M 7.8 10^3/ul (0.0-0.6); BAND NEUTROPHILS % (M) 42 % (0-4); BURR CELLS 3+ (0-0); ERYTHROBLAST% (NRBC) (M) 12 % (0-0); GIANT THROMBO% (M) 3 % (0-0); LYMPHOCYTES #M 1.1 10^3/ul (0.8-2.9); LYMPHOCYTES % (M) 6 % (15-51); METAMYELOCYTES #M 0.5 10^3/ul (0.0-0.0); METAMYELOCYTES %M 3 % (0-0); MICROCYTOSIS 1+ (0-0); MONOCYTE #M 0.7 10^3/ul (0.3-0.9); MONOCYTES % (M) 4 % (0-11); MYELOCYTES #M 0.9 10^3/ul (0.0-0.0); MYELOCYTES % (M) 5 % (0-0); PLATELET ESTIMATE SIG DECREASED; POIKILOCYTOSIS 3+ (0-0); POLYCHROMASIA 2+ (0-0); REACTIVE LYMPHOCYTES #M 0.3 10^3/ul (0.0-0.0); REACTIVE LYMPHOCYTES% (M) 2 % (0-0); SEG NEUT #M 8.5 10^3/ul (1.6-7.5); SEGMENTED NEUTROPHILS (M) % 38 % (39-77); SMUDGE%M 6 % (0-0)
[2018-04-26] MEDS ORDERED: DEXTROSE 50% 50 ML SYRINGE IV (09:30)
[2018-04-26] MEDS: PHENYLephrine 80 MG in DEXTROSE 5% 242 ML IV (10:39)
[2018-04-26] MEDS: NORepinephrine 32 MG in DEXTROSE 5% 218 ML IV (10:40)
[2018-04-26] MEDS: BALSAM PERU/CASTOR OIL 60 GM TUBE TOP (12:35)
[2018-04-26 13:08] LABS: WHITE BLOOD COUNT 19.3 10^3/ul (4.8-10.8)
[2018-04-26 13:08] LABS: ABNORMAL IP MESSAGE 1; HEMATOCRIT 22.8 % (42.0-52.0); MEAN CORPUSCULAR HEMOGLOBIN 32.4 pg (29.0-33.0); MEAN CORPUSCULAR HGB CONC 28.9 g/dl (32.0-37.0); MEAN CORPUSCULAR VOLUME 111.8 fl (82.0-101.0); MEAN PLATELET VOLUME 12.4 fl (7.4-10.4); PLATELET COUNT 45 10^3/UL (140-415); POSITIVE DIFF @See below; RED BLOOD COUNT 2.04 10^6/ul (4.70-6.10); RED CELL DISTRIBUTION WIDTH 26.6 % (11.5-14.5)
[2018-04-26 13:15] LABS: ADD MAN DIFF? YES; HEMOGLOBIN 6.6 g/dl (14.0-18.0)
[2018-04-26 13:30] LABS: ANION GAP 21 (5-13); BLOOD UREA NITROGEN 88 mg/dl (7-20); CALCIUM 7.2 mg/dl (8.4-10.2); CHLORIDE 109 mmol/L (97-110); CREATININE 2.16 mg/dl (0.61-1.24); GLUCOSE 87 mg/dl (70-220); SODIUM 136 mmol/L (135-144)
[2018-04-26] MEDS ORDERED: VANCOMYCIN IV PER PHARMACY XX (13:30)
[2018-04-26 13:39] LABS: CARBON DIOXIDE 6 mmol/L (21-31); POTASSIUM 6.2 mmol/L (3.5-5.1)
[2018-04-26 13:53] LABS: ANISOCYTOSIS 2+ (0-0); BAND NEUTROPHILS #M 6.3 10^3/ul (0.0-0.6); BAND NEUTROPHILS % (M) 33 % (0-4); ERYTHROBLAST% (NRBC) (M) 10 % (0-0); HYPOCHROMASIA 2+ (0-0); LYMPHOCYTES #M 2.1 10^3/ul (0.8-2.9); LYMPHOCYTES % (M) 11 % (15-51); METAMYELOCYTES #M 0.3 10^3/ul (0.0-0.0); METAMYELOCYTES %M 2 % (0-0); MICROCYTOSIS 1+ (0-0); MONOCYTE #M 1.7 10^3/ul (0.3-0.9); MONOCYTES % (M) 9 % (0-11); MYELOCYTES #M 1.7 10^3/ul (0.0-0.0); MYELOCYTES % (M) 9 % (0-0); PLATELET ESTIMATE SIG DECREASED; POIKILOCYTOSIS 2+ (0-0); POLYCHROMASIA 1+ (0-0); PROMYELOCYTES #M 0.1 10^3/ul (0-0); PROMYELOCYTES % (M) 1 % (0-0); REACTIVE LYMPHOCYTES #M 0.1 10^3/ul (0.0-0.0); REACTIVE LYMPHOCYTES% (M) 1 % (0-0); SEG NEUT #M 7.8 10^3/ul (1.6-7.5); SEGMENTED NEUTROPHILS (M) % 34 % (39-77); SMUDGE%M 5 % (0-0); SPHEROCYTES 1+ (0-0)
[2018-04-26] MEDS ORDERED: metroNIDAZOLE 500 MG/NS (PMX) 100 ML IVPB (14:00)
[2018-04-26] MEDS ORDERED: MEROPENEM 500MG/50 ML (PMX) 50 ML IVPB ×2 (14:30)
[2018-04-26] MEDS ORDERED: VANCOMYCIN HCL 1.25 GM in SOD CHLORIDE 0.9% 250 ML IVPB (15:00)
== END 2018-04-26 14:18 | disposition expired | DRG 870 ==
LOC: 6WM 04-17 02:09 → ICU 04-25 21:02 → E/R 09:26 → ICU 12:05
PROC: 5A1955Z Respiratory Ventilation, Greater than 96 Consecutive Hours (ICD-10-PCS; principal; 2018-04-15)
PROC: 30233N1 Transfusion of Nonautologous Red Blood Cells into Peripheral Vein, Percutaneous Approach (ICD-10-PCS; 2018-04-15)
PROC: 5A1D70Z Performance of Urinary Filtration, Intermittent, Less than 6 Hours Per Day (ICD-10-PCS; 2018-04-17)
PROC: 5A12012 Performance of Cardiac Output, Single, Manual (ICD-10-PCS; 2018-04-25)
PROC: 0W9B30Z Drainage of Left Pleural Cavity with Drainage Device, Percutaneous Approach (ICD-10-PCS; 2018-04-25)
DX: A41.9 Sepsis, unspecified organism (principal); L89.153 Pressure ulcer of sacral region, stage 3; N18.6 End stage renal disease; J93.0 Spontaneous tension pneumothorax; R65.21 Severe sepsis with septic shock; D61.818 Other pancytopenia; J96.10 Chronic respiratory failure, unspecified whether with hypoxia or hypercapnia; A04.72 Enterocolitis due to Clostridium difficile, not specified as recurrent; J98.11 Atelectasis; Z99.11 Dependence on respirator [ventilator] status; I13.2 Hypertensive heart and chronic kidney disease with heart failure and with stage 5 chronic kidney disease, or end stage renal disease; I42.9 Cardiomyopathy, unspecified; E87.2 Acidosis; G93.1 Anoxic brain damage, not elsewhere classified; D63.1 Anemia in chronic kidney disease; D50.9 Iron deficiency anemia, unspecified; E11.22 Type 2 diabetes mellitus with diabetic chronic kidney disease; E87.70 Fluid overload, unspecified; E87.6 Hypokalemia; F32.9 Major depressive disorder, single episode, unspecified; I46.9 Cardiac arrest, cause unspecified; I95.9 Hypotension, unspecified; I50.9 Heart failure, unspecified; I25.10 Atherosclerotic heart disease of native coronary artery without angina pectoris; I51.7 Cardiomegaly; N40.0 Benign prostatic hyperplasia without lower urinary tract symptoms; R13.10 Dysphagia, unspecified; Z66 Do not resuscitate; Z99.2 Dependence on renal dialysis; Z93.0 Tracheostomy status; Z93.1 Gastrostomy status; Z95.5 Presence of coronary angioplasty implant and graft; Z95.0 Presence of cardiac pacemaker; Z87.01 Personal history of pneumonia (recurrent); Z87.440 Personal history of urinary (tract) infections
CPT/HCPCS: 36430; 36600; 71045; 74018; 80048; 80053; 82270; 82607; 82728; 82746; 82803; 82962; 83010; 83540; 83605; 83615; 83625; 83735; 84100; 84155; 84165; 84466; 85025; 85045; 86850; 86860; 86870; 86880; 86900; 86901; 86906; 86920; 86971; 87075; 87081; 87340; 90686; 90935; 92950; 93970; 94002; 94003; 94640; 94664; 96365; 99291-25